=== PATIENT | male | born 1930 | race Caucasian/White ===

== ENCOUNTER 2018-06-27 03:19 | Inpatient (IN) | payer BC, OTHER ==
--- NOTE | 2018-06-27 03:31 | PDOC ---
History of Present Illness - General Stated Complaint: CHEST PAIN Time Seen by Provider: 06/27/18 03:28 - History of Present Illness Initial Comments: 06/27/18 03:29 88 yo M with h/o HLD, HTN, IDDM, A-fib ( on Plavix ) who p/w chest pain. Patient reports waking up and turning on side at approximately 0200 this AM, and experiencing sudden onset of BL lower chest pressure, now slightly improved , unremitting, and present at rest. No identifiable triggers or alleviators. Patient denies h/o similiar pain in past. Reports Marsh x 1 week. at bedside to assist in report. No home O2 or duoneb requirements. Patient denies Palpitations, LOBO, leg pain/swelling, vision change, palpitations , cough, wheezing, orthopena, PND, leg swelling/pain, N/V, F,C, urinary complaints, hematuria, BPR, abdominal pain, diarrhea, constipation, lightheadedness, weakness, sensory changes. PMHx: as noted above. Denies h/o ACS/CA, stent placement, CABG, PE/DVT. ROS: as noted SHx: Distant smoking history. Social Etoh. No recent Etoh intake. Denies h/o pancreatitis, or cholecystecomy. Allergies: NKDA Past History - Past Medical History Allergies/Adverse Reactions: Allergies Allergy/AdvReac Type Severity Reaction Status Date / Time No Known Allergies Allergy Verified 06/27/18 04:04 Home Medications: Ambulatory Orders Aspirin [ASA -] 81 mg PO DAILY 03/30/15 Clopidogrel Bisulfate [Plavix -] 75 mg PO DAILY 03/30/15 Finasteride [Proscar] 5 mg PO DAILY 03/30/15 Glipizide [Glipizide ER] 5 mg PO DAILY 03/30/15 Hydrochlorothiazide 25 mg PO DAILY 03/30/15 Lisinopril [Prinivil -] 40 mg PO DAILY 03/30/15 Metformin HCl [Glucophage] 1,000 mg PO BID 03/30/15 Pioglitazone HCl [Actos] 30 mg PO DAILY 03/30/15 Simvastatin [Zocor -] 20 mg PO HS 03/30/15 Anemia: No Asthma: No Cancer: No Cardiac Disorders: Yes (cad) CVA: No COPD: No CHF: No Dementia: No Diabetes: No GI Disorders: No Disorders: No HTN: Yes Hypercholesterolemia: Yes Liver Disease: No Seizures: No Thyroid Disease: No - Suicide/Smoking/Psychosocial Hx Smoking History: Never smoked Have you smoked in the past 12 months: No Review of Systems - Review of Systems Comments:: 06/27/18 03:29 GENERAL/CONSTITUTIONAL: No fever or chills. No weakness. HEAD, EYES, EARS, NOSE AND THROAT: No change in vision. No ear pain or discharge. No sore throat. CARDIOVASCULAR: + chest pain and shortness of breath RESPIRATORY: No cough, wheezing, or hemoptysis. GASTROINTESTINAL: No nausea, vomiting, diarrhea or constipation. GENITOURINARY: No dysuria, frequency, or change in urination. MUSCULOSKELETAL: No joint or muscle swelling or pain. No neck or back pain. SKIN: No rash NEUROLOGIC: No headache, vertigo, loss of consciousness, or change in strength/ sensation. ENDOCRINE: No increased thirst. No abnormal weight change HEMATOLOGIC/LYMPHATIC: No anemia, easy bleeding, or history of blood clots. ALLERGIC/IMMUNOLOGIC: No hives or skin allergy. *Physical Exam - Physical Exam Comments: 06/27/18 03:30 GENERAL: Awake, alert, and fully oriented, in no acute distress HEAD: No signs of trauma, normocephalic, atraumatic EYES: PERRLA, EOMI, sclera anicteric, conjunctiva clear ENT: Hearing grossly normal, nares patent, oropharynx clear without exudates. Moist mucosa NECK: Normal ROM, supple, no lymphadenopathy, JVD, or masses LUNGS: No distress, speaks full sentences, clear to auscultation bilaterally HEART: Irregular rate and nml rhythm, normal S1 and S2, no murmurs, rubs or gallops, peripheral pulses normal and equal bilaterally. ABDOMEN:+ Epigastric and RUQ ttp. Soft, NDS, normoactive bowel sounds. No guarding, no rebound. No masses EXTREMITIES : Normal inspection, Normal range of motion, no edema. No clubbing or cyanosis. NEUROLOGICAL: Cranial nerves II through XII grossly intact. Normal speech, normal gait, no focal sensorimotor deficits SKIN: Warm, Dry, normal turgor, no rashes or lesions noted Heart Score/ECG Review - History History: Slightly suspicious - Electrocardiogram EKG: Non specific repolarization disturbance - Age Age: >/= 65 - Risk Factors Risk Factors Heart Score: Yes Hx Hypercholesterolemia, Yes Hx Hypertension, Yes Hx Diabetes, Yes Smoking History, Yes Positive family hx of cardiac disease, Yes Hx Obesity Based on the list above the patient has:: >/=3 risk factors or Hx atherosclerotic disease - Troponin Troponin: </= normal limit - Score Heart Score - Total: 5 ED Treatment Course - LABORATORY CBC & Chemistry Diagram: 06/27/18 03:25 06/27/18 04:45 - RADIOLOGY Radiology Studies Ordered: Category Date Time Status CXRPORT [CHEST X-RAY PORTABLE*] [RAD] Stat Radiology 06/27/18 03:29 Ordered Medical Decision Making - Medical Decision Making 06/27/18 03:30 88 yo M with h/o HLD, SUGAR ( CPAP) HTN, IDDM, A-fib ( on Plavix ) who p/w chest pain at rest beginning this evening. Vitals wnl, AF, A&Ox3. Physical exam notable for RUQ and epigastria ttp. + Marsh x 1 week. ACS/CA r/o/ R/o PNA. Consider CHF, asthma, COPD. Will assess for pancreatitis, bliary dz. gastritis, pericardial or pleural effusions, cardiac dysarrythmias, hypoglycemia, electrolyte abnml, metabolic and toxic derangements, acid-base disturbances, infection. Will reassess. ED Course: 06/27/18 04:04 EKG: A-fib with HR 108, Absent CARLOS MANUEL, STD. + L ant fasc. block. Absent Q waves. Nml R wave progression. 06/27/18 04:45 Patient with HR 141, developed audible wheezing at bedside, with one episode of non bilious non bloody emesis. Placed on CPAP. HR imrpoved to 104 following Diltiazem. Diltiazem 10, Zofran 4 06/27/18 04:47 EKG: with Af-ib HR 141, Trop: Neg 06/27/18 05:45 BNP 1105 06/27/18 05:49 Flu: Neg 06/27/18 05:50 06/27/18 05:54 BUN/Cr: 44/1.5 Lipase 1500 AST/ALT: 728/347 ALK PHOSPH: 332 T bili: 2.0 Possible biliary obstruction. Will obtain RUQ U/S. 06/27/18 06:00 Likely pancreatitis/early BISAP score 2 CTAP 06/27/18 06:07 NPO, TG, NS 500 cc 06/27/18 06:26 Plan to admit to medicine for pancreatitis, chest pain and SOB at rest, elevated heart score ~5 Patient endorsed to day team. Awaiting medicine call back. pending admission, CTAP, RUQ U/S. *DC/Admit/Observation/Transfer Diagnosis at time of Disposition: Chest pain at rest, Atrial fibrillation with RVR Pancreatitis Qualifiers: Chronicity: acute Pancreatitis type: unspecified pancreatitis type Acute pancreatitis complication: unspecified Qualified Code(s): K85.90 - Acute pancreatitis without necrosis or infection, unspecified - Discharge Dispostion Condition at time of disposition: Stable Decision to Admit order: Yes - Referrals Referrals: Romario Euceda MD [Primary Care Provider] - - Patient Instructions Printed Discharge Instructions: DI for Atypical Chest Pain Additional Instructions: Please return to the emergency department with any new or worsening symptoms or concerns. Please follow up with your primary care physician within 72 hours. - Post Discharge Activity - Attestations Physician Attestion: 06/27/18 03:30 I attest to the information provided in this note.
[2018-06-27 04:04] VITALS: BMI 36.3
[2018-06-27] MEDS ORDERED: ASPIRIN 81 MG CHEWABLE TABLETS PO ONE (04:09)
[2018-06-27 04:26] LABS: BASO % 0.4 % (0-2.0); EOS % 0.2 % (0-4.5); HEMATOCRIT 37.1 % (35.4-49); HEMOGLOBIN 12.8 GM/dL (11.7-16.9); LYMPH % 8.6 % (8-40); MCH 30.3 pg (25.7-33.7); MCHC 34.4 g/dl (32.0-35.9); MEAN CELL VOLUME 88.1 fl (80-96); MEAN PLT VOLUME 9.6 fl (7.5-11.1); MONO % 5.9 % (3.8-10.2); NEUT % 84.9 % (42.8-82.8); PLATELET COUNT 165 K/MM3 (134-434); RBC 4.21 M/mm3 (4.00-5.60); RDW 16.6 % (11.9-15.9); WHITE BLOOD COUNT 7.9 K/mm3 (4.0-10.0)
[2018-06-27] MEDS ORDERED: ASPIRIN 81 MG CHEWABLE TABLETS ONE (04:32)
[2018-06-27] MEDS ORDERED: ONDANSETRON 4 MG/2 ML VIAL ONE (04:36)
--- NOTE | 2018-06-27 04:36 | PDOC ---
Attending Attestation - Resident Resident Name: Conner Guerrero - ED Attending Attestation I have performed the following: I have examined & evaluated the patient, The case was reviewed & discussed with the resident, I agree w/resident's findings & plan - HPI HPI: 06/27/18 04:45 Pt comes with CP that woke him up. - Physicial Exam PE: 06/27/18 20:59 Agree with resident exam. - Medical Decision Making 06/27/18 06:04 Pt has pancreatitis and hepatitis. We will send him to CT and admit to med surg under the hospitalist. Pt was refusing morphine that I had ordered for him earlier, but he states that he continues to feel discomfort, so I conviced him to take morphine and he reordered it, as he is willing to try it.
[2018-06-27] MEDS ORDERED: ONDANSETRON 4 MG/2 ML VIAL IVPB ONE (04:44)
[2018-06-27] MEDS ORDERED: dilTIAZem HCL 50 MG/10 ML - 10 ML VIAL IVPUSH ONE (04:44)
[2018-06-27] MEDS ORDERED: dilTIAZem HCL 50 MG/10 ML - 10 ML VIAL ONE (04:45)
[2018-06-27 05:52] LABS: ALBUMIN 3.2 g/dl (3.4-5.0); ALK PHOS 332 U/L (45-117); ANION GAP 11 MMOL/L (8-16); BLOOD UREA NITROGEN 44 mg/dL (7-18); CHLORIDE 96 mmol/L (98-107); CO2 28 mmol/L (21-32); CREATININE 1.5 mg/dL (0.55-1.3); GLUCOSE,RANDOM 213 mg/dL (74-106); LIPASE > 1500 U/L (73-393); POTASSIUM 3.8 mmol/L (3.5-5.1); SGOT/AST 728 U/L (15-37); SGPT/ALT 347 U/L (13-61); SODIUM 134 mmol/L (136-145); TOT PROT 7.2 g/dl (6.4-8.2)
[2018-06-27] MEDS ORDERED: morphine CARPU-JECT 2 MG/1 ML DISP.SYRIN IVPUSH ONE ×2 (05:54→07:02)
[2018-06-27] MEDS ORDERED: MORPHINE SULFATE 2 MG/ML VIAL ONE ×2 (05:58→07:28)
[2018-06-27] MEDS ORDERED: SODIUM CHLORIDE 500 ML IV STA (06:00)
--- NOTE | 2018-06-27 09:28 | HP ---
CHIEF COMPLAINT: Chest Pain PCP: Dr Romario Euceda ([facility]) HISTORY OF PRESENT ILLNESS: Pt is an 88 y/o gentleman (Romansh War Garryowen) with a significant past medical history of HLD, BPH, HTN, IDDM, A-fib (on Plavix), Lower extremity claudication , and SUGAR on CPAP who presented to [facility] due to chest pain and nausea. Pt endorses that around 2 am this morning he was lying in bed when he suddenly experienced a tightness in his chest. Pt states that this felt like a "seatbelt " across his chest. Pt also endorses feeling short of breath for the past 1 week a well. Pt endorses he had Urdu food that night which was greasy. Pt states that he experienced a similar episode in November while he was in [place]. Denies heavy alcohol use. Denies shortness of breath, chest pain, nausea/ vomiting. Social Hx: Former smoker quit 30+ years ago. 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 FH: Father DM, Cancer?. Mother-Healthy. Siblings Healthy Surgical Hx: Kidney abscess removal. Meniscus surgery left knee. ER course was notable for: (1) CTAP--> Acute Calculus Cholecystitis. 3 mm CBD stone at Ampulla Vatter (2) Lipase > 1500 Family History: Allergies No Known Allergies Allergy (Verified 06/27/18 04:04) HOME MEDICATIONS: Home Medications Medication Instructions Recorded Aspirin [ASA -] 81 mg PO DAILY 03/30/15 Clopidogrel Bisulfate [Plavix -] 75 mg PO DAILY 03/30/15 Finasteride [Proscar] 5 mg PO DAILY 03/30/15 Glipizide [Glipizide ER] 5 mg PO DAILY 03/30/15 Hydrochlorothiazide 25 mg PO DAILY 03/30/15 Lisinopril [Prinivil -] 40 mg PO DAILY 03/30/15 Metformin HCl [Glucophage] 1,000 mg PO BID 03/30/15 Pioglitazone HCl [Actos] 30 mg PO DAILY 03/30/15 Simvastatin [Zocor -] 20 mg PO HS 03/30/15 REVIEW OF SYSTEMS CONSTITUTIONAL: PRESENT: nausea HEENT: Absent: rhinorrhea, nasal congestion, throat pain, throat swelling, difficulty swallowing, mouth swelling, ear pain, eye pain, visual changes CARDIOVASCULAR: present: chest pain (at time of incident) RESPIRATORY: Absent: cough, shortness of breath, dyspnea with exertion, orthopnea, wheezing, stridor, hemoptysis GASTROINTESTINAL: Absent: abdominal pain, abdominal distension, nausea, vomiting, diarrhea, constipation, melena, hematochezia GENITOURINARY: Absent: dysuria, frequency, urgency, hesitancy, hematuria, flank pain, genital pain MUSCULOSKELETAL: Absent: myalgia, arthralgia, joint swelling, back pain, neck pain SKIN: Absent: rash, itching, pallor HEMATOLOGIC/IMMUNOLOGIC: Absent: easy bleeding, easy bruising, lymphadenopathy, frequent infections ENDOCRINE: Absent: unexplained weight gain, unexplained weight loss, heat intolerance, cold intolerance NEUROLOGIC: Absent: headache, focal weakness or paresthesias, dizziness, unsteady gait, seizure, mental status changes, bladder or bowel incontinence PSYCHIATRIC: Absent: anxiety, depression, suicidal or homicidal ideation, hallucinations. PHYSICAL EXAMINATION Vital Signs - 24 hr 06/27/18 06/27/18 06/27/18 03:19 03:40 04:20 Temperature 98.1 F 97.6 F 98.2 F Pulse Rate 56 L Pulse Rate [ 82 88 Right Apical] Respiratory 18 20 20 Rate Blood Pressure 131/69 Blood Pressure 161/77 155/79 [Right Arm] O2 Sat by Pulse 97 94 L Oximetry (%) 06/27/18 06/27/18 06/27/18 05:02 09:11 09:13 Temperature Pulse Rate 65 Pulse Rate [ Right Apical] Respiratory Rate Blood Pressure Blood Pressure [Right Arm] O2 Sat by Pulse 100 97 97 Oximetry (%) GENERAL: AAOx3, NAD, pleasant gentleman HEAD: NC/AT EYES: Sclera Jaundice. EOMI EARS, NOSE, THROAT: Ears normal, nares patent, oropharynx clear without exudates. Moist mucous membranes. NECK: No JVD appreciated LUNGS: Dec BS @ Bases HEART:Irregularly irregular ABDOMEN: Obese, Tympanic. Nontender. Dilated periumbilical veins. No fluid wave MUSCULOSKELETAL: FROM throughout UPPER EXTREMITIES: No CCE. Ring finger Right hand amputated LOWER EXTREMITIES: No CCE. Onychomycosis PSYCHIATRIC: Cooperative. Good eye contact. Appropriate mood and affect. SKIN: No rashes or lesions appreciated Laboratory Results - last 24 hr 06/27/18 06/27/18 06/27/18 03:25 03:25 03:25 WBC 7.9 RBC 4.21 Hgb 12.8 Hct 37.1 MCV 88.1 MCH 30.3 MCHC 34.4 RDW 16.6 H Plt Count 165 D MPV 9.6 Absolute Neuts (auto) 6.7 Neutrophils % 84.9 H D Lymphocytes % 8.6 D Monocytes % 5.9 Eosinophils % 0.2 Basophils % 0.4 Nucleated RBC % 0 Sodium Cancelled Potassium Cancelled Chloride Cancelled Carbon Dioxide Cancelled Anion Gap Cancelled BUN Cancelled Creatinine Cancelled Creat Clearance w eGFR Cancelled Random Glucose Cancelled Calcium Cancelled Total Bilirubin Cancelled AST Cancelled ALT Cancelled Alkaline Phosphatase Cancelled Creatine Kinase Cancelled Troponin I Cancelled B-Natriuretic Peptide Total Protein Cancelled Albumin Cancelled Triglycerides Lipase Influenza A (Rapid) Influenza B (Rapid) 06/27/18 06/27/18 06/27/18 04:45 04:45 04:45 WBC RBC Hgb Hct MCV MCH MCHC RDW Plt Count MPV Absolute Neuts (auto) Neutrophils % Lymphocytes % Monocytes % Eosinophils % Basophils % Nucleated RBC % Sodium 134 L Potassium 3.8 Chloride 96 L Carbon Dioxide 28 Anion Gap 11 BUN 44 H Creatinine 1.5 H Creat Clearance w eGFR 44.17 Random Glucose 213 H Calcium 9.0 Total Bilirubin 2.0 H AST 728 H ALT 347 H Alkaline Phosphatase 332 H Creatine Kinase 98 Troponin I < 0.02 B-Natriuretic Peptide 1105.9 H Total Protein 7.2 Albumin 3.2 L Triglycerides Lipase > 1500 H Influenza A (Rapid) Negative Influenza B (Rapid) Negative 06/27/18 06:30 WBC RBC Hgb Hct MCV MCH MCHC RDW Plt Count MPV Absolute Neuts (auto) Neutrophils % Lymphocytes % Monocytes % Eosinophils % Basophils % Nucleated RBC % Sodium Potassium Chloride Carbon Dioxide Anion Gap BUN Creatinine Creat Clearance w eGFR Random Glucose Calcium Total Bilirubin AST ALT Alkaline Phosphatase Creatine Kinase Troponin I B-Natriuretic Peptide Total Protein Albumin Triglycerides 125 Lipase Influenza A (Rapid) Influenza B (Rapid) ASSESSMENT/PLAN: Pt is an 88 y/o gentleman (Romansh War [place]) with a significant past medical history of HLD, BPH, HTN, IDDM, A-fib (on Plavix), Lower extremity claudication , and SUGAR on CPAP who presented to [facility] due to chest pain and nausea. #Gallstone Pancreatitis: CTAP--> Acute calculus cholecystitis. 3 mm CBD calculus seen at level of ampulla. CBD dilated at 0.8 cm. -NPO -LR@125cc/hr -GI consult--> Dr Ruvalcaba -Surgery Consult- Dr Hill #HLD Will hold Statin in light of Transaminitis #BPH Continue Proscar 5 mg daily #IDDM Will withhold pt's home dose Lantus Will start ISS #A-FIB A-fib with HR 108, Absent CARLOS MANUEL, STD. + L ant fasc. block. Absent Q waves. Nml R wave progression. -Not on any AC for unnown reason -[id number]--> 5-6 -Plavix/ASA on hold in light of anticipated surgery -Receiving Diltiazem CD 18 Daily at home. Started on Lopressor 25 BID currently. #HTN Will resume Lisinopril when Renal function WNL Withold Thiazides as known to cause pancreatitis. #SUGAR Continue CPAP #FEN LR@125cc/hr Monitor electrolytes NPO #DVT ppx: HepSQTID #Dispo Tele Visit type - Emergency Visit Emergency Visit: Yes ED Registration Date: 06/27/18 Care time: The patient presented to the Emergency Department on the above date and was hospitalized for further evaluation of their emergent condition. - New Patient This patient is new to me today: Yes Date on this admission: 06/27/18 - Critical Care Critical Care patient: No
[2018-06-27] MEDS ORDERED: PIPERACILLIN/TAZOB 3.375 GM 3.375 GM/50 ML BAG IVPB ONE (09:34)
[2018-06-27 09:42] LABS: LDH 540 U/L (87-246); TRIGLYCERIDES 152 mg/dL (0-150)
[2018-06-27] MEDS ORDERED: LACTATED RINGERS SOLUTION 1,000 ML/1,000 ML INFUS.BAG IV SCH (09:45)
[2018-06-27] MEDS ORDERED: PIPERACILLIN/TAZOB 3.375 GM 3.375 GM in DEXTROSE 5%-WATER - 50 ML IVPB SCH ×2 (10:00→18:00)
[2018-06-27] MEDS: INSULIN SLIDING SCALE (NOVOLOG) 1 VIAL SQ SCH ×3 (12:04→21:45)
[2018-06-27 12:22] LABS: MAGNESIUM 1.6 mg/dL (1.8-2.4); PHOSPHOROUS 3.2 mg/dL (2.5-4.9)
--- NOTE | 2018-06-27 12:22 | PN ---
Progress Note (short form) - Note Progress Note: Chief Complaint: Events noted, notes reviewed, abdominal discomfort with nausea and vomiting, denies any chest pain or dyspnea History of Present Illness: Seen and examined on telemetry. Full consult dictated - Current Medication List Current Medications: Current Medications Heparin Sodium (Porcine) (Heparin -) 5,000 unit SQ TID CEASAR Piperacillin Sod/Tazobactam (Sod 3.375 gm/ Dextrose) 50 mls @ 100 mls/hr IVPB Q8H-IV CEASAR; Protocol Piperacillin Sod/Tazobactam (Sod 3.375 gm/ Dextrose) 50 mls @ 100 mls/hr IVPB Q8H-IV CEASAR; Protocol Stop: 06/28/18 09:59 Last Admin: 06/27/18 09:45 Dose: 100 mls/hr Lactated Ringer's (Lactated Ringers Solution) 1,000 ml in 1,000 mls @ 125 mls/ hr IV ASDIR CEASAR Last Admin: 06/27/18 09:51 Dose: 125 mls/hr Insulin Aspart (Novolog Vial Sliding Scale -) 1 vial SQ ACHS CEASAR; Protocol Last Admin: 06/27/18 12:04 Dose: Not Given Home Medications Medication Instructions Recorded Aspirin [ASA -] 81 mg PO DAILY 03/30/15 Clopidogrel Bisulfate [Plavix -] 75 mg PO DAILY 03/30/15 Finasteride [Proscar] 5 mg PO DAILY 03/30/15 Glipizide [Glipizide ER] 5 mg PO DAILY 03/30/15 Hydrochlorothiazide 25 mg PO DAILY 03/30/15 Lisinopril [Prinivil -] 40 mg PO DAILY 03/30/15 Metformin HCl [Glucophage] 1,000 mg PO BID 03/30/15 Pioglitazone HCl [Actos] 30 mg PO DAILY 03/30/15 Simvastatin [Zocor -] 20 mg PO HS 03/30/15 Review of Systems Cardiovascular: As noted above Respiratory: denies: denies: Cough or Sputum Production Gastrointestinal: reports: Nausea, Vomiting and Abdominal Discomfort but denies Diarrhea or Constipation Musculoskeletal: No Symptoms Reported Endocrine: No Symptoms Reported - Objective Vital Signs: Last Vital Signs Temp Pulse Resp BP Pulse Ox 98.0 F 106 H 20 113/66 96 06/27/18 12:13 06/27/18 12:13 06/27/18 12:13 06/27/18 12:13 06/27/18 09:44 Intake & Output 06/24/18 06/25/18 06/26/18 06/27/18 23:59 23:59 23:59 23:59 Weight 272 lb 3.2 oz Constitutional: No Distress Neck: Supple Negative JVD No Bruit Cardiovascular: S1 S2 Irregularly Irregular Respiratory: clear to A&P Bilaterally Gastrointestinal: Soft Benign Normal Bowel Sounds Ext: Negative Edema Labs: Troponin, BNP 06/27/18 06/27/18 06/27/18 03:25 04:45 04:45 Troponin I Cancelled < 0.02 B-Natriuretic Peptide 1105.9 H CBC, BMP 06/27/18 03:25 06/27/18 04:45 Hepatic Panel Total Bilirubin 2.0 mg/dL (0.2-1) H 06/27/18 04:45 AST 728 U/L (15-37) H 06/27/18 04:45 ALT 347 U/L (13-61) H 06/27/18 04:45 Alkaline Phosphatase 332 U/L (45-117) H 06/27/18 04:45 Albumin 3.2 g/dl (3.4-5.0) L 06/27/18 04:45 Assessment/Plan ASSESSMENT: 1. Clinical presentation consistent with acute calculus cholecystitis 2. CAD coronary artery calcification angina pectoris 3. Diastolic LV dysfunction with clinical class 0 NYHA classification LV failure 4. Persistent atrial fibrillation [id number] score of 5-6 on no A/C unknown reason on ASA and Plavix 5. HTN 6. DM 7. Hypercholesterolemia 8. Chronic kidney disease PLAN: 1. B-Blockers 2. Resume Lisinopril therapy once renal function at baseline with caution and close monitoring of renal function 3. Withhold HCTZ therapy 4. Withhold statin therapy 5. Withhold ASA and Plavix therapy pending intervention (withhold at least for 5 -7 days), ideally patient should be A/C considering the above noted [id number] score of 5-6 6. 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 Paulina Myers [facility] [place]/Fabiola Garduno MD
--- NOTE | 2018-06-27 13:59 | CONS ---
DATE OF CONSULTATION: DATE OF DICTATION: 06/27/2018 CONSULTATION REQUESTED BY: Hospitalist Service. CHIEF COMPLAINT: Abdominal discomfort, cardiovascular evaluation. HISTORY OF PRESENT ILLNESS: History was obtained from the patient and his daughter, who was at the bedside. An 88-year-old male with known history of coronary artery disease, coronary artery calcification, angina pectoris, probable diastolic left ventricular dysfunction with clinical class 0 [place] Heart Association classification left ventricular failure, persistent atrial fibrillation on no anticoagulation therapy, [id number] score of 5 to 6, hypertensive cardiovascular disease, diabetes mellitus, hypercholesterolemia, who presented to [facility] with sudden onset of abdominal discomfort with associated nausea, vomiting. Upon evaluation patient was noted to have evidence of acute calculous cholecystitis. The patient was noticed to be in atrial fibrillation with adequate ventricular response. The patient denies any chest discomfort. The patient denies any dyspnea, orthopnea, paroxysmal nocturnal dyspnea or peripheral edema. The patient denies any palpitations, dizziness, lightheadedness or syncope. The patient denies any fatigue or tiredness. According to the patient, subsequent to the above-noted diagnosis of atrial fibrillation in November 2017 he was initiated on Plavix therapy to be administered in conjunction with aspirin. PAST MEDICAL HISTORY: Coronary artery disease, coronary artery calcification, angina pectoris, diastolic left ventricular dysfunction with clinical class 0 [place] heart Association classification left ventricular failure, persistent atrial fibrillation on no anticoagulation therapy, [id number] of 5 to 6, hypertensive cardiovascular disease, diabetes mellitus, hypercholesterolemia. SOCIAL HISTORY: Nonsmoker. FAMILY HISTORY: Positive for coronary artery disease. ALLERGIES: None reported. MEDICAL THERAPY AT HOME: Included aspirin 81 mg once a day, Plavix 75 mg once a day, Proscar 5 mg once a day, glipizide 5 mg once a day, hydrochlorothiazide 25 mg once a day, lisinopril 40 mg once a day, metformin 1000 mg twice a day, Actos 30 mg once a day, Zocor 20 mg once a day. REVIEW OF SYSTEMS: Head and Neck: Denies headache, photophobia, blurring of vision. Respiratory: No cough or sputum production. Cardiovascular: As noted above. Gastrointestinal: Reported abdominal discomfort, nausea, vomiting, denied any constipation or diarrhea. Genitourinary: History of benign prostatic hypertrophy. Musculoskeletal: History of degenerative joint disease. PHYSICAL EXAMINATION:Vital Signs: Blood pressure is 113/66 mmHg. Pulse rate is 106 beats per minute, irregular. Head and Neck: Pupils equal, reactive to light and accommodation. Extraocular muscles are intact. Anicteric sclerae. Negative JVD. No bruit appreciate. Chest: Clear to auscultation and percussion. Cardiovascular: S1, S2, irregularly irregular. No murmurs appreciated. Abdomen: Soft, benign. Normoactive bowel sounds. Extremities: Negative for edema. Distal pulses 1+. No calf tenderness. STUDIES: Electrocardiogram reveals he has atrial fibrillation with left axis deviation, poor R wave progression, nonspecific ST-T wave abnormality. Troponin I less than 0.02. B-natriuretic peptide is 81,105. CBC reveals a white cell count 7.9, hemoglobin 12.8, platelet count 155. Basic metabolic profile revealed a sodium 134, potassium 3.8, BUN 44, creatinine 1.5, glucose 213. AST 728, ALT 347, alkaline phosphatase 332. Total bilirubin 2.0. ASSESSMENT: 1. Clinical presentation consistent with acute calculous cholecystitis. 2. Coronary artery disease, coronary artery calcification on CT scan. 3. Angina pectoris, stable. 4. Diastolic left ventricular dysfunction with clinical class 0 [place] Heart Association classification left ventricular failure. 5. Persistent atrial fibrillation, [id number] (congestive heart failure, hypertension, age, diabetes and stroke with vascular disease) of 5-6 on no anticoagulation and on recent therapy on aspirin and Plavix. 6. Hypertensive cardiovascular disease. 7. Diabetes mellitus. 8. Hypercholesterolemia. 9. Chronic kidney disease. RECOMMENDATION: 1. Beta blockers. 2. Resumption of lisinopril once renal function at baseline with caution and close monitoring of renal function. 3. Withhold hydrochlorothiazide therapy. 4. Would hold statin therapy in view of liver function test abnormality. 5. Would hold aspirin and Plavix therapy pending intervention. Would hold at least 5-7 days. Ideally patient should be anticoagulated considering the above-noted [id number] score of 5 to 6, unless it is absolutely contraindicated. 6. If intervention is planned, there are no absolute contraindications in proceeding with planned interventions, since there is no clinical evidence of acute coronary syndrome and/or decompensated congestive heart failure and/or malignant ventricular arrhythmia. 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 Melo Myers at [facility] [place]. Thank you for your kind referral. REGGIE PRASAD M.D. [id number]
[2018-06-27] MEDS: HEPARIN NA (PORCINE) 5,000 UNITS/ML 1ML VIAL SQ SCH ×2 (14:00→21:44)
[2018-06-27] MEDS: FINASTERIDE 5 MG TABLET (FP) PO SCH (14:00)
[2018-06-27] MEDS: METOPROLOL TARTRATE 25 MG TABLET (FP) PO SCH ×2 (14:00→21:45)
--- NOTE | 2018-06-27 15:40 | PN ---
Progress Note (short form) - Note Progress Note: ID consult dictated imp/reccd 88 yo man with second episode of abdominal pain ruq radiating to backwith nausea and vomiting no fevers or chills ER w/u notable for imaging c/w acute calculous cholycystitis and abnl lfts and elevated lipase cholycystitis gallstone pancreatitis history afib blood cultures continue zosyn GI and surgery to evaluate
--- NOTE | 2018-06-27 17:07 | PN ---
Teaching Attending Note Name of Resident: Jarret Pereira ATTENDING PHYSICIAN STATEMENT I saw and evaluated the patient. I reviewed the resident's note and discussed the case with the resident. I agree with the resident's findings and plan as documented. SUBJECTIVE: Patient is a 88yo male presented with diffuse midepigastric pain started after eating nigerien food [employer]. This is the second episode, the 1st episode was last year and was admitted [facility], pain resolved afterward. No fever or chills, no shortness of breath. OBJECTIVE: Vital Signs Temperature 98.2 F 06/27/18 15:14 Pulse Rate 114 H 06/27/18 15:14 Respiratory Rate 22 H 06/27/18 15:14 Blood Pressure 108/67 06/27/18 15:14 O2 Sat by Pulse Oximetry (%) 96 06/27/18 13:41 Initial Vital Signs Temp Pulse Resp BP Pulse Ox 98.1 F 56 L 18 131/69 97 06/27/18 03:19 06/27/18 03:19 06/27/18 03:19 06/27/18 03:19 06/27/18 03:19 GENERAL: AAOx3, NAD, nice gentleman HEAD: NC/AT EYES: Sclera Jaundice. EOMI EARS, NOSE, THROAT: Ears normal, oropharynx clear . no exudates. MMM. NECK: No JVD , supple. LUNGS: decreased BS @ Bases bl. HEART:Irregularly irregular ABDOMEN: soft, large abdomen, NT, positive for BS. EXTREMITIES: No CCE. Ring finger Right hand amputated PSYCHIATRIC: Cooperative. Good eye contact. Appropriate mood and affect. SKIN: No rashes or lesions appreciated CBCD WBC 7.9 K/mm3 (4.0-10.0) 06/27/18 03:25 RBC 4.21 M/mm3 (4.00-5.60) 06/27/18 03:25 Hgb 12.8 GM/dL (11.7-16.9) 06/27/18 03:25 Hct 37.1 % (35.4-49) 06/27/18 03:25 MCV 88.1 fl (80-96) 06/27/18 03:25 MCHC 34.4 g/dl (32.0-35.9) 06/27/18 03:25 RDW 16.6 % (11.9-15.9) H 06/27/18 03:25 Plt Count 165 K/MM3 (134-434) D 06/27/18 03:25 MPV 9.6 fl (7.5-11.1) 06/27/18 03:25 CMP Sodium 134 mmol/L (136-145) L 06/27/18 04:45 Potassium 3.8 mmol/L (3.5-5.1) 06/27/18 04:45 Chloride 96 mmol/L (98-107) L 06/27/18 04:45 Carbon Dioxide 28 mmol/L (21-32) 06/27/18 04:45 Anion Gap 11 MMOL/L (8-16) 06/27/18 04:45 BUN 44 mg/dL (7-18) H 06/27/18 04:45 Creatinine 1.5 mg/dL (0.55-1.3) H 06/27/18 04:45 Creat Clearance w eGFR 44.17 (>60) 06/27/18 04:45 Random Glucose 213 mg/dL (74-106) H 06/27/18 04:45 Calcium 9.0 mg/dL (8.5-10.1) 06/27/18 04:45 Total Bilirubin 2.0 mg/dL (0.2-1) H 06/27/18 04:45 AST 728 U/L (15-37) H 06/27/18 04:45 ALT 347 U/L (13-61) H 06/27/18 04:45 Alkaline Phosphatase 332 U/L (45-117) H 06/27/18 04:45 Total Protein 7.2 g/dl (6.4-8.2) 06/27/18 04:45 Albumin 3.2 g/dl (3.4-5.0) L 06/27/18 04:45 CARDIAC ENZYMES Creatine Kinase 98 U/L (26-308) 06/27/18 04:45 Troponin I 0.08 ng/ml (0.00-0.05) H 06/27/18 11:00 Current Medications Generic Name Dose Route Start Last Admin Trade Name Freq PRN Reason Stop Dose Admin Finasteride 5 mg 06/27/18 12:45 06/27/18 14:00 Proscar - PO 5 mg DAILY CEASAR Administration Heparin Sodium (Porcine) 5,000 unit 06/27/18 14:00 06/27/18 14:00 Heparin - SQ 5,000 unit TID CEASAR Administration Piperacillin Sod/Tazobactam 50 mls @ 100 mls/hr 06/27/18 18:00 Sod 3.375 gm/ Dextrose IVPB Q8H-IV CEASAR Protocol Lactated Ringer's 1,000 ml in 1,000 mls @ 125 mls/hr 06/27/18 09:45 06/27/18 09:51 Lactated Ringers Solution IV 125 mls/hr ASDIR CEASAR Administration Insulin Aspart 1 vial 06/27/18 11:00 06/27/18 12:04 Novolog Vial Sliding Scale - SQ Not Given ACHS CEASAR Protocol Metoprolol Tartrate 25 mg 06/27/18 13:15 06/27/18 14:00 Lopressor - PO 25 mg BID CEASAR Administration Home Medications Medication Instructions Recorded Aspirin [ASA -] 81 mg PO DAILY 03/30/15 Clopidogrel Bisulfate [Plavix -] 75 mg PO DAILY 03/30/15 Finasteride [Proscar] 5 mg PO DAILY 03/30/15 Glipizide [Glipizide ER] 5 mg PO DAILY 03/30/15 Hydrochlorothiazide 25 mg PO DAILY 03/30/15 Lisinopril [Prinivil -] 40 mg PO DAILY 03/30/15 Metformin HCl [Glucophage] 1,000 mg PO BID 03/30/15 Pioglitazone HCl [Actos] 30 mg PO DAILY 03/30/15 Simvastatin [Zocor -] 20 mg PO HS 03/30/15 ASSESSMENT AND PLAN: Patient is a 88yo male presented with diffuse midepigastric pain started after eating nigerien food [employer] today. This is the second episode, the 1st episode was last year and was admitted [facility], pain resolved afterward. No fever or chills , no shortness of breath. # Acute calculus cholecystitis radiating to the back with nausea and vomiting; ID/GI/Sx is on the case, IV antibiotics Zosyn # Acute gallstone Pancreatitis: NPO, IVF continue, repeat labs in am # Acute diastolic CHF: continue to monitor # ARF on CKD: IVF continue , Hold Lisinopril for now once renal fcn improves will resume aceI, continue to hold HCtz as well #Acute hyponatremia: IVF , hold HCTZ #Acute Transaminits, will trend, hold Statins for now. # Hx of Afib [id number] score of 5-6 on no A/C : unknown reason why the patient is on ASA and Plavix, needs to be held if needed for surgery. # HX of DM will hold Metformin #Hypercholesterolemia hold statin for now # Morbid Obesity DVt Px: Heparin sq [employer] Developer Dr. Paulina Myers [facility] [place].
[2018-06-27] MEDS ORDERED: DEXTROSE 5%-WATER - 50 ML IVPB ONE (17:13)
[2018-06-27] MEDS ORDERED: PIPERACILLIN/TAZOBACTAM 3.375 GM VIAL IVPB ONE (17:13)
[2018-06-27] MEDS ORDERED: morphine SULFATE 4 MG/ML VIAL ONE (17:52)
[2018-06-27] MEDS: MORPHINE SULFATE 2 MG/ML VIAL IVPUSH PRN (18:03)
--- NOTE | 2018-06-27 19:07 | CONS ---
DATE OF CONSULTATION: 06/27/2018 The patient is an 88-year-old gentleman with a past medical history of hyperlipidemia, BPH, hypertension, insulin-dependent diabetes, atrial fibrillation, on Plavix, SUGAR, who presented to the hospital with complaints of upper abdomen abdominal pain which radiated to the chest and back. He states that his symptoms began on Thursday; however, were intermittent at the time. Pain worsened and also was accompanied by nausea and vomiting. He had a similar episode over the summer but did not seek medical attention at the time. He denies any hematemesis, fevers, chills, change in his bowel habit, melena, hematochezia. He admits to 1 episode of noticing blood in his stool over the summer also; however, he did not seek medical attention at the time. 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 Past medical and surgical history as listed in the HPI. ALLERGIES: No known drug allergies. SOCIAL HISTORY: He is a former smoker, quit over 30 years ago. He rarely drinks alcohol. 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 FAMILY HISTORY: No history of GI or gynecological malignancy. SURGICAL HISTORY: Kidney abscess removal and knee surgery. Home medications were reviewed and include aspirin, Plavix, Proscar, glipizide, hydrochlorothiazide, Prevnar, Glucophage, Actos, and Zocor. Review of systems negative except for pertinent positives in the HPI. PHYSICAL EXAMINATION: Vital Signs: Temperature 98, pulse 106, blood pressure 108/67, respiratory rate 12, oxygen saturation 96%. General: In no acute distress. HEENT: Anicteric sclerae. Cardiovascular: S1, S2, regular rate and rhythm. Lungs: Bilaterally clear to auscultation. Abdomen: Soft and nontender. Extremities: No edema. LABORATORY DATA: White blood cell count 7.9, hemoglobin 12.8, hematocrit 37, MCV 30, platelet count 165. Sodium 134, potassium 3.8, BUN 44, creatinine 1.5, glucose 213, total bilirubin 2, AST 728, ALT 347, alkaline phosphatase 332. Troponin 0.12, previously it was 0.08, lipase greater than 15,000. Patient had an abdominal and pelvis CT scan without contrast, which revealed an acute calculous cholecystitis , 3 mm common bile duct calculus at the level of the ampulla, and the common bile duct appears to be mildly dilated, 0.8 cm diameter. Ultrasound revealed 0.3 cm common bile duct calculus at the level of the ampulla, was not appreciated on the ultrasound study. Common bile duct measures 0.9 cm and there is acute cholecystitis. IMPRESSION: Acute cholecystitis / transaminitis, may be suspicious for choledocholithiasis or passed stone. Also with pancreatitis, lipase of greater than 1500, and clinically is symptomatic -- gallstone pancreatitis. RECOMMENDATIONS: N.p.o., IV fluid, empiric antibiotics. Recommend Zosyn therapy. Trend liver tests daily while hospitalized. MRCP was ordered for completeness. If the MRCP reveals choledocholithiasis, or if his liver enzymes do not trend down he will need ercp. Surgery consultation and potential cholecystectomy. Continue him on adequate hydration and monitor abdominal exams. Cardiology evaluation for abnormal troponin and chest pain. The patient will be followed by the GI service. DO ENMANUEL DAMON/[id number] MTDD
--- NOTE | 2018-06-27 20:36 | CONS ---
DATE OF CONSULTATION: 06/27/2018 This is an 88-year-old man who presented with sudden onset of abdominal pain with nausea vomiting last night. He had a similar episode over the summer and saw his doctor at that time. He is followed by Dr. Euceda. He denies any fevers or chills. In the emergency room, he was very uncomfortable. He had eaten Turkish food that night as well. His past medical history is notable for hypertension, hyperlipidemia, BPH, diabetes, atrial fibrillation, lower extremity claudication, and obstructive sleep apnea, on CPAP. Surgical history is notable for kidney abscess removal and he has had meniscus surgery to his left knee. He has no known drug allergies. His medications at home include aspirin, Plavix, Proscar, glipizide, hydrochlorothiazide, lisinopril, metformin, Actos, and Zocor. SOCIAL HISTORY: He does not smoke. 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 He lives with his . Family history is positive for coronary artery disease. He also has a history of [id number] diabetes. His family history is notable for diabetes in his father. Review of systems is notable for nausea and abdominal pain. He has no diarrhea or dysuria. He has no flank pain. He has not been on any recent antibiotics, per his , who is present at the bedside. PHYSICAL EXAMINATION: Vital Signs: Temperature is 98.8. Pulse of 90. Blood pressure 130/70. Respiratory rate 20. HEENT: Normocephalic. His eyes are anicteric. Neck: Supple. Lungs: Clear to auscultation. Heart: Regular rate and rhythm. Abdomen: Soft. He has right upper quadrant discomfort to deep palpation. Extremities: Without edema. Labs are notable for a white count of 7.9, hemoglobin 12.8, platelets 165. Chemistries are notable for a total bilirubin of 2, AST 728, ALT 347, alkaline phosphatase of 332. His BUN is 44 and creatinine 1.5. He had a CAT scan of his abdomen and pelvis as well as an ultrasound that are notable for calculous cholecystitis, and his lipase is elevated at greater than 1500. In summary, this is an elderly man with atrial fibrillation, with 2nd episode of abdominal pain, right upper quadrant, with cholecystitis. Perhaps he has passed a stone, or gallstone pancreatitis. History of atrial fibrillation. Would obtain blood cultures, continue Zosyn. GI and Surgery to evaluate. Further recommendations to follow. He had some mild CKD as well, and will adjust his antibiotics accordingly. Will also order blood cultures, which have not been sent. LAZARO COOLEY M.D. MELISSA/[id number]
[2018-06-27] MEDS ORDERED: ACETAMINOPHEN 1000 MG/100 ML VIAL (NON FORMULARY) IVPB ONE (22:56)
--- NOTE | 2018-06-27 22:56 | RAPID ---
Physical Examination Vital Signs: Vital Signs Temperature 98.8 F 06/27/18 18:30 Pulse Rate 90 06/27/18 18:30 Respiratory Rate 20 06/27/18 18:30 Blood Pressure 130/70 06/27/18 18:30 O2 Sat by Pulse Oximetry (%) 96 06/27/18 13:41 Labs: CBC, BMP 06/27/18 03:25 06/27/18 04:45 Rapid Response - Rapid Response Assessment: Pt seen in the unit. Per nurse, pt was seen with fever of 102.3, had severe rigors, chills. Pt not currently complaining of any pain, but admits to chills. Denies chest pain, sob, abd pain. Currently resting comfortably in bed. VS 131/106 HR 123 Temp 102.3 (oral) 96% O2 PE: AAOx3. NAD. Audible wheezes, b/l anterior wheezes upon auscultation Abd soft, NT/ND. +BS EKG showed Afib, HR 112, QTc 458 ms (unchanged from previous) A/P: -CBC/CMP -U/A -UCx/BCx -Lac -CXR -EKG -Dr Hill contacted and made aware; recommended. Not a surgical candidate and would need ERCP or cholecystostomy tube. Will attempt to transfer to [facility]. UPDATE: Spoke to [facility] transfer center, accepted for transfer by Dr. Kern. Vaniasyn 4.5 gm, Flagyl [address] Mahan who was consulted by primary team. Awaiting bed at [facility] for trasnfer.
[2018-06-27] MEDS ORDERED: ALBUTEROL SO4 2.5/IPRATROPIUM 0.5 INH SOL 3 ML VIAL.NEB. NEB ONE ×2 (22:57→23:01)
[2018-06-27 23:58] LABS: BASO % 0.2 % (0-2.0); EOS % 0.2 % (0-4.5); HEMATOCRIT 36.5 % (35.4-49); HEMOGLOBIN 12.5 GM/dL (11.7-16.9); LYMPH % 10.1 % (8-40); MCH 30.1 pg (25.7-33.7); MCHC 34.3 g/dl (32.0-35.9); MEAN CELL VOLUME 87.8 fl (80-96); MEAN PLT VOLUME 9.3 fl (7.5-11.1); MONO % 0.8 % (3.8-10.2); NEUT % 88.7 % (42.8-82.8); PLATELET COUNT 170 K/MM3 (134-434); RBC 4.16 M/mm3 (4.00-5.60); RDW 16.2 % (11.9-15.9); WHITE BLOOD COUNT 2.1 K/mm3 (4.0-10.0)
[2018-06-28] MEDS ORDERED: PIPERACILLIN/TAZOB 4.5 GM 4.5 GM in DEXTROSE 5%-WATER 100 ML IVPB ONE (00:22)
[2018-06-28] MEDS ORDERED: PIPERACILLIN/TAZOB 4.5 GM 4.5 GM in DEXTROSE 5%-WATER 100 ML IVPB SCH (00:30)
[2018-06-28 00:47] LABS: ALBUMIN 2.8 g/dl (3.4-5.0); ALK PHOS 359 U/L (45-117); ANION GAP 11 MMOL/L (8-16); BILIRUBIN,TOTAL 4.5 mg/dL (0.2-1); BLOOD UREA NITROGEN 36 mg/dL (7-18); CALCIUM 8.6 mg/dL (8.5-10.1); CHLORIDE 97 mmol/L (98-107); CO2 26 mmol/L (21-32); CREATININE 1.5 mg/dL (0.55-1.3); GLUCOSE,RANDOM 137 mg/dL (74-106); POTASSIUM 3.7 mmol/L (3.5-5.1); SGOT/AST 684 U/L (15-37); SGPT/ALT 550 U/L (13-61); SODIUM 134 mmol/L (136-145); TOT PROT 6.5 g/dl (6.4-8.2)
[2018-06-28] MEDS ORDERED: DEXTROSE 5%-WATER 100 ML IVPB ONE ×3 (02:25→16:53)
[2018-06-28] MEDS ORDERED: PIPERACILLIN/TAZOBACTAM 4.5 GM VIAL IVPB ONE ×3 (02:25→16:53)
[2018-06-28] MEDS: PIPERACILLIN/TAZOB 4.5 GM 4.5 GM in DEXTROSE 5%-WATER 100 ML IVPB SCH ×3 (02:35→17:01)
[2018-06-28] MEDS: HEPARIN NA (PORCINE) 5,000 UNITS/ML 1ML VIAL SQ SCH (05:23)
[2018-06-28] MEDS: INSULIN SLIDING SCALE (NOVOLOG) 1 VIAL SQ SCH ×4 (06:00→23:29)
[2018-06-28 07:46] LABS: BASO % 0.1 % (0-2.0); HEMATOCRIT 35.2 % (35.4-49); HEMOGLOBIN 11.9 GM/dL (11.7-16.9); MCH 29.3 pg (25.7-33.7); MCHC 33.7 g/dl (32.0-35.9); MEAN PLT VOLUME 9.9 fl (7.5-11.1); MONO % 7.4 % (3.8-10.2); NEUT % 90.5 % (42.8-82.8); PLATELET COUNT 156 K/MM3 (134-434); RBC 4.05 M/mm3 (4.00-5.60); RDW 16.1 % (11.9-15.9); WHITE BLOOD COUNT 17.5 K/mm3 (4.0-10.0)
[2018-06-28 08:00] LABS: ALBUMIN 2.8 g/dl (3.4-5.0); ALK PHOS 348 U/L (45-117); ANION GAP 13 MMOL/L (8-16); BILIRUBIN,TOTAL 4.7 mg/dL (0.2-1); BLOOD UREA NITROGEN 43 mg/dL (7-18); CALCIUM 8.7 mg/dL (8.5-10.1); CHLORIDE 100 mmol/L (98-107); CO2 24 mmol/L (21-32); CREATININE 1.8 mg/dL (0.55-1.3); GLUCOSE,RANDOM 102 mg/dL (74-106); PHOSPHOROUS 3.6 mg/dL (2.5-4.9); POTASSIUM 3.6 mmol/L (3.5-5.1); SGOT/AST 1561 U/L (15-37); SGPT/ALT 1130 U/L (13-61); SODIUM 137 mmol/L (136-145); TOT PROT 6.2 g/dl (6.4-8.2)
[2018-06-28 08:20] LABS: BILIRUBIN,DIRECT 3.8 mg/dL (0.0-0.2)
[2018-06-28] MEDS: MORPHINE SULFATE 2 MG/ML VIAL IVPUSH PRN (09:01)
--- NOTE | 2018-06-28 10:09 | PN ---
Progress Note, Physician History of Present Illness: Epigastric pain improving, denies nausea or emesis, cp or dyspnea, afebrile. - Current Medication List Current Medications: Active Medications Finasteride (Proscar -) 5 mg PO DAILY [facility] Last Admin: 06/27/18 14:00 Dose: 5 mg Heparin Sodium (Porcine) (Heparin -) 5,000 unit SQ TID [facility] Last Admin: 06/28/18 05:23 Dose: 5,000 unit Lactated Ringer's (Lactated Ringers Solution) 1,000 ml in 1,000 mls @ 125 mls/ hr IV ASDIR [facility] Last Admin: 06/27/18 09:51 Dose: 125 mls/hr Piperacillin Sod/Tazobactam (Sod 4.5 gm/ Dextrose) 100 mls @ 200 mls/hr IVPB Q8H-IV [facility]; Protocol Last Admin: 06/28/18 09:47 Dose: 200 mls/hr Metronidazole (Flagyl 500mg Premixed Ivpb -) 500 mg in 100 mls @ 100 mls/hr IVPB Q8H-IV CEASAR Insulin Aspart (Novolog Vial Sliding Scale -) 1 vial SQ ACHS [facility]; Protocol Last Admin: 06/28/18 06:00 Dose: Not Given Metoprolol Tartrate (Lopressor -) 25 mg PO BID [facility] Last Admin: 06/27/18 21:45 Dose: 25 mg Morphine Sulfate (Morphine Sulfate) 2 mg IVPUSH Q3H PRN PRN Reason: PAIN LEVEL 7 - 10 Last Admin: 06/28/18 09:01 Dose: 2 mg - Objective Vital Signs: Vital Signs Temperature 98.3 F 06/28/18 06:00 Pulse Rate 75 06/28/18 06:00 Respiratory Rate 22 H 06/28/18 06:00 Blood Pressure 110/59 L 06/28/18 06:00 O2 Sat by Pulse Oximetry (%) 96 06/28/18 09:42 Constitutional: Yes: No Distress, Calm Neck: Yes: Supple Cardiovascular: Yes: Tachycardia, Pulse Irregular Respiratory: Yes: Regular, Diminished, On Nasal O2 Gastrointestinal: Yes: Soft, Hypoactive Bowel Sounds, Tenderness, Epigastrium Edema: No Labs: CBC, BMP 06/28/18 06:20 06/28/18 06:20 - ....Imaging EKG: Report Reviewed (Tele: Rapid afib) Problem List - Problems (1) Acute cholecystitis due to biliary calculus Code(s): K80.00 - CALCULUS OF GALLBLADDER W ACUTE CHOLECYST W/O OBSTRUCTION (2) Atrial fibrillation with RVR Code(s): I48.91 - UNSPECIFIED ATRIAL FIBRILLATION (3) Pancreatitis Code(s): K85.90 - ACUTE PANCREATITIS WITHOUT NECROSIS OR INFECTION, UNSP Qualifiers: Chronicity: acute Pancreatitis type: unspecified pancreatitis type Acute pancreatitis complication: unspecified Qualified Code(s): K85.90 - Acute pancreatitis without necrosis or infection, unspecified (4) CKD (chronic kidney disease) Code(s): N18.9 - CHRONIC KIDNEY DISEASE, UNSPECIFIED (5) Demand ischemia Code(s): I24.8 - OTHER FORMS OF ACUTE ISCHEMIC HEART DISEASE (6) Hyperlipidemia Code(s): E78.5 - HYPERLIPIDEMIA, UNSPECIFIED Qualifiers: Hyperlipidemia type: pure hypercholesterolemia Qualified Code(s): E78.00 - Pure hypercholesterolemia, unspecified; E78.0 - Pure hypercholesterolemia Assessment/Plan 1. Clinical presentation consistent with acute calculus cholecystitis with pancreatits 2. CAD coronary artery calcification with demand ischemia 3. Diastolic LV dysfunction with clinical class 0 NYHA classification LV failure 4. Persistent atrial fibrillation with RVR [id number] score of 5-6 on no A/C unknown reason on ASA and Plavix 5. HTN 6. DM 7. Hypercholesterolemia 8. Chronic kidney disease PLAN: 1. Increase B-Blockers as hemodynamics tolerate, IV Cardizem as needed for rate- control trend trops, LFTs and lipase, f/u echo results 2. Resume Lisinopril therapy once renal function at baseline with caution and close monitoring of renal function 3. Withhold HCTZ and statin therapy 4. Withhold ASA and Plavix therapy pending intervention (withhold at least for 5 -7 days), ideally patient should be A/C considering the above noted [id number] score of 5-6 once post-procedure hemostasis achieved 5. If intervention is planned there are no absolute contraindication in proceeding with planned intervention since there is no clinical evidence of ACS and/or de-compensated CHF and/or malignant ventricular arrhythmia, await MRCP-> ERCP 6. SQ heparin Supervisor Channel Process Dr. Paulina Myers CD/[place]
[2018-06-28] MEDS ORDERED: dilTIAZem HCL 50 MG/10 ML - 10 ML VIAL IVPUSH PRN (10:36)
[2018-06-28] MEDS: METOPROLOL TARTRATE 25 MG TABLET (FP) PO SCH ×4 (10:55→21:43)
[2018-06-28] MEDS ORDERED: ETOMIDATE 20 MG/10 ML AMPUL IVPUSH ONE (11:44)
[2018-06-28] MEDS ORDERED: GLUCAGON 1 MG KIT ONE (11:45)
--- NOTE | 2018-06-28 12:48 | PN ---
Progress Note (short form) - Note Progress Note: GI Procedure NOte: Please see scanned ERCP report. Stones extracted but stent placed given post extraction swelling and bleeding at the sphincterotomy. Discussed with Dr Hill.
--- NOTE | 2018-06-28 13:52 | PN ---
Physical Exam: SUBJECTIVE: Patient seen and examined at bedside. Rapid response called overnight. OBJECTIVE: Vital Signs Period Temp Pulse Resp BP Sys/Murray Pulse Ox Last 24 Hr 97.6 F-102.3 F 75-123 18-22 105-155/56-101 90-99 GENERAL: AAOx3, NAD, pleasant gentleman HEAD: NC/AT EYES: Sclera Jaundice. EOMI EARS, NOSE, THROAT: MMM. NECK: No JVD appreciated LUNGS: Dec BS @ Bases HEART: Irregularly irregular ns1s2 ABDOMEN: Obese, Tympanic. Nontender. Dilated periumbilical veins. No fluid wave MUSCULOSKELETAL: FROM throughout UPPER EXTREMITIES: No CCE. Ring finger Right hand amputated LOWER EXTREMITIES: No CCE. Onychomycosis PSYCHIATRIC: Cooperative. Good eye contact. Appropriate mood and affect. SKIN: No rashes or lesions appreciated Laboratory Results - last 24 hr 06/27/18 06/27/18 06/27/18 17:00 18:02 21:44 WBC RBC Hgb Hct MCV MCH MCHC RDW Plt Count MPV Absolute Neuts (auto) Neutrophils % Neutrophils % (Manual) Band Neutrophils % Lymphocytes % Lymphocytes % (Manual) Monocytes % Monocytes % (Manual) Eosinophils % Eosinophils % (Manual) Basophils % Basophils % (Manual) Myelocytes % (Man) Promyelocytes % (Man) Blast Cells % (Manual) Nucleated RBC % Metamyelocytes Sodium Potassium Chloride Carbon Dioxide Anion Gap BUN Creatinine Creat Clearance w eGFR POC Glucometer 115 132 Random Glucose Lactic Acid Calcium Phosphorus Magnesium Total Bilirubin Direct Bilirubin AST ALT Alkaline Phosphatase Troponin I 0.12 H Total Protein Albumin 06/27/18 06/27/18 06/27/18 23:20 23:20 23:20 WBC 2.1 L RBC 4.16 Hgb 12.5 Hct 36.5 MCV 87.8 MCH 30.1 MCHC 34.3 RDW 16.2 H Plt Count 170 MPV 9.3 Absolute Neuts (auto) 1.9 Neutrophils % 88.7 H Neutrophils % (Manual) Band Neutrophils % Lymphocytes % 10.1 Lymphocytes % (Manual) Monocytes % 0.8 L D Monocytes % (Manual) Eosinophils % 0.2 Eosinophils % (Manual) Basophils % 0.2 Basophils % (Manual) Myelocytes % (Man) Promyelocytes % (Man) Blast Cells % (Manual) Nucleated RBC % 0 Metamyelocytes Sodium 134 L Potassium 3.7 Chloride 97 L Carbon Dioxide 26 Anion Gap 11 BUN 36 H Creatinine 1.5 H Creat Clearance w eGFR 44.17 POC Glucometer Random Glucose 137 H Lactic Acid 3.7 H* Calcium 8.6 Phosphorus Magnesium Total Bilirubin 4.5 H Direct Bilirubin AST 684 H ALT 550 H Alkaline Phosphatase 359 H Troponin I Total Protein 6.5 Albumin 2.8 L 06/27/18 06/28/18 06/28/18 23:38 02:40 05:27 WBC RBC Hgb Hct MCV MCH MCHC RDW Plt Count MPV Absolute Neuts (auto) Neutrophils % Neutrophils % (Manual) Band Neutrophils % Lymphocytes % Lymphocytes % (Manual) Monocytes % Monocytes % (Manual) Eosinophils % Eosinophils % (Manual) Basophils % Basophils % (Manual) Myelocytes % (Man) Promyelocytes % (Man) Blast Cells % (Manual) Nucleated RBC % Metamyelocytes Sodium Potassium Chloride Carbon Dioxide Anion Gap BUN Creatinine Creat Clearance w eGFR POC Glucometer 110 Random Glucose Lactic Acid 2.8 H* Calcium Phosphorus Magnesium Total Bilirubin Direct Bilirubin AST ALT Alkaline Phosphatase Troponin I 0.22 H Total Protein Albumin 06/28/18 06/28/18 06/28/18 06:20 06:20 06:20 WBC 17.5 H RBC 4.05 Hgb 11.9 Hct 35.2 L MCV 87.0 MCH 29.3 MCHC 33.7 RDW 16.1 H Plt Count 156 MPV 9.9 Absolute Neuts (auto) 15.8 H Neutrophils % 90.5 H Neutrophils % (Manual) 76.0 Band Neutrophils % 12.0 Lymphocytes % 2.0 L D Lymphocytes % (Manual) 1.0 L Monocytes % 7.4 D Monocytes % (Manual) 7 Eosinophils % 0.0 D Eosinophils % (Manual) 0.0 Basophils % 0.1 Basophils % (Manual) 0.0 Myelocytes % (Man) 1 Promyelocytes % (Man) 0 Blast Cells % (Manual) 0 Nucleated RBC % 0 Metamyelocytes 2 Sodium 137 Potassium 3.6 Chloride 100 Carbon Dioxide 24 Anion Gap 13 BUN 43 H Creatinine 1.8 H Creat Clearance w eGFR 35.79 POC Glucometer Random Glucose 102 Lactic Acid Calcium 8.7 Phosphorus 3.6 Magnesium 2.0 Total Bilirubin 4.7 H Direct Bilirubin 3.8 H AST 1561 H ALT 1130 H Alkaline Phosphatase 348 H Troponin I 1.24 H* Total Protein 6.2 L Albumin 2.8 L 06/28/18 06:35 WBC RBC Hgb Hct MCV MCH MCHC RDW Plt Count MPV Absolute Neuts (auto) Neutrophils % Neutrophils % (Manual) Band Neutrophils % Lymphocytes % Lymphocytes % (Manual) Monocytes % Monocytes % (Manual) Eosinophils % Eosinophils % (Manual) Basophils % Basophils % (Manual) Myelocytes % (Man) Promyelocytes % (Man) Blast Cells % (Manual) Nucleated RBC % Metamyelocytes Sodium Potassium Chloride Carbon Dioxide Anion Gap BUN Creatinine Creat Clearance w eGFR POC Glucometer Random Glucose Lactic Acid Calcium Phosphorus Magnesium Total Bilirubin Direct Bilirubin Cancelled AST ALT Alkaline Phosphatase Troponin I Total Protein Albumin Active Medications Generic Name Dose Route Start Last Admin Trade Name Freq PRN Reason Stop Dose Admin Diltiazem HCl 10 mg 06/28/18 10:36 Cardizem Injection - IVPUSH Q4H PRN TACHYCARDIA Finasteride 5 mg 06/27/18 12:45 06/27/18 14:00 Proscar - PO 5 mg DAILY CEASAR Administration Lactated Ringer's 1,000 ml in 1,000 mls @ 125 mls/hr 06/27/18 09:45 06/27/18 09:51 Lactated Ringers Solution IV 125 mls/hr ASDIR CEASAR Administration Piperacillin Sod/Tazobactam 100 mls @ 200 mls/hr 06/28/18 00:45 06/28/18 09: 47 Sod 4.5 gm/ Dextrose IVPB 200 mls/hr Q8H-IV CEASAR Administration Protocol Metronidazole 500 mg in 100 mls @ 100 mls/hr 06/28/18 10:00 Flagyl 500mg Premixed Ivpb - IVPB Q8H-IV CEASAR Insulin Aspart 1 vial 06/27/18 11:00 06/28/18 06:00 Novolog Vial Sliding Scale - SQ Not Given ACHS CEAS[facility] Protocol Metoprolol Tartrate 25 mg 06/28/18 10:45 06/28/18 12:34 Lopressor - PO Not Given TID CEASAR Morphine Sulfate 2 mg 06/27/18 17:50 06/28/18 09:01 Morphine Sulfate IVPUSH 2 mg Q3H PRN Administration PAIN LEVEL 7 - 10 ASSESSMENT/PLAN: Pt is an 88 y/o gentleman ([place] ) with a significant past medical history of HLD, BPH, HTN, IDDM, A-fib (on Plavix), Lower extremity claudication , and SUGAR on CPAP who presented [facility] due to chest pain and nausea. #Gallstone Pancreatitis: CTAP--> Acute calculus cholecystitis. 3 mm CBD calculus seen at level of ampulla. CBD dilated at 0.8 cm. -Full liquid diet -S/P ERCP w/ Dr Smalls. Stent placement, sphincterotomy/papillotomy. Tw stones removed from CBD successfully. -Surgery Consult- Dr Hill #HLD Will hold Statin in light of Transaminitis #BPH Continue Proscar 5 mg daily #IDDM Will withhold pt's home dose Lantus Will start ISS #A-FIB A-fib with HR 108, Absent CARLOS MANUEL, STD. + L ant fasc. block. Absent Q waves. Nml R wave progression. -Not on any AC for unnown reason -[id number]--> 5-6 -Plavix/ASA on hold in light of anticipated surgery -Lopressor titrated up to 25 Q8H. -Diltiazem IVPUSH Q4H PRN for tachycardia > 120 BPM #HTN Will resume Lisinopril when Renal function WNL Withold Thiazides as known to cause pancreatitis. #SUGAR Continue CPAP #FEN No Fluids Monitor electrolytes Full Liquid diet #DVT ppx: Hep SQ TID #Dispo Tele Visit type - Emergency Visit Emergency Visit: Yes ED Registration Date: 06/27/18 Care time: The patient presented to the Emergency Department on the above date and was hospitalized for further evaluation of their emergent condition. - New Patient This patient is new to me today: No - Critical Care Critical Care patient: No - Discharge Referral Referred to [facility] No
--- NOTE | 2018-06-28 14:38 | PN ---
Teaching Attending Note Name of Resident: Jarret Pereira ATTENDING PHYSICIAN STATEMENT I saw and evaluated the patient. I reviewed the resident's note and discussed the case with the resident. I agree with the resident's findings and plan as documented. SUBJECTIVE: Patient is comfortable s/p ERCP today , feels better. OBJECTIVE: Vital Signs Temperature 98.4 F 06/28/18 12:44 Pulse Rate 86 06/28/18 13:47 Respiratory Rate 20 06/28/18 13:47 Blood Pressure 140/60 06/28/18 13:47 O2 Sat by Pulse Oximetry (%) 97 06/28/18 13:47 GENERAL: AAOx3, NAD, very nice gentleman HEAD: NC/AT EYES: Sclera Jaundice. EOMI EARS, NOSE, THROAT: Ears normal, oropharynx clear . no exudates. MMM. NECK: No JVD , supple. LUNGS: decreased BS @ Bases bl. HEART:Irregularly irregular, rate controlled ABDOMEN: soft, large abdomen, NT, positive for BS. EXTREMITIES: No CCE. Ring finger Right hand amputated PSYCHIATRIC: Cooperative. Good eye contact. Appropriate mood and affect. SKIN: No rashes or lesions appreciated CBCD WBC 17.5 K/mm3 (4.0-10.0) H 06/28/18 06:20 RBC 4.05 M/mm3 (4.00-5.60) 06/28/18 06:20 Hgb 11.9 GM/dL (11.7-16.9) 06/28/18 06:20 Hct 35.2 % (35.4-49) L 06/28/18 06:20 MCV 87.0 fl (80-96) 06/28/18 06:20 MCHC 33.7 g/dl (32.0-35.9) 06/28/18 06:20 RDW 16.1 % (11.9-15.9) H 06/28/18 06:20 Plt Count 156 K/MM3 (134-434) 06/28/18 06:20 MPV 9.9 fl (7.5-11.1) 06/28/18 06:20 CMP Sodium 137 mmol/L (136-145) 06/28/18 06:20 Potassium 3.6 mmol/L (3.5-5.1) 06/28/18 06:20 Chloride 100 mmol/L (98-107) 06/28/18 06:20 Carbon Dioxide 24 mmol/L (21-32) 06/28/18 06:20 Anion Gap 13 MMOL/L (8-16) 06/28/18 06:20 BUN 43 mg/dL (7-18) H 06/28/18 06:20 Creatinine 1.8 mg/dL (0.55-1.3) H 06/28/18 06:20 Creat Clearance w eGFR 35.79 (>60) 06/28/18 06:20 Random Glucose 102 mg/dL (74-106) 06/28/18 06:20 Calcium 8.7 mg/dL (8.5-10.1) 06/28/18 06:20 Total Bilirubin 4.7 mg/dL (0.2-1) H 06/28/18 06:20 AST 1561 U/L (15-37) H 06/28/18 06:20 ALT 1130 U/L (13-61) H 06/28/18 06:20 Alkaline Phosphatase 348 U/L (45-117) H 06/28/18 06:20 Total Protein 6.2 g/dl (6.4-8.2) L 06/28/18 06:20 Albumin 2.8 g/dl (3.4-5.0) L 06/28/18 06:20 CARDIAC ENZYMES Creatine Kinase 98 U/L (26-308) 06/27/18 04:45 Troponin I 1.24 ng/ml (0.00-0.05) H* 06/28/18 06:20 Current Medications Generic Name Dose Route Start Last Admin Trade Name Lioq PRN Reason Stop Dose Admin Diltiazem HCl 10 mg 06/28/18 10:36 Cardizem Injection - IVPUSH Q4H PRN TACHYCARDIA Finasteride 5 mg 06/27/18 12:45 06/28/18 15:11 Proscar - PO 5 mg DAILY CEASAR Administration Piperacillin Sod/Tazobactam 100 mls @ 200 mls/hr 06/28/18 00:45 06/28/18 17: 01 Sod 4.5 gm/ Dextrose IVPB 200 mls/hr Q8H-IV CEASAR Administration Protocol Metronidazole 500 mg in 100 mls @ 100 mls/hr 06/28/18 10:00 06/28/18 11:00 Flagyl 500mg Premixed Ivpb - IVPB Not Given Q8H-IV CEASAR Insulin Aspart 1 vial 06/27/18 11:00 06/28/18 11:00 Novolog Vial Sliding Scale - SQ Not Given ACHS [facility] Protocol Metoprolol Tartrate 25 mg 06/28/18 10:45 06/28/18 14:55 Lopressor - PO 25 mg TID CEASAR Administration Morphine Sulfate 2 mg 06/27/18 17:50 06/28/18 09:01 Morphine Sulfate IVPUSH 2 mg Q3H PRN Administration PAIN LEVEL 7 - 10 Home Medications Medication Instructions Recorded Aspirin [ASA -] 81 mg PO DAILY 03/30/15 Clopidogrel Bisulfate [Plavix -] 75 mg PO DAILY 03/30/15 Finasteride [Proscar] 5 mg PO DAILY 03/30/15 Glipizide [Glipizide ER] 5 mg PO DAILY 03/30/15 Hydrochlorothiazide 25 mg PO DAILY 03/30/15 Lisinopril [Prinivil -] 40 mg PO DAILY 03/30/15 Metformin HCl [Glucophage] 1,000 mg PO BID 03/30/15 Pioglitazone HCl [Actos] 30 mg PO DAILY 03/30/15 Simvastatin [Zocor -] 20 mg PO HS 03/30/15 ASSESSMENT AND PLAN: Patient is a 88yo male presented with diffuse midepigastric pain started after eating [place] food [employer] today. This is the second episode, the 1st episode was last year and was admitted [facility], pain resolved afterward. No fever or chills , no shortness of breath. # POD #0 s/p ERCP with stent placement and retraction of 2 stones. repeat ERCP in 3 months to remove the stent , polyp and the residual stones.by # Acute calculus cholecystitis radiating to the back with nausea and vomiting; ID/GI/Sx is on the case, IV antibiotics Zosyn and flagyl s/p Vancomycin # Acute gallstone Pancreatitis: IVF continue, repeat labs in am, full liquid diet, will repeat the level in am # Acute diastolic CHF: continue to monitor # ARF on CKD:with worsening renal function, IVF continue , Hold Lisinopril for now once renal fcn improves will resume aceI, continue to hold HCtz as well #Acute hyponatremia: improved post IVF , continue to hold HCTZ #Acute Transaminits, will trend, hold Statins for now. will monitor, will repeat the level # Hx of Afib [id number] score of 5-6 on no A/C : unknown reason why the patient is on ASA and Plavix, needs to hold for 48hrs prior to restating. 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 Paulina Myers [facility]. will hold AC for 48 hrs.NO aspirin and Plavix, removal of stent in 3months, repeat ERCP in 3 months for removal of the stent. 06/28/2018
[2018-06-28] MEDS: FINASTERIDE 5 MG TABLET (FP) PO SCH (15:11)
--- NOTE | 2018-06-28 16:14 | EKG ---
Test Reason : Blood Pressure : / mmHG Vent. Rate : 112 BPM Atrial Rate : 101 BPM P-R Int : 000 ms QRS Dur : 104 ms QT Int : 336 ms P-R-T Axes : 000 -52 065 degrees QTc Int : 458 ms ATRIAL FIBRILLATION WITH RAPID VENTRICULAR RESPONSE LEFT AXIS DEVIATION LOW VOLTAGE QRS CANNOT RULE OUT ANTERIOR INFARCT , AGE UNDETERMINED ABNORMAL ECG NO PREVIOUS ECGS AVAILABLE Confirmed by MICHELLE GOLDSMITH MD ([id number]) on 06/28/2018 4:14:14 PM Referred By: Confirmed By:MICHELLE GOLDSMITH MD
--- NOTE | 2018-06-28 16:32 | PN ---
Progress Note (short form) - Note Progress Note: had severe rigors and chills overnight d/w hospitlist service overnight, flagyl added cultures sent s/p ercp this am abdominal pain has resolved, no further chills or fevers he had stones removed and a stent placed, s/p sphincterotomy Vital Signs Period Temp Pulse Resp BP Sys/Murray Pulse Ox Last 24 Hr 97.6 F-102.3 F 75-123 18-22 105-155/56-101 90-99 cor-rrr lungs clear abd soft,nt ext no edema CBC, BMP 06/28/18 06:20 06/28/18 06:20 Laboratory Tests 06/27/18 06/28/18 06/28/18 23:20 06:20 06:20 Total Bilirubin 4.5 H 4.7 H Direct Bilirubin 3.8 H AST 684 H 1561 H ALT 550 H 1130 H Alkaline Phosphatase 359 H 348 H cultures pending Current Medications Diltiazem HCl (Cardizem Injection -) 10 mg IVPUSH Q4H PRN PRN Reason: TACHYCARDIA Finasteride (Proscar -) 5 mg PO DAILY [facility] Last Admin: 06/28/18 15:11 Dose: 5 mg Piperacillin Sod/Tazobactam (Sod 4.5 gm/ Dextrose) 100 mls @ 200 mls/hr IVPB Q8H-IV [facility]; Protocol Last Admin: 06/28/18 09:47 Dose: 200 mls/hr Metronidazole (Flagyl 500mg Premixed Ivpb -) 500 mg in 100 mls @ 100 mls/hr IVPB Q8H-IV CEASAR Last Admin: 06/28/18 11:00 Dose: Not Given Insulin Aspart (Novolog Vial Sliding Scale -) 1 vial SQ ACHS [facility]; Protocol Last Admin: 06/28/18 11:00 Dose: Not Given Metoprolol Tartrate (Lopressor -) 25 mg PO TID [facility] Last Admin: 06/28/18 14:55 Dose: 25 mg Morphine Sulfate (Morphine Sulfate) 2 mg IVPUSH Q3H PRN PRN Reason: PAIN LEVEL 7 - 10 Last Admin: 06/28/18 09:01 Dose: 2 mg imp/reccd s//p ercp-with sphinctrotomay, stone extraction and stent placement biliary sepsis cholycystitis/choledocholithiasis gallstone pancreatitis history afib danielle blood cultures pending continue zosyn/flagyl f/u labs in am Problem List - Problems (1) Biliary sepsis Code(s): K83.09 - OTHER CHOLANGITIS (2) Acute cholecystitis due to biliary calculus Code(s): K80.00 - CALCULUS OF GALLBLADDER W ACUTE CHOLECYST W/O OBSTRUCTION (3) Choledocholithiasis with acute cholecystitis Code(s): K80.42 - CALCULUS OF BILE DUCT W ACUTE CHOLECYSTITIS W/O OBSTRUCTION (4) CKD (chronic kidney disease) Code(s): N18.9 - CHRONIC KIDNEY DISEASE, UNSPECIFIED
--- NOTE | 2018-06-28 18:56 | CONSULT ---
Consult Consult Specialty:: Surgery Reason for Consultation:: cholecystitis and cholangitis - History of Present Illness Chief Complaint: Chest pain, abnormal LFT'S and sepsis History of Present Illness: Pt is an 88 y/o gentleman ([place]) with a significant past medical history of HLD, BPH, HTN, IDDM, A-fib (on Plavix), Lower extremity claudication , and SUGAR on CPAP who presented to [facility] due to chest pain and nausea. Pt endorses that around 2 am this morning he was lying in bed when he suddenly experienced a tightness in his chest. Pt states that this felt like a "seatbelt " across his chest. Pt also endorses feeling short of breath for the past 1 week a well. Pt endorses he had [place] food that night which was greasy. Pt states that he experienced a similar episode in November while he was in [place]. Denies heavy alcohol use. Denies shortness of breath, chest pain, nausea/ vomiting. - History Source History Provided By: Family Member, Significant Other () - Past Medical History Cardio/Vascular: Yes: AFIB, Other (PVD) Endocrine: Yes: Other (Obesity) - Alcohol/Substance Use Hx Alcohol Use: No - Smoking History Smoking history: Never smoked Have you smoked in the past 12 months: No Home Medications - Allergies Allergies/Adverse Reactions: Allergies Allergy/AdvReac Type Severity Reaction Status Date / Time No Known Allergies Allergy Verified 06/27/18 04:04 - Home Medications Home Medications: Ambulatory Orders Aspirin [ASA -] 81 mg PO DAILY 03/30/15 Clopidogrel Bisulfate [Plavix -] 75 mg PO DAILY 03/30/15 Finasteride [Proscar] 5 mg PO DAILY 03/30/15 Glipizide [Glipizide ER] 5 mg PO DAILY 03/30/15 Hydrochlorothiazide 25 mg PO DAILY 03/30/15 Lisinopril [Prinivil -] 40 mg PO DAILY 03/30/15 Metformin HCl [Glucophage] 1,000 mg PO BID 03/30/15 Pioglitazone HCl [Actos] 30 mg PO DAILY 03/30/15 Simvastatin [Zocor -] 20 mg PO HS 03/30/15 Review of Systems - Review of Systems Eyes: reports: No Symptoms Neck: reports: No Symptoms Cardiovascular: reports: Chest Pain Respiratory: reports: No Symptoms Gastrointestinal: reports: Abdominal Pain Integumentary: reports: No Symptoms Neurological: reports: No Symptoms Physical Exam Vital Signs: Vital Signs Temperature 98.8 F 06/28/18 14:00 Pulse Rate 86 06/28/18 14:00 Respiratory Rate 18 06/28/18 14:00 Blood Pressure 117/56 L 06/28/18 14:00 O2 Sat by Pulse Oximetry (%) 97 06/28/18 13:47 Constitutional: Yes: Well Nourished Eyes: Yes: Conjunctiva Clear HENT: Yes: Normocephalic Neck: Yes: Supple Cardiovascular: Yes: Pulse Irregular Respiratory: Yes: CTA Bilaterally Gastrointestinal: Yes: Soft, Abdomen, Obese, Tenderness (negative) ...Rectal Exam: Yes: Deferred Neurological: Yes: Alert, Oriented Labs: CBC, BMP 06/28/18 06:20 06/28/18 06:20 Imaging - Results Cat Scan: Report Reviewed, Image Reviewed Ultrasound: Report Reviewed, Image Reviewed Problem List - Problems (1) Biliary sepsis Assessment/Plan: s/p ERCP removal of choledocholithiasis and biliary stenting Continue IV abx f/u LFT'S and amylase/lipase eventual cholecystectomy, timing to be determined Code(s): K83.09 - OTHER CHOLANGITIS
[2018-06-29] MEDS ORDERED: PIPERACILLIN/TAZOBACTAM 4.5 GM VIAL IVPB ONE ×3 (00:52→17:00)
[2018-06-29] MEDS ORDERED: DEXTROSE 5%-WATER 100 ML IVPB ONE ×3 (00:52→17:01)
[2018-06-29] MEDS: PIPERACILLIN/TAZOB 4.5 GM 4.5 GM in DEXTROSE 5%-WATER 100 ML IVPB SCH ×3 (01:01→17:22)
[2018-06-29] MEDS ORDERED: guaiFENesin 200 MG/10 ML 10 ML UNIT-DOSE CUPS PO ONE (01:25)
[2018-06-29 02:14] LABS: URINE APPEARANCE CLOUDY; URINE BILIRUBIN NEGATIVE (<2.0 mg/dL); URINE COLOR AMBER; URINE GLUCOSE (UA) 1+ (NEGATIVE); URINE KETONE NEGATIVE (NEGATIVE); URINE LEUK ESTERASE NEGATIVE (NEGATIVE); URINE NITRITE NEGATIVE (NEGATIVE); URINE PROTEIN 2+ (NEGATIVE)
[2018-06-29 02:21] LABS: URINE BACTERIA RARE /hpf (NONE SEEN); URINE MUCUS RARE
[2018-06-29] MEDS: METOPROLOL TARTRATE 25 MG TABLET (FP) PO SCH ×3 (05:45→22:08)
[2018-06-29] MEDS: INSULIN SLIDING SCALE (NOVOLOG) 1 VIAL SQ SCH ×4 (06:09→22:08)
[2018-06-29 07:09] LABS: INR 1.44 (0.83-1.09)
[2018-06-29 07:15] LABS: BASO % 0.1 % (0-2.0); EOS % 1.4 % (0-4.5); HEMATOCRIT 31.7 % (35.4-49); LYMPH % 4.1 % (8-40); MCH 29.9 pg (25.7-33.7); MCHC 34.6 g/dl (32.0-35.9); MEAN CELL VOLUME 86.4 fl (80-96); MEAN PLT VOLUME 9.7 fl (7.5-11.1); MONO % 6.6 % (3.8-10.2); NEUT % 87.8 % (42.8-82.8); PLATELET COUNT 131 K/MM3 (134-434); RBC 3.67 M/mm3 (4.00-5.60); RDW 15.9 % (11.9-15.9); WHITE BLOOD COUNT 10.9 K/mm3 (4.0-10.0)
--- NOTE | 2018-06-29 08:26 | PN ---
Teaching Attending Note Name of Resident: Jarret Pereira ATTENDING PHYSICIAN STATEMENT I saw and evaluated the patient. I reviewed the resident's note and discussed the case with the resident. I agree with the resident's findings and plan as documented. SUBJECTIVE: Patient is feeling better , no further pain, is comfortable. OBJECTIVE: Vital Signs Temperature 97.6 F 06/29/18 06:00 Pulse Rate 78 06/29/18 06:00 Respiratory Rate 20 06/29/18 06:00 Blood Pressure 104/60 06/29/18 06:00 O2 Sat by Pulse Oximetry (%) 94 L 06/28/18 21:00 GENERAL: AAOx3, NAD, very nice gentleman HEAD: NC/AT EYES: Sclera Jaundice. EOMI EARS, NOSE, THROAT: Ears normal, oropharynx clear . no exudates. MMM. NECK: No JVD , supple. LUNGS: decreased BS @ Bases bl. HEART:Irregularly irregular, rate controlled ABDOMEN: soft, large abdomen, NT, positive for BS. EXTREMITIES: No CCE. Ring finger Right hand amputated PSYCHIATRIC: Cooperative. Good eye contact. Appropriate mood and affect. SKIN: No rashes or lesions appreciated CBCD WBC 10.9 K/mm3 (4.0-10.0) H 06/29/18 06:30 RBC 3.67 M/mm3 (4.00-5.60) L 06/29/18 06:30 Hgb 11.0 GM/dL (11.7-16.9) L 06/29/18 06:30 Hct 31.7 % (35.4-49) L 06/29/18 06:30 MCV 86.4 fl (80-96) 06/29/18 06:30 MCHC 34.6 g/dl (32.0-35.9) 06/29/18 06:30 RDW 15.9 % (11.9-15.9) 06/29/18 06:30 Plt Count 131 K/MM3 (134-434) L 06/29/18 06:30 MPV 9.7 fl (7.5-11.1) 06/29/18 06:30 CARDIAC ENZYMES Creatine Kinase 98 U/L (26-308) 06/27/18 04:45 Troponin I 1.24 ng/ml (0.00-0.05) H* 06/28/18 06:20 Current Medications Generic Name Dose Route Start Last Admin Trade Name Freq PRN Reason Stop Dose Admin Diltiazem HCl 10 mg 06/28/18 10:36 Cardizem Injection - IVPUSH Q4H PRN TACHYCARDIA Finasteride 5 mg 06/27/18 12:45 06/28/18 15:11 Proscar - PO 5 mg DAILY CEASAR Administration Piperacillin Sod/Tazobactam 100 mls @ 200 mls/hr 06/28/18 00:45 06/29/18 01: 01 Sod 4.5 gm/ Dextrose IVPB 200 mls/hr Q8H-IV CEASAR Administration Protocol Metronidazole 500 mg in 100 mls @ 100 mls/hr 06/28/18 10:00 06/29/18 01:36 Flagyl 500mg Premixed Ivpb - IVPB 100 mls/hr Q8H-IV CEASAR Administration Insulin Aspart 1 vial 06/27/18 11:00 06/29/18 06:09 Novolog Vial Sliding Scale - SQ Not Given ACHS CEASAR Protocol Metoprolol Tartrate 25 mg 06/28/18 10:45 06/29/18 05:45 Lopressor - PO 25 mg TID CEASAR Administration Morphine Sulfate 2 mg 06/27/18 17:50 06/28/18 09:01 Morphine Sulfate IVPUSH 2 mg Q3H PRN Administration PAIN LEVEL 7 - 10 Home Medications Medication Instructions Recorded Aspirin [ASA -] 81 mg PO DAILY 03/30/15 Clopidogrel Bisulfate [Plavix -] 75 mg PO DAILY 03/30/15 Finasteride [Proscar] 5 mg PO DAILY 03/30/15 Glipizide [Glipizide ER] 5 mg PO DAILY 03/30/15 Hydrochlorothiazide 25 mg PO DAILY 03/30/15 Lisinopril [Prinivil -] 40 mg PO DAILY 03/30/15 Metformin HCl [Glucophage] 1,000 mg PO BID 03/30/15 Pioglitazone HCl [Actos] 30 mg PO DAILY 03/30/15 Simvastatin [Zocor -] 20 mg PO HS 03/30/15 Microbiology 06/27/18 17:00 Blood - Peripheral Venous Blood Culture - Preliminary NO GROWTH OBTAINED AFTER 24 HOURS, INCUBATION TO CONTINUE FOR 4 DAYS. 06/27/18 17:00 Blood - Peripheral Venous Blood Culture - Preliminary NO GROWTH OBTAINED AFTER 24 HOURS, INCUBATION TO CONTINUE FOR 4 DAYS. Urine Test Results Urine Color [place] 06/29/18 01:45 Urine Appearance Cloudy 06/29/18 01:45 Urine pH 5.0 (5.0-8.0) 06/29/18 01:45 Ur Specific [place] 1.020 (1.010-1.035) 06/29/18 01:45 Urine Protein 2+ (NEGATIVE) H 06/29/18 01:45 Urine Glucose (UA) 1+ (NEGATIVE) H 06/29/18 01:45 Urine Ketones Negative (NEGATIVE) 06/29/18 01:45 Urine Blood 1+ (NEGATIVE) H 06/29/18 01:45 Urine Nitrite Negative (NEGATIVE) 06/29/18 01:45 Urine Bilirubin Negative (<2.0 mg/dL) 06/29/18 01:45 Ur Leukocyte Esterase Negative (NEGATIVE) 06/29/18 01:45 Urine Bacteria Rare /hpf (NONE SEEN) 06/29/18 01:45 Urine Mucus Rare 06/29/18 01:45 Hepatic Panel Total Bilirubin 2.1 mg/dL (0.2-1) H 06/29/18 06:30 Direct Bilirubin 1.8 mg/dL (0.0-0.2) H 06/29/18 06:30 AST 3497 U/L (15-37) H 06/29/18 06:30 ALT 2602 U/L (13-61) H 06/29/18 06:30 Alkaline Phosphatase 239 U/L (45-117) H 06/29/18 06:30 Albumin 2.5 g/dl (3.4-5.0) L 06/29/18 06:30 CMP Sodium 137 mmol/L (136-145) 06/28/18 06:20 Potassium 3.6 mmol/L (3.5-5.1) 06/28/18 06:20 Chloride 100 mmol/L (98-107) 06/28/18 06:20 Carbon Dioxide 24 mmol/L (21-32) 06/28/18 06:20 Anion Gap 13 MMOL/L (8-16) 06/28/18 06:20 BUN 43 mg/dL (7-18) H 06/28/18 06:20 Creatinine 1.8 mg/dL (0.55-1.3) H 06/28/18 06:20 Creat Clearance w eGFR 35.79 (>60) 06/28/18 06:20 Random Glucose 102 mg/dL (74-106) 06/28/18 06:20 Calcium 8.7 mg/dL (8.5-10.1) 06/28/18 06:20 Total Bilirubin 4.7 mg/dL (0.2-1) H 06/28/18 06:20 AST 1561 U/L (15-37) H 06/28/18 06:20 ALT 1130 U/L (13-61) H 06/28/18 06:20 Alkaline Phosphatase 348 U/L (45-117) H 06/28/18 06:20 Total Protein 6.2 g/dl (6.4-8.2) L 06/28/18 06:20 Albumin 2.8 g/dl (3.4-5.0) L 06/28/18 06:20 ASSESSMENT AND PLAN: Patient is a 88yo male presented with diffuse midepigastric pain started after eating slovenian food [employer] today. This is the second episode, the 1st episode was last year and was admitted [facility], pain resolved afterward. No fever or chills , no shortness of breath. # POD #2 s/p ERCP with stent placement and retraction of 2 stones. repeat ERCP in 3 months to remove the stent , polyp and the residual stones.by # s/p Acute calculus cholecystitis radiating to the back with nausea and vomiting;improved ID/GI/Sx is on the case, IV antibiotics Zosyn and flagyl s/p Vancomycin, Possible sx on Thursday by Dr. ANDREW # Acute gallstone Pancreatitis: IVF continue, repeat labs daily , advance to soft diet as per GI # Acute diastolic CHF: continue to monitor # ARF on CKD:with worsening renal function, IVF continue , Hold Lisinopril for now once renal fcn improves will resume aceI, continue to hold HCtz as well Nephro amauri reeves is on the case #Acute hyponatremia: improved post IVF , continue to hold HCTZ #Acute Transaminitis trending up s/p ERCP , will trend, hold Statins for now. will monitor, will repeat the level # Hx of Afib [id number] score of 5-6 on no A/C : patient is on ASA and Plavix due to having lower extremity claudication, patient does not have a stent, needs to hold for 48hrs prior to restating. just check with the surgeon if patient will be operated prior to restarting plavix and aspirin # HX of DM will hold Metformin #Hypercholesterolemia hold statin for now # Morbid Obesity diet explained to the patient. 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 will hold AC for 48 hrs.NO aspirin and Plavix, removal of stent in 3months, repeat ERCP in 3 months for removal of the stent. 06/28/2018 Ordered repeat hepatic panel for this afternoon and for AM along with CPK and hepatitis serologies Surgery following and will determined timing of cholecystectomy
[2018-06-29 08:35] LABS: BILIRUBIN,DIRECT 1.8 mg/dL (0.0-0.2); MAGNESIUM 2.1 mg/dL (1.8-2.4); PHOSPHOROUS 5.1 mg/dL (2.5-4.9)
--- NOTE | 2018-06-29 08:39 | PN ---
Physical Exam: SUBJECTIVE: Patient seen and examined at bedside. Urinary retention overnight. Straight cathed. OBJECTIVE: Vital Signs Period Temp Pulse Resp BP Sys/Murray Pulse Ox Last 24 Hr 97.6 F-99.1 F 74-101 18-22 102-147/55-91 90-99 GENERAL: NAD AAOx3 HEAD: atraumatic/ normocephalic EYES: Sclera Jaundice. EOMI EARS, NOSE, THROAT: MMM. NECK: No JVD appreciated LUNGS: Dec BS @ Bases HEART: Irregularly irregular ns1s2 ABDOMEN: Obese, Tympanic. Nontender. Dilated periumbilical veins. No fluid wave MUSCULOSKELETAL: FROM throughout UPPER EXTREMITIES: No CCE. Ring finger Right hand amputated LOWER EXTREMITIES: No CCE. Onychomycosis PSYCHIATRIC: Cooperative. Good eye contact. Appropriate mood and affect. SKIN: No rashes or lesions appreciated Laboratory Results - last 24 hr 06/28/18 06/28/18 06/28/18 06:20 16:35 21:41 WBC RBC Hgb Hct MCV MCH MCHC RDW Plt Count MPV Absolute Neuts (auto) Neutrophils % Neutrophils % (Manual) 76.0 Band Neutrophils % 12.0 Lymphocytes % Lymphocytes % (Manual) 1.0 L Monocytes % Monocytes % (Manual) 7 Eosinophils % Eosinophils % (Manual) 0.0 Basophils % Basophils % (Manual) 0.0 Myelocytes % (Man) 1 Promyelocytes % (Man) 0 Blast Cells % (Manual) 0 Nucleated RBC % 0 Metamyelocytes 2 PT with INR INR POC Glucometer 154 329 Phosphorus Magnesium Direct Bilirubin C-Reactive Protein Total Amylase Lipase Urine Color Urine Appearance Urine pH Ur Specific [place] Urine Protein Urine Glucose (UA) Urine Ketones Urine Blood Urine Nitrite Urine Bilirubin Urine Urobilinogen Ur Leukocyte Esterase Urine WBC (Auto) Urine RBC (Auto) Urine Bacteria Urine Mucus 06/28/18 06/29/18 06/29/18 22:51 01:45 05:44 WBC RBC Hgb Hct MCV MCH MCHC RDW Plt Count MPV Absolute Neuts (auto) Neutrophils % Neutrophils % (Manual) Band Neutrophils % Lymphocytes % Lymphocytes % (Manual) Monocytes % Monocytes % (Manual) Eosinophils % Eosinophils % (Manual) Basophils % Basophils % (Manual) Myelocytes % (Man) Promyelocytes % (Man) Blast Cells % (Manual) Nucleated RBC % Metamyelocytes PT with INR INR POC Glucometer 321 219 Phosphorus Magnesium Direct Bilirubin C-Reactive Protein Total Amylase Lipase Urine Color [place] Urine Appearance Cloudy Urine pH 5.0 Ur Specific [place] 1.020 Urine Protein 2+ H Urine Glucose (UA) 1+ H Urine Ketones Negative Urine Blood 1+ H Urine Nitrite Negative Urine Bilirubin Negative Urine Urobilinogen 2.0 Ur Leukocyte Esterase Negative Urine WBC (Auto) 8 Urine RBC (Auto) 4 Urine Bacteria Rare Urine Mucus Rare 06/29/18 06/29/18 06/29/18 06:30 06:30 06:30 WBC 10.9 H RBC 3.67 L Hgb 11.0 L Hct 31.7 L MCV 86.4 MCH 29.9 MCHC 34.6 RDW 15.9 Plt Count 131 L MPV 9.7 Absolute Neuts (auto) 9.6 H Neutrophils % 87.8 H Neutrophils % (Manual) Band Neutrophils % Lymphocytes % 4.1 L D Lymphocytes % (Manual) Monocytes % 6.6 Monocytes % (Manual) Eosinophils % 1.4 D Eosinophils % (Manual) Basophils % 0.1 Basophils % (Manual) Myelocytes % (Man) Promyelocytes % (Man) Blast Cells % (Manual) Nucleated RBC % 0 Metamyelocytes PT with INR 17.00 H INR 1.44 H POC Glucometer Phosphorus 5.1 H Magnesium 2.1 Direct Bilirubin 1.8 H C-Reactive Protein 32.7 H Total Amylase 19 L Lipase 147 Urine Color Urine Appearance Urine pH Ur Specific [place] Urine Protein Urine Glucose (UA) Urine Ketones Urine Blood Urine Nitrite Urine Bilirubin Urine Urobilinogen Ur Leukocyte Esterase Urine WBC (Auto) Urine RBC (Auto) Urine Bacteria Urine Mucus Active Medications Generic Name Dose Route Start Last Admin Trade Name Freq PRN Reason Stop Dose Admin Diltiazem HCl 10 mg 06/28/18 10:36 Cardizem Injection - IVPUSH Q4H PRN TACHYCARDIA Finasteride 5 mg 06/27/18 12:45 06/28/18 15:11 Proscar - PO 5 mg DAILY CEASAR Administration Piperacillin Sod/Tazobactam 100 mls @ 200 mls/hr 06/28/18 00:45 06/29/18 01: 01 Sod 4.5 gm/ Dextrose IVPB 200 mls/hr Q8H-IV CEASAR Administration Protocol Metronidazole 500 mg in 100 mls @ 100 mls/hr 06/28/18 10:00 06/29/18 01:36 Flagyl 500mg Premixed Ivpb - IVPB 100 mls/hr Q8H-IV CEASAR Administration Insulin Aspart 1 vial 06/27/18 11:00 06/29/18 06:09 Novolog Vial Sliding Scale - SQ Not Given ACHS [facility] Protocol Metoprolol Tartrate 25 mg 06/28/18 10:45 06/29/18 05:45 Lopressor - PO 25 mg TID CEASAR Administration Morphine Sulfate 2 mg 06/27/18 17:50 06/28/18 09:01 Morphine Sulfate IVPUSH 2 mg Q3H PRN Administration PAIN LEVEL 7 - 10 ASSESSMENT/PLAN: Pt is an 88 y/o gentleman ([employer] ) with a significant past medical history of HLD, BPH, HTN, IDDM, A-fib (on Plavix), Lower extremity claudication , and SUGAR on CPAP who presented to [facility] due to chest pain and nausea. #Gallstone Pancreatitis CTAP--> Acute calculus cholecystitis. 3 mm CBD calculus seen at level of ampulla. CBD dilated at 0.8 cm. -Full liquid diet -S/P ERCP w/ Dr Smalls. Stent placement, sphincterotomy/papillotomy. Two stones removed from CBD successfully. -Surgery Consult- Dr Hill. Will wait until tomorrow to assess need for possible cholecystectomy as pt S/P day #1 ERCP. -On Zosyn and Flagyl day 2 TRUNG Pt's Bun/Cr on admission: 44/1.5. Today 69/2.9 Dr Wilkins on board #HLD Will hold Statin in light of Transaminitis #BPH Continue Proscar 5 mg daily #IDDM Will start Levemir 20 U SQ AM in light of recently elevated BGMs Will start ISS #A-FIB A-fib with HR 108, Absent CARLOS MANUEL, STD. + L ant fasc. block. Absent Q waves. Nml R wave progression. -Not on any AC for unnown reason -[id number]--> 5-6 -Plavix/ASA on hold in light of anticipated surgery -Lopressor titrated up to 25 Q8H. -Diltiazem IVPUSH Q4H PRN for tachycardia > 120 BPM #HTN Will resume Lisinopril when Renal function WNL Withold Thiazides as known to cause pancreatitis. #SUGAR Continue CPAP #FEN No Fluids Monitor electrolytes Full Liquid diet #DVT ppx: Hep SQ TID #Dispo Tele Visit type - Emergency Visit Emergency Visit: Yes ED Registration Date: 06/27/18 Care time: The patient presented to the Emergency Department on the above date and was hospitalized for further evaluation of their emergent condition. - New Patient This patient is new to me today: No - Critical Care Critical Care patient: No - Discharge Referral Referred to [facility] Med P.C.: No
[2018-06-29 08:42] LABS: ALBUMIN 2.5 g/dl (3.4-5.0); ALK PHOS 239 U/L (45-117); ANION GAP 11 MMOL/L (8-16); BILIRUBIN,TOTAL 2.1 mg/dL (0.2-1); BLOOD UREA NITROGEN 69 mg/dL (7-18); CALCIUM 7.7 mg/dL (8.5-10.1); CHLORIDE 95 mmol/L (98-107); CO2 24 mmol/L (21-32); CREATININE 2.9 mg/dL (0.55-1.3); GLUCOSE,RANDOM 231 mg/dL (74-106); SGOT/AST 3497 U/L (15-37); SGPT/ALT 2602 U/L (13-61); SODIUM 130 mmol/L (136-145); TOT PROT 5.5 g/dl (6.4-8.2)
[2018-06-29] MEDS ORDERED: SODIUM CHLORIDE 1,000 ML IV SCH (09:15)
[2018-06-29] MEDS ORDERED: LACTATED RINGERS SOLUTION 1,000 ML/1,000 ML INFUS.BAG IV SCH (09:15)
[2018-06-29] MEDS: FINASTERIDE 5 MG TABLET (FP) PO SCH (09:41)
--- NOTE | 2018-06-29 10:00 | PN ---
Progress Note, Physician Chief Complaint: Events noted Not in distress History of Present Illness: Patient was seen and examined. Awake and alert. Chart was reviewed Denies chest pain, SOB or palpitations - Current Medication List Current Medications: Active Medications Diltiazem HCl (Cardizem Injection -) 10 mg IVPUSH Q4H PRN PRN Reason: TACHYCARDIA Finasteride (Proscar -) 5 mg PO DAILY [facility] Last Admin: 06/29/18 09:41 Dose: 5 mg Piperacillin Sod/Tazobactam (Sod 4.5 gm/ Dextrose) 100 mls @ 200 mls/hr IVPB Q8H-IV CEASAR; Protocol Last Admin: 06/29/18 09:43 Dose: 200 mls/hr Metronidazole (Flagyl 500mg Premixed Ivpb -) 500 mg in 100 mls @ 100 mls/hr IVPB Q8H-IV CEASAR Last Admin: 06/29/18 01:36 Dose: 100 mls/hr Sodium Chloride (Normal Saline -) 1,000 mls @ 83 mls/hr IV ASDIR [facility] Last Admin: 06/29/18 09:42 Dose: 83 mls/hr Insulin Aspart (Novolog Vial Sliding Scale -) 1 vial SQ ACHS [facility]; Protocol Last Admin: 06/29/18 06:09 Dose: Not Given Metoprolol Tartrate (Lopressor -) 25 mg PO TID [facility] Last Admin: 06/29/18 05:45 Dose: 25 mg Morphine Sulfate (Morphine Sulfate) 2 mg IVPUSH Q3H PRN PRN Reason: PAIN LEVEL 7 - 10 Last Admin: 06/28/18 09:01 Dose: 2 mg - Objective Vital Signs: Vital Signs Temperature 97.6 F 06/29/18 06:00 Pulse Rate 78 06/29/18 06:00 Respiratory Rate 20 06/29/18 06:00 Blood Pressure 104/60 06/29/18 06:00 O2 Sat by Pulse Oximetry (%) 94 L 06/28/18 21:00 HENT: Yes: Atraumatic Neck: Yes: Supple Cardiovascular: Yes: Pulse Irregular, S1, S2 Respiratory: Yes: CTA Bilaterally Gastrointestinal: Yes: Normal Bowel Sounds, Soft. No: Tenderness Edema: No Additional Findings/Remarks: - Review of Systems Constitutional: denies: Chills, Fever Cardiovascular: denies: Shortness of Breath. denies: Chest Pain, Palpitations Respiratory: denies: SOB, SOB on Exertion. denies: Cough, Hemoptysis, Orthopnea , PND Gastrointestinal: denies: Abdominal Pain, Constipation, Diarrhea, Melena, Nausea , Rectal Bleeding, Vomiting Musculoskeletal: denies: Back Pain, Joint Pain Neurological: denies: Dizziness, Headache, Seizure, Syncope Labs: CBC, BMP 06/29/18 06:30 06/29/18 06:30 INR, PTT INR 1.44 (0.83-1.09) H 06/29/18 06:30 Laboratory Results - last 24 hr 06/28/18 06/28/18 06/28/18 06:20 16:35 21:41 WBC RBC Hgb Hct MCV MCH MCHC RDW Plt Count MPV Absolute Neuts (auto) Neutrophils % Neutrophils % (Manual) 76.0 Band Neutrophils % 12.0 Lymphocytes % Lymphocytes % (Manual) 1.0 L Monocytes % Monocytes % (Manual) 7 Eosinophils % Eosinophils % (Manual) 0.0 Basophils % Basophils % (Manual) 0.0 Myelocytes % (Man) 1 Promyelocytes % (Man) 0 Blast Cells % (Manual) 0 Nucleated RBC % 0 Metamyelocytes 2 PT with INR INR Sodium Potassium Chloride Carbon Dioxide Anion Gap BUN Creatinine Creat Clearance w eGFR POC Glucometer 154 329 Random Glucose Calcium Phosphorus Magnesium Total Bilirubin Direct Bilirubin AST ALT Alkaline Phosphatase Troponin I C-Reactive Protein Total Protein Albumin Total Amylase Lipase Urine Color Urine Appearance Urine pH Ur Specific [place] Urine Protein Urine Glucose (UA) Urine Ketones Urine Blood Urine Nitrite Urine Bilirubin Urine Urobilinogen Ur Leukocyte Esterase Urine WBC (Auto) Urine RBC (Auto) Urine Bacteria Urine Mucus 06/28/18 06/29/18 06/29/18 22:51 01:45 05:44 WBC RBC Hgb Hct MCV MCH MCHC RDW Plt Count MPV Absolute Neuts (auto) Neutrophils % Neutrophils % (Manual) Band Neutrophils % Lymphocytes % Lymphocytes % (Manual) Monocytes % Monocytes % (Manual) Eosinophils % Eosinophils % (Manual) Basophils % Basophils % (Manual) Myelocytes % (Man) Promyelocytes % (Man) Blast Cells % (Manual) Nucleated RBC % Metamyelocytes PT with INR INR Sodium Potassium Chloride Carbon Dioxide Anion Gap BUN Creatinine Creat Clearance w eGFR POC Glucometer 321 219 Random Glucose Calcium Phosphorus Magnesium Total Bilirubin Direct Bilirubin AST ALT Alkaline Phosphatase Troponin I C-Reactive Protein Total Protein Albumin Total Amylase Lipase Urine Color [place] Urine Appearance Cloudy Urine pH 5.0 Ur Specific [place] 1.020 Urine Protein 2+ H Urine Glucose (UA) 1+ H Urine Ketones Negative Urine Blood 1+ H Urine Nitrite Negative Urine Bilirubin Negative Urine Urobilinogen 2.0 Ur Leukocyte Esterase Negative Urine WBC (Auto) 8 Urine RBC (Auto) 4 Urine Bacteria Rare Urine Mucus Rare 06/29/18 06/29/18 06/29/18 06:30 06:30 06:30 WBC 10.9 H RBC 3.67 L Hgb 11.0 L Hct 31.7 L MCV 86.4 MCH 29.9 MCHC 34.6 RDW 15.9 Plt Count 131 L MPV 9.7 Absolute Neuts (auto) 9.6 H Neutrophils % 87.8 H Neutrophils % (Manual) Band Neutrophils % Lymphocytes % 4.1 L D Lymphocytes % (Manual) Monocytes % 6.6 Monocytes % (Manual) Eosinophils % 1.4 D Eosinophils % (Manual) Basophils % 0.1 Basophils % (Manual) Myelocytes % (Man) Promyelocytes % (Man) Blast Cells % (Manual) Nucleated RBC % 0 Metamyelocytes PT with INR INR Sodium 130 L Potassium 4.0 Chloride 95 L Carbon Dioxide 24 Anion Gap 11 BUN 69 H Creatinine 2.9 H Creat Clearance w eGFR 20.64 POC Glucometer Random Glucose 231 H Calcium 7.7 L Phosphorus 5.1 H Magnesium 2.1 Total Bilirubin 2.1 H Direct Bilirubin 1.8 H AST 3497 H ALT 2602 H Alkaline Phosphatase 239 H Troponin I 1.56 H* C-Reactive Protein 32.7 H Total Protein 5.5 L Albumin 2.5 L Total Amylase 19 L Lipase 147 Urine Color Urine Appearance Urine pH Ur Specific [place] Urine Protein Urine Glucose (UA) Urine Ketones Urine Blood Urine Nitrite Urine Bilirubin Urine Urobilinogen Ur Leukocyte Esterase Urine WBC (Auto) Urine RBC (Auto) Urine Bacteria Urine Mucus 06/29/18 06:30 WBC RBC Hgb Hct MCV MCH MCHC RDW Plt Count MPV Absolute Neuts (auto) Neutrophils % Neutrophils % (Manual) Band Neutrophils % Lymphocytes % Lymphocytes % (Manual) Monocytes % Monocytes % (Manual) Eosinophils % Eosinophils % (Manual) Basophils % Basophils % (Manual) Myelocytes % (Man) Promyelocytes % (Man) Blast Cells % (Manual) Nucleated RBC % Metamyelocytes PT with INR 17.00 H INR 1.44 H Sodium Potassium Chloride Carbon Dioxide Anion Gap BUN Creatinine Creat Clearance w eGFR POC Glucometer Random Glucose Calcium Phosphorus Magnesium Total Bilirubin Direct Bilirubin AST ALT Alkaline Phosphatase Troponin I C-Reactive Protein Total Protein Albumin Total Amylase Lipase Urine Color Urine Appearance Urine pH Ur Specific [place] Urine Protein Urine Glucose (UA) Urine Ketones Urine Blood Urine Nitrite Urine Bilirubin Urine Urobilinogen Ur Leukocyte Esterase Urine WBC (Auto) Urine RBC (Auto) Urine Bacteria Urine Mucus Problem List - Problems (1) HTN (hypertension) Code(s): I10 - ESSENTIAL (PRIMARY) HYPERTENSION Qualifiers: Hypertension type: essential hypertension Qualified Code(s): I10 - Essential (primary) hypertension (2) Acute cholecystitis due to biliary calculus Code(s): K80.00 - CALCULUS OF GALLBLADDER W ACUTE CHOLECYST W/O OBSTRUCTION (3) Atrial fibrillation with RVR Code(s): I48.91 - UNSPECIFIED ATRIAL FIBRILLATION (4) CKD (chronic kidney disease) Code(s): N18.9 - CHRONIC KIDNEY DISEASE, UNSPECIFIED (5) Demand ischemia Code(s): I24.8 - OTHER FORMS OF ACUTE ISCHEMIC HEART DISEASE (6) Hyperlipidemia Code(s): E78.5 - HYPERLIPIDEMIA, UNSPECIFIED Qualifiers: Hyperlipidemia type: pure hypercholesterolemia Qualified Code(s): E78.00 - Pure hypercholesterolemia, unspecified; E78.0 - Pure hypercholesterolemia (7) Pancreatitis Code(s): K85.90 - ACUTE PANCREATITIS WITHOUT NECROSIS OR INFECTION, UNSP Qualifiers: Chronicity: acute Pancreatitis type: unspecified pancreatitis type Acute pancreatitis complication: unspecified Qualified Code(s): K85.90 - Acute pancreatitis without necrosis or infection, unspecified Assessment/Plan 1. Clinical presentation consistent with acute calculus cholecystitis with pancreatits 2. CAD coronary artery calcification with demand ischemia 3. Diastolic LV dysfunction with clinical class 0 NYHA classification LV failure 4. Persistent atrial fibrillation with RVR [id number] score of 5-6 on no A/C 5. HTN 6. DM 7. Hypercholesterolemia 8. Chronic kidney disease 9. OSAS PLAN: 1. Continue current medications including Metoprolol PO. Cardizem IV can be given when needed for rate control 2. Resume Lisinopril therapy once renal function at baseline with caution 3. Withhold HCTZ and statin therapy for now 4. Ideally patient should be on A/C considering the above noted [id number] score of 5-6 once post-procedure hemostasis achieved 5. Surgery input to follow and possible timing of cholecystectomy to be decided 6. CPAP 7. Echocardiography was done today and will follow result [employer] [facility] Dr. Melo Myers [facility]/Fabiola Hernandez Further plans are to follow Lee Payan MD
[2018-06-29] MEDS: LACTATED RINGERS SOLUTION 1,000 ML/1,000 ML INFUS.BAG IV SCH (10:38)
--- NOTE | 2018-06-29 11:52 | CONSULT ---
Consult Consult Specialty:: Nephrology Reason for Consultation:: TRUNG - History of Present Illness Chief Complaint: initially presented with chest discomfort History of Present Illness: Pt is an 88 year old male with pmhx of HLD, HTN, DM, and a-fib who initially presented with chest dicomfort. He was found to have pancreatitis and was taken for ERCP as he had stones. He developed renal failure yesterday and I was called to evaluate him. He denies hematuria or dysuria. He denies shortness of breath at rest. He denies lower ext edema. He was on an lisinopril and a thiazide. - History Source History Provided By: Patient, Medical Record - Past Medical History Cardio/Vascular: Yes: AFIB, HTN, Other (PVD) Endocrine: Yes: Diabetes Mellitus - Alcohol/Substance Use Hx Alcohol Use: No - Smoking History Smoking history: Never smoked Have you smoked in the past 12 months: No Home Medications - Allergies Allergies/Adverse Reactions: Allergies Allergy/AdvReac Type Severity Reaction Status Date / Time No Known Allergies Allergy Verified 06/27/18 04:04 - Home Medications Home Medications: Ambulatory Orders Aspirin [ASA -] 81 mg PO DAILY 03/30/15 Clopidogrel Bisulfate [Plavix -] 75 mg PO DAILY 03/30/15 Finasteride [Proscar] 5 mg PO DAILY 03/30/15 Glipizide [Glipizide ER] 5 mg PO DAILY 03/30/15 Hydrochlorothiazide 25 mg PO DAILY 03/30/15 Lisinopril [Prinivil -] 40 mg PO DAILY 03/30/15 Metformin HCl [Glucophage] 1,000 mg PO BID 03/30/15 Pioglitazone HCl [Actos] 30 mg PO DAILY 03/30/15 Simvastatin [Zocor -] 20 mg PO HS 03/30/15 Family Disease History - Family Disease History Family History: Denies Review of Systems - Review of Systems Constitutional: denies: Chills, Fever Eyes: reports: No Symptoms HENT: reports: No Symptoms Neck: reports: No Symptoms Cardiovascular: reports: No Symptoms Respiratory: reports: SOB on Exertion Gastrointestinal: reports: No Symptoms Genitourinary: reports: No Symptoms Musculoskeletal: reports: No Symptoms Integumentary: reports: No Symptoms Neurological: reports: No Symptoms Physical Exam Vital Signs: Vital Signs Temperature 97.6 F 06/29/18 06:00 Pulse Rate 78 06/29/18 06:00 Respiratory Rate 20 06/29/18 06:00 Blood Pressure 104/60 06/29/18 06:00 O2 Sat by Pulse Oximetry (%) 94 L 06/28/18 21:00 Constitutional: Yes: Calm Eyes: Yes: Conjunctiva Clear HENT: Yes: Atraumatic Neck: Yes: Supple Cardiovascular: Yes: S1, S2 Respiratory: Yes: On Nasal O2 Gastrointestinal: Yes: Soft, Abdomen, Obese Renal/: Yes: WNL Musculoskeletal: Yes: WNL Edema: No Neurological: Yes: Oriented Psychiatric: Yes: Oriented Labs: CBC, BMP 06/29/18 06:30 06/29/18 06:30 Laboratory Tests 06/27/18 06/27/18 06/28/18 04:45 23:20 06:20 Sodium Potassium BUN 43 H Creatinine 1.5 H 1.5 H 1.8 H AST ALT Urine Protein Urine Blood 06/29/18 06/29/18 01:45 06:30 Sodium 130 L Potassium 4.0 BUN 69 H Creatinine 2.9 H AST 3497 H ALT 2602 H Urine Protein 2+ H Urine Blood 1+ H Imaging - Results Chest X-ray: Report Reviewed Problem List - Problems (1) TRUNG (acute kidney injury) Code(s): N17.9 - ACUTE KIDNEY FAILURE, UNSPECIFIED (2) Acute cholecystitis due to biliary calculus Code(s): K80.00 - CALCULUS OF GALLBLADDER W ACUTE CHOLECYST W/O OBSTRUCTION (3) Atrial fibrillation with RVR Code(s): I48.91 - UNSPECIFIED ATRIAL FIBRILLATION (4) CKD (chronic kidney disease) Code(s): N18.9 - CHRONIC KIDNEY DISEASE, UNSPECIFIED (5) HTN (hypertension) Code(s): I10 - ESSENTIAL (PRIMARY) HYPERTENSION Qualifiers: Hypertension type: essential hypertension Qualified Code(s): I10 - Essential (primary) hypertension (6) Pancreatitis Code(s): K85.90 - ACUTE PANCREATITIS WITHOUT NECROSIS OR INFECTION, UNSP Qualifiers: Chronicity: acute Pancreatitis type: unspecified pancreatitis type Acute pancreatitis complication: unspecified Qualified Code(s): K85.90 - Acute pancreatitis without necrosis or infection, unspecified Assessment/Plan Current Medications Generic Name Dose Route Start Last Admin Trade Name Freq PRN Reason Stop Dose Admin Diltiazem HCl 10 mg 06/28/18 10:36 Cardizem Injection - IVPUSH Q4H PRN TACHYCARDIA Finasteride 5 mg 06/27/18 12:45 06/29/18 09:41 Proscar - PO 5 mg DAILY [facility] Administration Piperacillin Sod/Tazobactam 100 mls @ 200 mls/hr 06/28/18 00:45 06/29/18 09: 43 Sod 4.5 gm/ Dextrose IVPB 200 mls/hr Q8H-IV [facility] Administration Protocol Metronidazole 500 mg in 100 mls @ 100 mls/hr 06/28/18 10:00 06/29/18 10:39 Flagyl 500mg Premixed Ivpb - IVPB 100 mls/hr Q8H-IV [facility] Administration Lactated Ringer's 1,000 ml in 1,000 mls @ 42 mls/hr 06/29/18 10:15 06/29/18 10:38 Lactated Ringers Solution IV 42 mls/hr ASDIR [facility] Administration Insulin Aspart 1 vial 06/27/18 11:00 06/29/18 06:09 Novolog Vial Sliding Scale - SQ Not Given ACHS [facility] Protocol Metoprolol Tartrate 25 mg 06/28/18 10:45 06/29/18 05:45 Lopressor - PO 25 mg TID [facility] Administration Morphine Sulfate 2 mg 06/27/18 17:50 06/28/18 09:01 Morphine Sulfate IVPUSH 2 mg Q3H PRN Administration PAIN LEVEL 7 - 10 Impression 1. TRUNG 2. CKD 3. pancreatitis 4. a-fib 5. DM 6. HTN Plan - check ua - send urine lytes and street car inspector to calc fena - hold diuretics for now - check kidney and bladder ultrasound to r/o obstruction - started on fluids, will monitor labs - he is making urine - follow echo
--- NOTE | 2018-06-29 13:52 | EKG ---
Test Reason : Blood Pressure : / mmHG Vent. Rate : 108 BPM Atrial Rate : 108 BPM P-R Int : 000 ms QRS Dur : 108 ms QT Int : 314 ms P-R-T Axes : 040 -62 076 degrees QTc Int : 420 ms SINUS TACHYCARDIA WITH 1ST DEGREE A-V BLOCK WITH PREMATURE ATRIAL COMPLEXES LEFT ANTERIOR FASCICULAR BLOCK CANNOT RULE OUT ANTERIOR INFARCT , AGE UNDETERMINED ABNORMAL ECG NO PREVIOUS ECGS AVAILABLE Confirmed by MD Lenin, Jose ([id number]) on 06/29/2018 1:51:55 PM Referred By: Confirmed By:Jsoe Phelps MD
--- NOTE | 2018-06-29 14:52 | ECHO ---
Name: CAMERON ACEVEDO Exam:Adult Echocardiogram Study Date: 06/29/2018 07:33 AM Age: 88 yrs Reason For Study: Chest pain Height: 73 in Weight: 275 lb BSA: 2.5 m2 MMode/2D Measurements & Calculations IVSd: 1.5 cm Ao root diam: 4.9 cm LVIDd: 5.5 cm LA dimension: 2.9 cm LVIDs: 3.8 cm ACS: 2.2 cm LVPWd: 1.3 cm IVSs: 1.5 cm LVPWs: 1.5 cm EDV(Teich): 149.1 ml ESV(Teich): 63.7 ml Doppler Measurements & Calculations MV E max ector: 71.3 cm/sec Ao V2 max: 104.7 cm/sec MV A max ector: 80.0 cm/sec Ao max P.4 mmHg MV E/A: 0.89 Ao V2 mean: 84.8 cm/sec Ao mean P.0 mmHg Ao V2 VTI: 22.7 cm AI P1/2t: 475.1 msec AI max ector: 388.6 cm/sec MR max ector: 432.4 cm/sec AI max P.4 mmHg MR max P.9 mmHg AI dec slope: 239.6 cm/sec2 TR max ector: 220.6 cm/sec PI end-d ector: 62.4 cm/sec TR max P.5 mmHg Med Peak E' Ector: 5.8 cm/sec Med E/e': 12.4 Lat Peak E' Ector: 7.9 cm/sec Lat E/e': 9.0 Left Ventricle Normal LV function. Mild to moderate LVH. EF 57%. Abnormal diastolic relaxation. Right Ventricle The right ventricle is normal in size and function. Atria Normal left and right atrial size and function. Mitral Valve The mitral valve leaflets appear normal. There is no evidence of stenosis, fluttering, or prolapse. T here is mild mitral regurgitation. Tricuspid Valve The tricuspid valve is not well visualized, but is grossly normal. There is mild tricuspid regurgitat ion. Aortic Valve The aortic valve is normal in structure and function. Mild aortic regurgitation. Great Vessels The aortic root is diatlated, measuring 4.9 cm. Pericardium/Pleura There is no pericardial effusion. Interpretation Summary Normal LV function. Mild to moderate LVH. EF 57%. Abnormal diastolic relaxation. The right ventricle is normal in size and function. Normal left and right atrial size and function. The mitral valve leaflets appear normal. There is no evidence of stenosis, fluttering, or prolapse. There is mild mitral regurgitation. The tricuspid valve is not well visualized, but is grossly normal. There is mild tricuspid regurgitation. The aortic valve is normal in structure and function. The aortic root is diatlated, measuring 4.9 cm. MD Jose Phelps 06/29/2018 02:51 PM
--- NOTE | 2018-06-29 16:18 | PN ---
GI Progress Note Subjective: No acute events States feeling well No abdominal pain MRI revealed normal liver and diltaed CBD - Objective Vital Signs: Vital Signs Temperature 98.6 F 06/29/18 14:55 Pulse Rate 77 06/29/18 14:55 Respiratory Rate 20 06/29/18 14:55 Blood Pressure 109/63 06/29/18 14:55 O2 Sat by Pulse Oximetry (%) 94 L 06/29/18 12:57 Constitutional: Calm Eyes: No: Sclera Icterus Cardiovascular: Yes: Pulse Irregular Respiratory: Yes: Diminished (at bases bilaterally) Gastrointestinal Inspection: No: Scars ...Auscultate: Yes: Normoactive Bowel Sounds ...Palpate: No: Hepatomegaly, Splenomegaly, Tenderness Edema: No (No LE edema) Neurological: Yes: Alert Labs: CBC, BMP 06/29/18 06:30 06/29/18 06:30 INR, PTT INR 1.44 (0.83-1.09) H 06/29/18 06:30 Hepatic Panel Total Bilirubin 2.1 mg/dL (0.2-1) H 06/29/18 06:30 Direct Bilirubin 1.8 mg/dL (0.0-0.2) H 06/29/18 06:30 AST 3497 U/L (15-37) H 06/29/18 06:30 ALT 2602 U/L (13-61) H 06/29/18 06:30 Alkaline Phosphatase 239 U/L (45-117) H 06/29/18 06:30 Albumin 2.5 g/dl (3.4-5.0) L 06/29/18 06:30 Problem List - Problems (1) Choledocholithiasis with acute cholecystitis Assessment/Plan: Clinically well. Post procedure, transaminases have risen. Suspect secondary to transient hypoxemia s/p ERCP with subsequent ischemic hepatopathy. Avoid hepatotoxic agents Ordered repeat hepatic panel for this afternoon and for AM along with CPK and hepatitis serologies On IV Abx Surgery following and will determined timing of cholecystectomy Code(s): K80.42 - CALCULUS OF BILE DUCT W ACUTE CHOLECYSTITIS W/O OBSTRUCTION
[2018-06-29 19:34] LABS: ALBUMIN 2.5 g/dl (3.4-5.0); BILIRUBIN,DIRECT 1.2 mg/dL (0.0-0.2); BILIRUBIN,TOTAL 1.6 mg/dL (0.2-1); TOT PROT 5.8 g/dl (6.4-8.2)
[2018-06-30] MEDS ORDERED: DEXTROSE 5%-WATER 100 ML IVPB ONE ×3 (01:18→18:10)
[2018-06-30] MEDS ORDERED: PIPERACILLIN/TAZOBACTAM 4.5 GM VIAL IVPB ONE ×3 (01:18→18:10)
[2018-06-30] MEDS: PIPERACILLIN/TAZOB 4.5 GM 4.5 GM in DEXTROSE 5%-WATER 100 ML IVPB SCH ×3 (01:24→18:13)
[2018-06-30] MEDS: METOPROLOL TARTRATE 25 MG TABLET (FP) PO SCH ×3 (05:46→22:01)
[2018-06-30] MEDS: INSULIN SLIDING SCALE (NOVOLOG) 1 VIAL SQ SCH ×4 (06:00→22:01)
[2018-06-30 06:13] LABS: BASO % 0.2 % (0-2.0); EOS % 0.1 % (0-4.5); HEMATOCRIT 33.3 % (35.4-49); HEMOGLOBIN 11.4 GM/dL (11.7-16.9); LYMPH % 7.3 % (8-40); MCH 29.5 pg (25.7-33.7); MCHC 34.3 g/dl (32.0-35.9); MEAN CELL VOLUME 86.1 fl (80-96); MEAN PLT VOLUME 9.5 fl (7.5-11.1); MONO % 7.4 % (3.8-10.2); PLATELET COUNT 162 K/MM3 (134-434); RBC 3.87 M/mm3 (4.00-5.60); RDW 16.3 % (11.9-15.9); WHITE BLOOD COUNT 10.8 K/mm3 (4.0-10.0)
[2018-06-30 06:21] LABS: INR 1.25 (0.83-1.09); PROTHROMBIN TIME (PATIENT) 14.8 SEC (9.7-13.0)
[2018-06-30 06:50] LABS: ALBUMIN 2.4 g/dl (3.4-5.0); ALK PHOS 204 U/L (45-117); ANION GAP 10 MMOL/L (8-16); BILIRUBIN,TOTAL 1.4 mg/dL (0.2-1); BLOOD UREA NITROGEN 75 mg/dL (7-18); CALCIUM 8.1 mg/dL (8.5-10.1); CHLORIDE 98 mmol/L (98-107); CO2 26 mmol/L (21-32); CREATININE 2.6 mg/dL (0.55-1.3); GLUCOSE,RANDOM 160 mg/dL (74-106); MAGNESIUM 2.2 mg/dL (1.8-2.4); PHOSPHOROUS 3.1 mg/dL (2.5-4.9); POTASSIUM 3.6 mmol/L (3.5-5.1); SGOT/AST 1152 U/L (15-37); SGPT/ALT 1649 U/L (13-61); SODIUM 133 mmol/L (136-145); TOT PROT 5.1 g/dl (6.4-8.2)
[2018-06-30 06:54] LABS: ALBUMIN 2.4 g/dl (3.4-5.0); BILIRUBIN,TOTAL 1.5 mg/dL (0.2-1); TOT PROT 6.2 g/dl (6.4-8.2)
--- NOTE | 2018-06-30 09:57 | PN ---
Progress Note, Physician Chief Complaint: Follow up for choledochelithiasis/cholecystitis. History of Present Illness: Patient feels great. No abdominal or back pain. No pruritus. - Current Medication List Current Medications: Active Medications Diltiazem HCl (Cardizem Injection -) 10 mg IVPUSH Q4H PRN PRN Reason: TACHYCARDIA Finasteride (Proscar -) 5 mg PO DAILY [facility] Last Admin: 06/29/18 09:41 Dose: 5 mg Piperacillin Sod/Tazobactam (Sod 4.5 gm/ Dextrose) 100 mls @ 200 mls/hr IVPB Q8H-IV [facility]; Protocol Last Admin: 06/30/18 01:24 Dose: 200 mls/hr Metronidazole (Flagyl 500mg Premixed Ivpb -) 500 mg in 100 mls @ 100 mls/hr IVPB Q8H-IV [facility] Last Admin: 06/30/18 02:39 Dose: 100 mls/hr Lactated Ringer's (Lactated Ringers Solution) 1,000 ml in 1,000 mls @ 42 mls/ hr IV ASDIR [facility] Last Admin: 06/29/18 10:38 Dose: 42 mls/hr Insulin Aspart (Novolog Vial Sliding Scale -) 1 vial SQ ACHS [facility]; Protocol Last Admin: 06/30/18 06:00 Dose: 2 units Metoprolol Tartrate (Lopressor -) 25 mg PO TID [facility] Last Admin: 06/30/18 05:46 Dose: 25 mg Morphine Sulfate (Morphine Sulfate) 2 mg IVPUSH Q3H PRN PRN Reason: PAIN LEVEL 7 - 10 Last Admin: 06/28/18 09:01 Dose: 2 mg - Objective Vital Signs: Vital Signs Temperature 98.7 F 06/30/18 06:00 Pulse Rate 72 06/30/18 06:00 Respiratory Rate 20 06/30/18 06:00 Blood Pressure 129/75 06/30/18 06:00 O2 Sat by Pulse Oximetry (%) 99 06/30/18 01:46 Constitutional: Yes: Well Nourished, No Distress Eyes: No: Sclera Icterus Gastrointestinal: Yes: Normal Bowel Sounds, Soft. No: Distention, Hepatomegaly , Tenderness Labs: CBC, BMP 06/30/18 06:00 06/30/18 06:00 INR, PTT INR 1.25 (0.83-1.09) H 06/30/18 06:00 Assessment/Plan Doing well post ERCP with stent placement. Remains pain-free and afebrile since Large rise of ALT now resolving; bilirubin normal, though alk phos persistently elevated in 200's. For now will continue to observe. For CCx once stable from anti-platelet sense. Continue to follow liver chemistries.
[2018-06-30] MEDS: FINASTERIDE 5 MG TABLET (FP) PO SCH (10:38)
[2018-06-30] MEDS: LACTATED RINGERS SOLUTION 1,000 ML/1,000 ML INFUS.BAG IV SCH (10:40)
[2018-06-30 10:58] LABS: ANISOCYTOSIS 0; HELMET CELLS 0; HOWELL-JOLLY BODIES 0; MACROCYTOSIS 0; OVALOCYTE 0; ROULEAU 0; SICKELED CELLS 0; TARGET CELLS 0; TEAR DROP CELLS 0; TOXIC GRANULATION 0
[2018-06-30 11:41] LABS: PLATELET ESTIMATE ADEQUATE
--- NOTE | 2018-06-30 12:08 | PN ---
Progress Note, Physician History of Present Illness: Epigastric pain resolved, denies nausea or emesis, cp or dyspnea, afebrile. - Current Medication List Current Medications: Active Medications Diltiazem HCl (Cardizem Injection -) 10 mg IVPUSH Q4H PRN PRN Reason: TACHYCARDIA Finasteride (Proscar -) 5 mg PO DAILY [facility] Last Admin: 06/30/18 10:38 Dose: 5 mg Piperacillin Sod/Tazobactam (Sod 4.5 gm/ Dextrose) 100 mls @ 200 mls/hr IVPB Q8H-IV [facility]; Protocol Last Admin: 06/30/18 10:39 Dose: 200 mls/hr Metronidazole (Flagyl 500mg Premixed Ivpb -) 500 mg in 100 mls @ 100 mls/hr IVPB Q8H-IV [facility] Last Admin: 06/30/18 10:39 Dose: 100 mls/hr Lactated Ringer's (Lactated Ringers Solution) 1,000 ml in 1,000 mls @ 42 mls/ hr IV ASDIR [facility] Last Admin: 06/30/18 10:40 Dose: Not Given Insulin Aspart (Novolog Vial Sliding Scale -) 1 vial SQ ACHS [facility]; Protocol Last Admin: 06/30/18 11:54 Dose: 2 units Metoprolol Tartrate (Lopressor -) 25 mg PO TID [facility] Last Admin: 06/30/18 05:46 Dose: 25 mg Morphine Sulfate (Morphine Sulfate) 2 mg IVPUSH Q3H PRN PRN Reason: PAIN LEVEL 7 - 10 Last Admin: 06/28/18 09:01 Dose: 2 mg - Objective Vital Signs: Vital Signs Temperature 98.7 F 06/30/18 06:00 Pulse Rate 72 06/30/18 06:00 Respiratory Rate 20 06/30/18 06:00 Blood Pressure 129/75 06/30/18 06:00 O2 Sat by Pulse Oximetry (%) 99 06/30/18 01:46 Constitutional: Yes: No Distress, Calm Neck: Yes: Supple Cardiovascular: Yes: Regular Rate and Rhythm Respiratory: Yes: Regular, Diminished, On Nasal O2 Gastrointestinal: Yes: Soft, Hypoactive Bowel Sounds Edema: No Labs: CBC, BMP 06/30/18 06:00 06/30/18 06:00 INR, PTT INR 1.25 (0.83-1.09) H 06/30/18 06:00 - ....Imaging EKG: Report Reviewed (Tele: SR CHAVEZ) Problem List - Problems (1) Acute cholecystitis due to biliary calculus Code(s): K80.00 - CALCULUS OF GALLBLADDER W ACUTE CHOLECYST W/O OBSTRUCTION (2) Atrial fibrillation with RVR Code(s): I48.91 - UNSPECIFIED ATRIAL FIBRILLATION (3) Pancreatitis Code(s): K85.90 - ACUTE PANCREATITIS WITHOUT NECROSIS OR INFECTION, UNSP Qualifiers: Chronicity: acute Pancreatitis type: unspecified pancreatitis type Acute pancreatitis complication: unspecified Qualified Code(s): K85.90 - Acute pancreatitis without necrosis or infection, unspecified (4) CKD (chronic kidney disease) Code(s): N18.9 - CHRONIC KIDNEY DISEASE, UNSPECIFIED (5) Demand ischemia Code(s): I24.8 - OTHER FORMS OF ACUTE ISCHEMIC HEART DISEASE (6) Hyperlipidemia Code(s): E78.5 - HYPERLIPIDEMIA, UNSPECIFIED Qualifiers: Hyperlipidemia type: pure hypercholesterolemia Qualified Code(s): E78.00 - Pure hypercholesterolemia, unspecified; E78.0 - Pure hypercholesterolemia Assessment/Plan 06/29/2018 MRCP: GS and sludge c/w acute cholecystitis without choledocholithiasis or biliary ductal dilatation 06/29/2018 Renal US: Large PVR >500 cc, no hydronephrosis 06/29/2018 Normal LV fxn, mild-mod LVH EF 57%, abnl LV compliance, normal RV size and fxn, normal biatrial sizes, mild MR, TR, dilated ao 4.9 cm 1. Acute calculus cholecystitis with GS pancreatits s/p ERCP stone retrieval, sphincterotomy and biliary stent placement 2. Biliary sepsis 3. CAD coronary artery calcification with demand ischemia 4. Diastolic LV dysfunction with clinical class 0 NYHA classification LV failure 5. Persistent atrial fibrillation with RVR [id number] score of 5-6 on no A/C 6. HTN 7. DM 8. Hypercholesterolemia 9. 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 Bladder outlet obstruction PLAN: 1. Continue current medications including Metoprolol 25 PO tid. Cardizem IV can be given when needed for additional rate control 2. Resume Lisinopril therapy once renal function at baseline with caution 3. Withhold HCTZ and statin therapy for now, IVF, amanda 4. Ideally patient should be on A/C considering the above noted [id number] score of 5-6 once post-procedure hemostasis achieved, would start heparin gtt pending planned lap cholecystectomy 5. Surgery input to follow and possible timing of cholecystectomy to be decided , LFTs trending downwards, maintain on abx to cover biliary sepsis per C&S 6. CPAP nightly Peripatologist Dr. Melo Myers [facility] [place]/Fabiola Hernandez
--- NOTE | 2018-06-30 12:37 | PN ---
Progress Note, Physician History of Present Illness: Pt seen and examined at bedside. He is awake and alert. He denies shortness of breath. He is making urine. - Current Medication List Current Medications: Active Medications Diltiazem HCl (Cardizem Injection -) 10 mg IVPUSH Q4H PRN PRN Reason: TACHYCARDIA Finasteride (Proscar -) 5 mg PO DAILY [facility] Last Admin: 06/30/18 10:38 Dose: 5 mg Piperacillin Sod/Tazobactam (Sod 4.5 gm/ Dextrose) 100 mls @ 200 mls/hr IVPB Q8H-IV [facility]; Protocol Last Admin: 06/30/18 10:39 Dose: 200 mls/hr Metronidazole (Flagyl 500mg Premixed Ivpb -) 500 mg in 100 mls @ 100 mls/hr IVPB Q8H-IV [facility] Last Admin: 06/30/18 10:39 Dose: 100 mls/hr Lactated Ringer's (Lactated Ringers Solution) 1,000 ml in 1,000 mls @ 42 mls/ hr IV ASDIR [facility] Last Admin: 06/30/18 10:40 Dose: Not Given Insulin Aspart (Novolog Vial Sliding Scale -) 1 vial SQ ACHS [facility]; Protocol Last Admin: 06/30/18 11:54 Dose: 2 units Metoprolol Tartrate (Lopressor -) 25 mg PO TID [facility] Last Admin: 06/30/18 05:46 Dose: 25 mg Morphine Sulfate (Morphine Sulfate) 2 mg IVPUSH Q3H PRN PRN Reason: PAIN LEVEL 7 - 10 Last Admin: 06/28/18 09:01 Dose: 2 mg - Objective Vital Signs: Vital Signs Temperature 98.6 F 06/30/18 10:00 Pulse Rate 65 06/30/18 10:00 Respiratory Rate 20 06/30/18 10:00 Blood Pressure 120/69 06/30/18 10:00 O2 Sat by Pulse Oximetry (%) 99 06/30/18 01:46 Constitutional: Yes: Calm Eyes: Yes: Conjunctiva Clear HENT: Yes: Atraumatic Neck: Yes: Supple Cardiovascular: Yes: S1, S2 Respiratory: Yes: CTA Bilaterally, On Nasal O2 Gastrointestinal: Yes: Soft, Abdomen, Obese Genitourinary: Yes: WNL Musculoskeletal: Yes: WNL Edema: No Neurological: Yes: Oriented Psychiatric: Yes: Oriented Labs: CBC, BMP 06/30/18 06:00 06/30/18 06:00 INR, PTT INR 1.25 (0.83-1.09) H 06/30/18 06:00 Problem List - Problems (1) TRUNG (acute kidney injury) Code(s): N17.9 - ACUTE KIDNEY FAILURE, UNSPECIFIED (2) Acute cholecystitis due to biliary calculus Code(s): K80.00 - CALCULUS OF GALLBLADDER W ACUTE CHOLECYST W/O OBSTRUCTION (3) Atrial fibrillation with RVR Code(s): I48.91 - UNSPECIFIED ATRIAL FIBRILLATION (4) CKD (chronic kidney disease) Code(s): N18.9 - CHRONIC KIDNEY DISEASE, UNSPECIFIED (5) HTN (hypertension) Code(s): I10 - ESSENTIAL (PRIMARY) HYPERTENSION Qualifiers: Hypertension type: essential hypertension Qualified Code(s): I10 - Essential (primary) hypertension (6) Pancreatitis Code(s): K85.90 - ACUTE PANCREATITIS WITHOUT NECROSIS OR INFECTION, UNSP Qualifiers: Chronicity: acute Pancreatitis type: unspecified pancreatitis type Acute pancreatitis complication: unspecified Qualified Code(s): K85.90 - Acute pancreatitis without necrosis or infection, unspecified Assessment/Plan Current Medications Generic Name Dose Route Start Last Admin Trade Name Freq PRN Reason Stop Dose Admin Diltiazem HCl 10 mg 06/28/18 10:36 Cardizem Injection - IVPUSH Q4H PRN TACHYCARDIA Finasteride 5 mg 06/27/18 12:45 06/30/18 10:38 Proscar - PO 5 mg DAILY [facility] Administration Piperacillin Sod/Tazobactam 100 mls @ 200 mls/hr 06/28/18 00:45 06/30/18 10: 39 Sod 4.5 gm/ Dextrose IVPB 200 mls/hr Q8H-IV [facility] Administration Protocol Metronidazole 500 mg in 100 mls @ 100 mls/hr 06/28/18 10:00 06/30/18 10:39 Flagyl 500mg Premixed Ivpb - IVPB 100 mls/hr Q8H-IV [facility] Administration Lactated Ringer's 1,000 ml in 1,000 mls @ 42 mls/hr 06/29/18 10:15 06/30/18 10:40 Lactated Ringers Solution IV Not Given ASDIR [facility] Insulin Aspart 1 vial 06/27/18 11:00 06/30/18 11:54 Novolog Vial Sliding Scale - SQ 2 units ACHS [facility] Administration Protocol Metoprolol Tartrate 25 mg 06/28/18 10:45 06/30/18 05:46 Lopressor - PO 25 mg TID [facility] Administration Morphine Sulfate 2 mg 06/27/18 17:50 06/28/18 09:01 Morphine Sulfate IVPUSH 2 mg Q3H PRN Administration PAIN LEVEL 7 - 10 Impression 1. TRUNG 2. CKD 3. pancreatitis 4. a-fib 5. DM 6. HTN Plan - renal function is improving - follow urine studies ordered - cont fluids - renal ultrasound reviewed - hold diuretics for now - he is making urine - diastolic dysfunction on echo
--- NOTE | 2018-06-30 12:43 | EKG ---
Test Reason : Blood Pressure : / mmHG Vent. Rate : 141 BPM Atrial Rate : 122 BPM P-R Int : 000 ms QRS Dur : 098 ms QT Int : 298 ms P-R-T Axes : 000 -58 094 degrees QTc Int : 456 ms POOR DATA QUALITY, INTERPRETATION MAY BE ADVERSELY AFFECTED ATRIAL FIBRILLATION WITH RAPID VENTRICULAR RESPONSE WITH PREMATURE VENTRICULAR OR ABERRANTLY CONDUCTED COMPLEXES LEFT AXIS DEVIATION T WAVE ABNORMALITY, CONSIDER LATERAL ISCHEMIA ABNORMAL ECG WHEN COMPARED WITH ECG OF 27-JUN-2018 03:35, ATRIAL FIBRILLATION HAS REPLACED SINUS RHYTHM Confirmed by JOVI RAGSDALE, NEY ([id number]) on 06/30/2018 12:43:16 PM Referred By: Confirmed By:NEY ESPANA MD
--- NOTE | 2018-06-30 15:26 | PN ---
Teaching Attending Note Name of Resident: Jarret Pereira ATTENDING PHYSICIAN STATEMENT I saw and evaluated the patient. I reviewed the resident's note and discussed the case with the resident. I agree with the resident's findings and plan as documented. SUBJECTIVE: No fever or chills. No abd pain, no palpitations , no LOBO . no SOB . OBJECTIVE: NAD , awake, pleasant, and cooperative CV: RRR, no MRG Lungs: CTAB ext : no edema or erythema Abd: obese, soft, NT, ND , NL BS ASSESSMENT AND PLAN: 88 y/o man with h/o A fib, DM , CKD, HTN, diastolic heart failure, who presented with abd pain and was found to have acute pancreatitis, cholecystitis with cholangitis and bacteremia. hospital stay was complicated by episode of A fib with VR 1- Acute gall stone pancreatitis: improved 2- Acute cholangitis: s/p ERCP and stone extraction. now bacteremic - repeat blood cx - follow identification and sensitivity - cont zosyn - hold off any AC for 72 hours after the procedure - will d/w surgeon timing of sx - cont careful IV f 3- A fib : high CHADSVASC score - will start heparin gtt in am to avoid bleeding after sphincerotomy.d/w GI and card - can stop heparin for CCY - cont metoprolol 4- H/o diastolic heart failure, stable on IVF 5- TRUNG: has post void residual on US, and per RN reports holds his urine . - place amanda and monitor renal function with hydration 6- DVT PX: Scds for now after ERCP
--- NOTE | 2018-06-30 18:24 | PN ---
Addendum entered and electronically signed by Jarret Pereira, RESIDENT 06/30/18 20 :20: Spoke with Dr Hill this evening. Will need Interval Cholecystectomy in approximately 6-8 weeks duration. Gallbladder wall very hard and patient may be at increased risk of complications such as bleeding if cholecystectomy performed at this juncture Original Note: Physical Exam: SUBJECTIVE: Patient seen and examined at bedside. No acute events overnight. OBJECTIVE: Vital Signs Period Temp Pulse Resp BP Sys/Murray Pulse Ox Last 24 Hr 98.0 F-98.7 F 62-85 20-20 99-129/47-75 95-99 GENERAL: No acute distress. Alert and oriented. HEAD: atraumatic/ normocephalic EYES: Sclera Jaundice. EOMI EARS, NOSE, THROAT: MMM. NECK: No JVD appreciated LUNGS: Decreased BS at bases. Good inspiratory effort HEART: Irregularly irregular ns1s2 ABDOMEN: Obese, Tympanic. Nontender. Dilated periumbilical veins. No fluid wave MUSCULOSKELETAL: FROM throughout UPPER EXTREMITIES: No CCE. Ring finger left hand amputated LOWER EXTREMITIES: No CCE. Onychomycosis PSYCHIATRIC: Cooperative. Good eye contact. Appropriate mood and affect. SKIN: No rashes or lesions appreciated Laboratory Results - last 24 hr 06/29/18 06/29/18 06/29/18 18:00 18:00 22:07 WBC RBC Hgb Hct MCV MCH MCHC RDW Plt Count MPV Absolute Neuts (auto) Neutrophils % Neutrophils % (Manual) Band Neutrophils % Lymphocytes % Lymphocytes % (Manual) Monocytes % Monocytes % (Manual) Eosinophils % Eosinophils % (Manual) Basophils % Basophils % (Manual) Myelocytes % (Man) Promyelocytes % (Man) Blast Cells % (Manual) Nucleated RBC % Metamyelocytes Hypochromia Toxic Granulation Dohle Bodies Platelet Estimate Polychromasia Poikilocytosis Basophilic Stippling Anisocytosis Microcytosis Macrocytosis Spherocytes Sickle Cells Target Cells Tear Drop Cells Ovalocytes Stomatocytes Helmet Cells [place] Bodies [place] Rings Jovanny Cells Acanthocytes (Spur) Rouleaux Fragmented RBCs Schistocytes PT with INR INR Sodium Potassium Chloride Carbon Dioxide Anion Gap BUN Creatinine Creat Clearance w eGFR POC Glucometer 160 Random Glucose Calcium Phosphorus Magnesium Total Bilirubin 1.6 H Direct Bilirubin 1.2 H AST 2032 H ALT 2295 H Alkaline Phosphatase 228 H Creatine Kinase 86 Total Protein 5.8 L Albumin 2.5 L 06/30/18 06/30/18 06/30/18 05:46 06:00 06:00 WBC 10.8 H RBC 3.87 L Hgb 11.4 L Hct 33.3 L MCV 86.1 MCH 29.5 MCHC 34.3 RDW 16.3 H Plt Count 162 D MPV 9.5 Absolute Neuts (auto) 9.2 H Neutrophils % 85.0 H Neutrophils % (Manual) 85.4 H Band Neutrophils % 1.1 Lymphocytes % 7.3 L D Lymphocytes % (Manual) 3.1 L D Monocytes % 7.4 Monocytes % (Manual) 9 Eosinophils % 0.1 D Eosinophils % (Manual) 0.0 Basophils % 0.2 Basophils % (Manual) 0.0 Myelocytes % (Man) 0 D Promyelocytes % (Man) 0 Blast Cells % (Manual) 0 Nucleated RBC % 0 Metamyelocytes 0 D Hypochromia 0 Toxic Granulation 0 Dohle Bodies 0 Platelet Estimate Adequate Polychromasia 0 Poikilocytosis 0 Basophilic Stippling 0 Anisocytosis 0 Microcytosis 0 Macrocytosis 0 Spherocytes 0 Sickle Cells 0 Target Cells 0 Tear Drop Cells 0 Ovalocytes 0 Stomatocytes 0 Helmet Cells 0 [place] Bodies 0 [place] Rings 0 [place] Cells 0 Acanthocytes (Spur) 0 Rouleaux 0 Fragmented RBCs 0 Schistocytes 0 PT with INR INR Sodium 133 L Potassium 3.6 Chloride 98 Carbon Dioxide 26 Anion Gap 10 BUN 75 H Creatinine 2.6 H Creat Clearance w eGFR 23.41 POC Glucometer 161 Random Glucose 160 H Calcium 8.1 L Phosphorus 3.1 Magnesium 2.2 Total Bilirubin 1.4 H Direct Bilirubin AST 1152 H ALT 1649 H Alkaline Phosphatase 204 H Creatine Kinase Total Protein 5.1 L Albumin 2.4 L 06/30/18 06/30/18 06/30/18 06:00 06:00 06:00 WBC RBC Hgb Hct MCV MCH MCHC RDW Plt Count MPV Absolute Neuts (auto) Neutrophils % Neutrophils % (Manual) Band Neutrophils % Lymphocytes % Lymphocytes % (Manual) Monocytes % Monocytes % (Manual) Eosinophils % Eosinophils % (Manual) Basophils % Basophils % (Manual) Myelocytes % (Man) Promyelocytes % (Man) Blast Cells % (Manual) Nucleated RBC % Metamyelocytes Hypochromia Toxic Granulation Dohle Bodies Platelet Estimate Polychromasia Poikilocytosis Basophilic Stippling Anisocytosis Microcytosis Macrocytosis Spherocytes Sickle Cells Target Cells Tear Drop Cells Ovalocytes Stomatocytes Helmet Cells [place] Bodies [place] Rings Jovanny Cells Acanthocytes (Spur) Rouleaux Fragmented RBCs Schistocytes PT with INR 14.80 H INR 1.25 H Sodium Potassium Chloride Carbon Dioxide Anion Gap BUN Creatinine Creat Clearance w eGFR POC Glucometer Random Glucose Calcium Phosphorus Magnesium Total Bilirubin 1.5 H Direct Bilirubin 1.0 H AST 1142 H ALT 1713 H Alkaline Phosphatase 206 H Creatine Kinase 50 Total Protein 6.2 L Albumin 2.4 L 06/30/18 06/30/18 11:51 16:55 WBC RBC Hgb Hct MCV MCH MCHC RDW Plt Count MPV Absolute Neuts (auto) Neutrophils % Neutrophils % (Manual) Band Neutrophils % Lymphocytes % Lymphocytes % (Manual) Monocytes % Monocytes % (Manual) Eosinophils % Eosinophils % (Manual) Basophils % Basophils % (Manual) Myelocytes % (Man) Promyelocytes % (Man) Blast Cells % (Manual) Nucleated RBC % Metamyelocytes Hypochromia Toxic Granulation Dohle Bodies Platelet Estimate Polychromasia Poikilocytosis Basophilic Stippling Anisocytosis Microcytosis Macrocytosis Spherocytes Sickle Cells Target Cells Tear Drop Cells Ovalocytes Stomatocytes Helmet Cells [place] Bodies [place] Rings Jovanny Cells Acanthocytes (Spur) Rouleaux Fragmented RBCs Schistocytes PT with INR INR Sodium Potassium Chloride Carbon Dioxide Anion Gap BUN Creatinine Creat Clearance w eGFR POC Glucometer 188 245 Random Glucose Calcium Phosphorus Magnesium Total Bilirubin Direct Bilirubin AST ALT Alkaline Phosphatase Creatine Kinase Total Protein Albumin Active Medications Generic Name Dose Route Start Last Admin Trade Name Freq PRN Reason Stop Dose Admin Diltiazem HCl 10 mg 06/28/18 10:36 Cardizem Injection - IVPUSH Q4H PRN TACHYCARDIA Finasteride 5 mg 06/27/18 12:45 06/30/18 10:38 Proscar - PO 5 mg DAILY CEASAR Administration Piperacillin Sod/Tazobactam 100 mls @ 200 mls/hr 06/28/18 00:45 06/30/18 18: 13 Sod 4.5 gm/ Dextrose IVPB 200 mls/hr Q8H-IV CEASAR Administration Protocol Metronidazole 500 mg in 100 mls @ 100 mls/hr 06/28/18 10:00 06/30/18 18:13 Flagyl 500mg Premixed Ivpb - IVPB 100 mls/hr Q8H-IV CEASAR Administration Lactated Ringer's 1,000 ml in 1,000 mls @ 42 mls/hr 06/29/18 10:15 06/30/18 10:40 Lactated Ringers Solution IV Not Given ASDIR CEASAR Insulin Aspart 1 vial 06/27/18 11:00 06/30/18 17:09 Novolog Vial Sliding Scale - SQ 4 units ACHS CEASAR Administration Protocol Metoprolol Tartrate 25 mg 06/28/18 10:45 06/30/18 14:59 Lopressor - PO 25 mg TID CEASAR Administration Morphine Sulfate 2 mg 06/27/18 17:50 06/28/18 09:01 Morphine Sulfate IVPUSH 2 mg Q3H PRN Administration PAIN LEVEL 7 - 10 ASSESSMENT/PLAN: Pt is an 88 y/o gentleman ([place] ) with a significant past medical history of HLD, BPH, HTN, IDDM, A-fib (on Plavix), Lower extremity claudication , and SUGAR on CPAP who presented to [facility] due to chest pain and nausea. #Gallstone Pancreatitis CTAP--> Acute calculus cholecystitis. 3 mm CBD calculus seen at level of ampulla. CBD dilated at 0.8 cm. -Full liquid diet -S/P ERCP w/ Dr Smalls. Stent placement, sphincterotomy/papillotomy. Two stones removed from CBD successfully. -Surgery Consult- Dr Bradshaw on board -On Zosyn and Flagyl day 3. BCx + for Gram -Bacilli. Prelim report TRUNG Pt's Bun/Cr on admission: 44/1.5. Today 75/2.6 Dr Wilkins on board #HLD Will hold Statin in light of Transaminitis #BPH Continue Proscar 5 mg daily #IDDM Will start Levemir 20 U SQ AM in light of recently elevated BGMs Will start ISS #A-FIB A-fib with HR 108, Absent CARLOS MANUEL, STD. + L ant fasc. block. Absent Q waves. Nml R wave progression. -Not on any AC for unknown reason -[id number]--> 5-6 -Plavix/ASA on hold in light of anticipated surgery -Lopressor titrated up to 25 Q8H. -Diltiazem IVPUSH Q4H PRN for tachycardia > 120 BPM #HTN Will resume Lisinopril when Renal function WNL Withold Thiazides as known to cause pancreatitis. #SUGAR Continue CPAP #FEN No Fluids Monitor electrolytes Full Liquid diet #DVT ppx: Hep SQ TID on hold in light of sphincterotomy and increase risk of bleeding. SCD's. #Dispo Tele Visit type - Emergency Visit Emergency Visit: Yes ED Registration Date: 06/27/18 Care time: The patient presented to the Emergency Department on the above date and was hospitalized for further evaluation of their emergent condition. - New Patient This patient is new to me today: No - Critical Care Critical Care patient: No - Discharge Referral Referred to [facility] Med P.C.: No
--- NOTE | 2018-06-30 18:38 | PN ---
Progress Note (short form) - Note Progress Note: feels well had amanda placed for urinary retention no abdominal pain Vital Signs Period Temp Pulse Resp BP Sys/Murray Pulse Ox Last 24 Hr 98.0 F-98.7 F 62-85 20-20 99-129/47-75 95-99 cor-rrr lungs clear abd soft,nt ext no edema amanda CBC, BMP 06/30/18 06:00 06/30/18 06:00 Microbiology 06/27/18 17:00 Blood - Peripheral Venous Blood Culture - Preliminary Pending Organism 06/27/18 17:00 Blood - Peripheral Venous Blood Culture - Preliminary Pending Organism 06/27/18 23:06 Blood - Peripheral Venous Blood Culture - Preliminary Pending Organism 06/29/18 01:45 Urine - Urine - Catheterized Urine Culture - Final NO GROWTH OBTAINED imp/reccd gram negative sepsis- probable anaerobe continue zosyn/flagyl f/u cultures blood cultures repeated today s//p ercp-with sphincterotomy, s/p stone extraction and stent placement biliary sepsis cholycystitis/choledocholithiasis gallstone pancreatitis history afib danielle-reduce dose of zosyn f/u lfts in am Problem List - Problems (1) Biliary sepsis Code(s): K83.09 - OTHER CHOLANGITIS (2) Acute cholecystitis due to biliary calculus Code(s): K80.00 - CALCULUS OF GALLBLADDER W ACUTE CHOLECYST W/O OBSTRUCTION (3) Choledocholithiasis with acute cholecystitis Code(s): K80.42 - CALCULUS OF BILE DUCT W ACUTE CHOLECYSTITIS W/O OBSTRUCTION (4) CKD (chronic kidney disease) Code(s): N18.9 - CHRONIC KIDNEY DISEASE, UNSPECIFIED
--- NOTE | 2018-06-30 21:24 | PN ---
Progress Note, Physician Chief Complaint: ascending cholangitis and acute cholecystitis History of Present Illness: Patient is 2 days post ERCP. Had urinary retention requiring Mcneil insertion. Tolerating diet and denies abdominal pain. - Current Medication List Current Medications: Active Medications Diltiazem HCl (Cardizem Injection -) 10 mg IVPUSH Q4H PRN PRN Reason: TACHYCARDIA Finasteride (Proscar -) 5 mg PO DAILY [facility] Last Admin: 06/30/18 10:38 Dose: 5 mg Metronidazole (Flagyl 500mg Premixed Ivpb -) 500 mg in 100 mls @ 100 mls/hr IVPB Q8H-IV CEASAR Last Admin: 06/30/18 18:13 Dose: 100 mls/hr Lactated Ringer's (Lactated Ringers Solution) 1,000 ml in 1,000 mls @ 42 mls/ hr IV ASDIR [facility] Last Admin: 06/30/18 10:40 Dose: Not Given Piperacillin Sod/Tazobactam (Sod 3.375 gm/ Dextrose) 50 mls @ 100 mls/hr IVPB Q8H-IV CEASAR; Protocol Insulin Aspart (Novolog Vial Sliding Scale -) 1 vial SQ ACHS [facility]; Protocol Last Admin: 06/30/18 17:09 Dose: 4 units Metoprolol Tartrate (Lopressor -) 25 mg PO TID [facility] Last Admin: 06/30/18 14:59 Dose: 25 mg Morphine Sulfate (Morphine Sulfate) 2 mg IVPUSH Q3H PRN PRN Reason: PAIN LEVEL 7 - 10 Last Admin: 06/28/18 09:01 Dose: 2 mg - Objective Vital Signs: Vital Signs Temperature 98.4 F 06/30/18 18:00 Pulse Rate 69 06/30/18 18:00 Respiratory Rate 18 06/30/18 18:00 Blood Pressure 123/71 06/30/18 18:00 O2 Sat by Pulse Oximetry (%) 97 06/30/18 12:37 Constitutional: Yes: No Distress Eyes: Yes: WNL HENT: Yes: Normocephalic Gastrointestinal: Yes: Soft, Abdomen, Obese, Tenderness (no RUQ tenderness), Tenderness, Epigastrium (negative) Labs: CBC, BMP 06/30/18 06:00 06/30/18 06:00 INR, PTT INR 1.25 (0.83-1.09) H 06/30/18 06:00 Problem List - Problems (1) Biliary sepsis Assessment/Plan: MRI revealed acute cholecystitis and unremarkable CBD Patient is currently asymptomatic and tolerating diet. Patient is past the optimal period for cholecystectomy. The probability of encountering an edematous and "rock hard" gallbladder is high at this time. Surgical intervention at this time will be fraught with risk of excessive bleeding when planes of dissection is obscured and anatomy is distorted. The possibility of open surgery is also high with no guarantee of completely removing an abnormal GB. Advised interval cholecystectomy in 6 to 8 weeks when GB edema has subsided and the procedure will likely be safer and can be done laparoscopically. Discussed these recommendations to the patient and his . Code(s): K83.09 - OTHER CHOLANGITIS
[2018-07-01] MEDS ORDERED: PIPERACILLIN/TAZOBACTAM 3.375 GM VIAL IVPB ONE ×3 (02:17→17:00)
[2018-07-01] MEDS ORDERED: DEXTROSE 5%-WATER - 50 ML IVPB ONE ×3 (02:18→17:00)
[2018-07-01] MEDS: PIPERACILLIN/TAZOB 3.375 GM 3.375 GM in DEXTROSE 5%-WATER - 50 ML IVPB SCH ×3 (02:22→18:05)
[2018-07-01] MEDS: METOPROLOL TARTRATE 25 MG TABLET (FP) PO SCH ×3 (05:19→21:02)
[2018-07-01] MEDS: INSULIN SLIDING SCALE (NOVOLOG) 1 VIAL SQ SCH ×4 (06:00→21:02)
[2018-07-01 07:24] LABS: HEMATOCRIT 34.8 % (35.4-49); HEMOGLOBIN 11.9 GM/dL (11.7-16.9); MCH 29.7 pg (25.7-33.7); MCHC 34.3 g/dl (32.0-35.9); MEAN CELL VOLUME 86.7 fl (80-96); MEAN PLT VOLUME 9.6 fl (7.5-11.1); PLATELET COUNT 172 K/MM3 (134-434); RBC 4.01 M/mm3 (4.00-5.60); RDW 16.8 % (11.9-15.9); WHITE BLOOD COUNT 10.5 K/mm3 (4.0-10.0)
[2018-07-01 08:00] LABS: ALBUMIN 2.5 g/dl (3.4-5.0); ALK PHOS 202 U/L (45-117); ANION GAP 10 MMOL/L (8-16); BILIRUBIN,DIRECT 0.9 mg/dL (0.0-0.2); BILIRUBIN,TOTAL 1.6 mg/dL (0.2-1); BLOOD UREA NITROGEN 59 mg/dL (7-18); CALCIUM 8.4 mg/dL (8.5-10.1); CHLORIDE 101 mmol/L (98-107); CO2 26 mmol/L (21-32); CREATININE 2.1 mg/dL (0.55-1.3); GLUCOSE,RANDOM 192 mg/dL (74-106); MAGNESIUM 1.8 mg/dL (1.8-2.4); PHOSPHOROUS 2.9 mg/dL (2.5-4.9); POTASSIUM 3.7 mmol/L (3.5-5.1); SGOT/AST 405 U/L (15-37); SGPT/ALT 1239 U/L (13-61); SODIUM 137 mmol/L (136-145); TOT PROT 5.6 g/dl (6.4-8.2)
[2018-07-01] MEDS: FINASTERIDE 5 MG TABLET (FP) PO SCH (09:37)
--- NOTE | 2018-07-01 10:12 | PN ---
Progress Note, Physician History of Present Illness: Epigastric pain resolved, denies nausea or emesis, cp or dyspnea, afebrile. Tolerating soft diet. - Current Medication List Current Medications: Active Medications Diltiazem HCl (Cardizem Injection -) 10 mg IVPUSH Q4H PRN PRN Reason: TACHYCARDIA Finasteride (Proscar -) 5 mg PO DAILY [facility] Last Admin: 07/01/18 09:37 Dose: 5 mg Metronidazole (Flagyl 500mg Premixed Ivpb -) 500 mg in 100 mls @ 100 mls/hr IVPB Q8H-IV CEASAR Last Admin: 07/01/18 09:38 Dose: 100 mls/hr Lactated Ringer's (Lactated Ringers Solution) 1,000 ml in 1,000 mls @ 42 mls/ hr IV ASDIR [facility] Last Admin: 06/30/18 10:40 Dose: Not Given Piperacillin Sod/Tazobactam (Sod 3.375 gm/ Dextrose) 50 mls @ 100 mls/hr IVPB Q8H-IV CEASAR; Protocol Last Admin: 07/01/18 09:38 Dose: 100 mls/hr Insulin Aspart (Novolog Vial Sliding Scale -) 1 vial SQ ACHS [facility]; Protocol Last Admin: 07/01/18 06:00 Dose: 2 units Metoprolol Tartrate (Lopressor -) 25 mg PO TID [facility] Last Admin: 07/01/18 05:19 Dose: 25 mg Morphine Sulfate (Morphine Sulfate) 2 mg IVPUSH Q3H PRN PRN Reason: PAIN LEVEL 7 - 10 Last Admin: 06/28/18 09:01 Dose: 2 mg - Objective Vital Signs: Vital Signs Temperature 98.8 F 07/01/18 06:00 Pulse Rate 59 L 07/01/18 06:00 Respiratory Rate 18 07/01/18 06:00 Blood Pressure 147/75 07/01/18 06:00 O2 Sat by Pulse Oximetry (%) 95 06/30/18 21:00 Constitutional: Yes: No Distress, Calm Neck: Yes: Supple Cardiovascular: Yes: Regular Rate and Rhythm Respiratory: Yes: Regular, Diminished, On Nasal O2 Gastrointestinal: Yes: Normal Bowel Sounds, Soft, Abdomen, Obese Edema: No Labs: CBC, BMP 07/01/18 07:00 07/01/18 06:30 INR, PTT INR 1.25 (0.83-1.09) H 06/30/18 06:00 - ....Imaging EKG: Report Reviewed (Tele: NSR) Problem List - Problems (1) Acute cholecystitis due to biliary calculus Code(s): K80.00 - CALCULUS OF GALLBLADDER W ACUTE CHOLECYST W/O OBSTRUCTION (2) Atrial fibrillation with RVR Code(s): I48.91 - UNSPECIFIED ATRIAL FIBRILLATION (3) Pancreatitis Code(s): K85.90 - ACUTE PANCREATITIS WITHOUT NECROSIS OR INFECTION, UNSP Qualifiers: Chronicity: acute Pancreatitis type: unspecified pancreatitis type Acute pancreatitis complication: unspecified Qualified Code(s): K85.90 - Acute pancreatitis without necrosis or infection, unspecified (4) CKD (chronic kidney disease) Code(s): N18.9 - CHRONIC KIDNEY DISEASE, UNSPECIFIED (5) Demand ischemia Code(s): I24.8 - OTHER FORMS OF ACUTE ISCHEMIC HEART DISEASE (6) Hyperlipidemia Code(s): E78.5 - HYPERLIPIDEMIA, UNSPECIFIED Qualifiers: Hyperlipidemia type: pure hypercholesterolemia Qualified Code(s): E78.00 - Pure hypercholesterolemia, unspecified; E78.0 - Pure hypercholesterolemia Assessment/Plan 06/29/2018 MRCP: GS and sludge c/w acute cholecystitis without choledocholithiasis or biliary ductal dilatation 06/29/2018 Renal US: Large PVR >500 cc, no hydronephrosis 06/29/2018 Normal LV fxn, mild-mod LVH EF 57%, abnl LV compliance, normal RV size and fxn, normal biatrial sizes, mild MR, TR, dilated ao 4.9 cm 1. Acute calculus cholecystitis with GS pancreatits s/p ERCP stone retrieval, sphincterotomy and biliary stent placement 2. Biliary sepsis 3. CAD coronary artery calcification with demand ischemia 4. Diastolic LV dysfunction with clinical class 0 NYHA classification LV failure 5. Persistent atrial fibrillation with RVR [id number] score of 5-6 on no A/C 6. HTN 7. DM 8. Hypercholesterolemia 9. 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 Bladder outlet obstruction PLAN: 1. Continue current medications including Metoprolol 25 PO tid. Cardizem IV can be given when needed for additional rate control 2. Resume Lisinopril therapy once renal function at baseline with caution 3. Withhold HCTZ and statin therapy for now, IVF, amanda, monitor renal recovery 4. Start Eliquis 2.5 bid considering [id number] score of 5-6 now that post- procedure hemostasis achieved 5. Surgery input appreciated and recommended lap cholecystectomy in 6-8 weeks, LFTs trending downwards, maintain on abx to cover biliary sepsis per C&S 6. 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 Melo Myers CD/Fabiola Hernandez
[2018-07-01 11:31] LABS: HBSAG SCREEN Negative (Negative); HEP A AB, IGM Negative (Negative); HEP B CORE AB, TOT Negative (Negative)
[2018-07-01] MEDS: LACTATED RINGERS SOLUTION 1,000 ML/1,000 ML INFUS.BAG IV SCH (13:25)
--- NOTE | 2018-07-01 13:28 | PN ---
Progress Note, Physician History of Present Illness: Pt seen and examined at bedside. He is awake and alert. He denies shortness of breath. - Current Medication List Current Medications: Active Medications Apixaban (Eliquis -) 2.5 mg PO BID [facility] Diltiazem HCl (Cardizem Injection -) 10 mg IVPUSH Q4H PRN PRN Reason: TACHYCARDIA Finasteride (Proscar -) 5 mg PO DAILY [facility] Last Admin: 07/01/18 09:37 Dose: 5 mg Metronidazole (Flagyl 500mg Premixed Ivpb -) 500 mg in 100 mls @ 100 mls/hr IVPB Q8H-IV CEASAR Last Admin: 07/01/18 09:38 Dose: 100 mls/hr Lactated Ringer's (Lactated Ringers Solution) 1,000 ml in 1,000 mls @ 42 mls/ hr IV ASDIR [facility] Last Admin: 07/01/18 13:25 Dose: Not Given Piperacillin Sod/Tazobactam (Sod 3.375 gm/ Dextrose) 50 mls @ 100 mls/hr IVPB Q8H-IV CEASAR; Protocol Last Admin: 07/01/18 09:38 Dose: 100 mls/hr Insulin Aspart (Novolog Vial Sliding Scale -) 1 vial SQ ACHS [facility]; Protocol Last Admin: 07/01/18 12:24 Dose: Not Given Metoprolol Tartrate (Lopressor -) 25 mg PO TID [facility] Last Admin: 07/01/18 05:19 Dose: 25 mg Morphine Sulfate (Morphine Sulfate) 2 mg IVPUSH Q3H PRN PRN Reason: PAIN LEVEL 7 - 10 Last Admin: 06/28/18 09:01 Dose: 2 mg - Objective Vital Signs: Vital Signs Temperature 98.8 F 07/01/18 06:00 Pulse Rate 59 L 07/01/18 06:00 Respiratory Rate 18 07/01/18 10:00 Blood Pressure 147/75 07/01/18 06:00 O2 Sat by Pulse Oximetry (%) 96 07/01/18 10:00 Constitutional: Yes: Calm Eyes: Yes: Conjunctiva Clear HENT: Yes: Atraumatic Cardiovascular: Yes: S1, S2 Respiratory: Yes: CTA Bilaterally Gastrointestinal: Yes: Soft, Abdomen, Obese Genitourinary: Yes: Amanda Present Musculoskeletal: Yes: WNL Edema: No Neurological: Yes: Oriented Psychiatric: Yes: Oriented Labs: CBC, BMP 07/01/18 07:00 07/01/18 06:30 INR, PTT INR 1.25 (0.83-1.09) H 06/30/18 06:00 Problem List - Problems (1) TRUNG (acute kidney injury) Code(s): N17.9 - ACUTE KIDNEY FAILURE, UNSPECIFIED (2) Acute cholecystitis due to biliary calculus Code(s): K80.00 - CALCULUS OF GALLBLADDER W ACUTE CHOLECYST W/O OBSTRUCTION (3) Atrial fibrillation with RVR Code(s): I48.91 - UNSPECIFIED ATRIAL FIBRILLATION (4) CKD (chronic kidney disease) Code(s): N18.9 - CHRONIC KIDNEY DISEASE, UNSPECIFIED (5) HTN (hypertension) Code(s): I10 - ESSENTIAL (PRIMARY) HYPERTENSION Qualifiers: Hypertension type: essential hypertension Qualified Code(s): I10 - Essential (primary) hypertension (6) Pancreatitis Code(s): K85.90 - ACUTE PANCREATITIS WITHOUT NECROSIS OR INFECTION, UNSP Qualifiers: Chronicity: acute Pancreatitis type: unspecified pancreatitis type Acute pancreatitis complication: unspecified Qualified Code(s): K85.90 - Acute pancreatitis without necrosis or infection, unspecified Assessment/Plan Current Medications Generic Name Dose Route Start Last Admin Trade Name Freq PRN Reason Stop Dose Admin Apixaban 2.5 mg 07/01/18 22:00 Eliquis - PO BID CEASAR Diltiazem HCl 10 mg 06/28/18 10:36 Cardizem Injection - IVPUSH Q4H PRN TACHYCARDIA Finasteride 5 mg 06/27/18 12:45 07/01/18 09:37 Proscar - PO 5 mg DAILY CEASAR Administration Metronidazole 500 mg in 100 mls @ 100 mls/hr 06/28/18 10:00 07/01/18 09:38 Flagyl 500mg Premixed Ivpb - IVPB 100 mls/hr Q8H-IV CEASAR Administration Lactated Ringer's 1,000 ml in 1,000 mls @ 42 mls/hr 06/29/18 10:15 07/01/18 13:25 Lactated Ringers Solution IV Not Given ASDIR CEASAR Piperacillin Sod/Tazobactam 50 mls @ 100 mls/hr 07/01/18 02:00 07/01/18 09:38 Sod 3.375 gm/ Dextrose IVPB 100 mls/hr Q8H-IV CEASAR Administration Protocol Insulin Aspart 1 vial 06/27/18 11:00 07/01/18 12:24 Novolog Vial Sliding Scale - SQ Not Given ACHS CEASAR Protocol Metoprolol Tartrate 25 mg 06/28/18 10:45 07/01/18 05:19 Lopressor - PO 25 mg TID CEASAR Administration Morphine Sulfate 2 mg 06/27/18 17:50 06/28/18 09:01 Morphine Sulfate IVPUSH 2 mg Q3H PRN Administration PAIN LEVEL 7 - 10 Impression 1. TRUNG 2. CKD 3. pancreatitis 4. a-fib 5. DM 6. HTN Plan - renal function continues to improve - amanda in place and pt making urine - volume status stable for now - discussed plan with pt and - hold diuretics for now - diastolic dysfunction on echo
--- NOTE | 2018-07-01 13:47 | PN ---
Physical Exam: SUBJECTIVE: Patient seen and examined at bedside. No acute events overnight. OBJECTIVE: Vital Signs Period Temp Pulse Resp BP Sys/Murray Pulse Ox Last 24 Hr 97.9 F-98.8 F 59-88 18-20 120-155/53-75 95-96 GENERAL: NAD. Very Pleasant HEAD: atraumatic/ normocephalic EYES: Sclera Jaundice. EOMI EARS, NOSE, THROAT: MMM. NECK: No JVD appreciated LUNGS: Clear to auscultation B/L HEART: Irregularly irregular ns1s2 ABDOMEN: Obese, Tympanic. Nontender. Dilated periumbilical veins. No fluid wave MUSCULOSKELETAL: FROM throughout UPPER EXTREMITIES: No CCE. Ring finger left hand amputated LOWER EXTREMITIES: No CCE. Onychomycosis PSYCHIATRIC: Cooperative. Good eye contact. Appropriate mood and affect. SKIN: No rashes or lesions appreciated Laboratory Results - last 24 hr 06/30/18 06/30/18 06/30/18 06:00 16:55 22:00 WBC RBC Hgb Hct MCV MCH MCHC RDW Plt Count MPV Sodium Potassium Chloride Carbon Dioxide Anion Gap BUN Creatinine Creat Clearance w eGFR POC Glucometer 245 227 Random Glucose Calcium Phosphorus Magnesium Total Bilirubin Direct Bilirubin AST ALT Alkaline Phosphatase Troponin I Total Protein Albumin Hep A IgM Ab Confirm Negative Hepatitis A Ab Total Positive H Hep Bs Antigen Negative Hep Bs Antibody Non reactive Hep B Core Total Ab Negative Hep C Ab Diagnostic 0.1 07/01/18 07/01/18 07/01/18 05:21 06:30 07:00 WBC 10.5 H RBC 4.01 Hgb 11.9 Hct 34.8 L MCV 86.7 MCH 29.7 MCHC 34.3 RDW 16.8 H Plt Count 172 MPV 9.6 Sodium 137 Potassium 3.7 Chloride 101 Carbon Dioxide 26 Anion Gap 10 BUN 59 H Creatinine 2.1 H Creat Clearance w eGFR 29.95 POC Glucometer 183 Random Glucose 192 H Calcium 8.4 L Phosphorus 2.9 Magnesium 1.8 Total Bilirubin 1.6 H Direct Bilirubin 0.9 H AST 405 H ALT 1239 H Alkaline Phosphatase 202 H Troponin I 0.31 H Total Protein 5.6 L Albumin 2.5 L Hep A IgM Ab Confirm Hepatitis A Ab Total Hep Bs Antigen Hep Bs Antibody Hep B Core Total Ab Hep C Ab Diagnostic Active Medications Generic Name Dose Route Start Last Admin Trade Name Freq PRN Reason Stop Dose Admin Apixaban 2.5 mg 07/01/18 22:00 Eliquis - PO BID CEASAR Diltiazem HCl 10 mg 06/28/18 10:36 Cardizem Injection - IVPUSH Q4H PRN TACHYCARDIA Finasteride 5 mg 06/27/18 12:45 07/01/18 09:37 Proscar - PO 5 mg DAILY CEASAR Administration Metronidazole 500 mg in 100 mls @ 100 mls/hr 06/28/18 10:00 07/01/18 09:38 Flagyl 500mg Premixed Ivpb - IVPB 100 mls/hr Q8H-IV [facility] Administration Lactated Ringer's 1,000 ml in 1,000 mls @ 42 mls/hr 06/29/18 10:15 07/01/18 13:25 Lactated Ringers Solution IV Not Given ASDIR CEASAR Piperacillin Sod/Tazobactam 50 mls @ 100 mls/hr 07/01/18 02:00 07/01/18 09:38 Sod 3.375 gm/ Dextrose IVPB 100 mls/hr Q8H-IV [facility] Administration Protocol Insulin Aspart 1 vial 06/27/18 11:00 07/01/18 12:24 Novolog Vial Sliding Scale - SQ Not Given ACHS CEASAR Protocol Metoprolol Tartrate 25 mg 06/28/18 10:45 07/01/18 05:19 Lopressor - PO 25 mg TID CEASAR Administration Morphine Sulfate 2 mg 06/27/18 17:50 06/28/18 09:01 Morphine Sulfate IVPUSH 2 mg Q3H PRN Administration PAIN LEVEL 7 - 10 ASSESSMENT/PLAN: Pt is an 88 y/o gentleman ([place] ) with a significant past medical history of HLD, BPH, HTN, IDDM, A-fib (on Plavix), Lower extremity claudication , and SUGAR on CPAP who presented to [facility] due to chest pain and nausea. #Gallstone Pancreatitis CTAP--> Acute calculus cholecystitis. 3 mm CBD calculus seen at level of ampulla. CBD dilated at 0.8 cm. -Full liquid diet -S/P ERCP w/ Dr Smalls. Stent placement, sphincterotomy/papillotomy. Two stones removed from CBD successfully. -Surgery Consult- Dr Bradshaw on board--> will opt for Interval cholecystectomy as pt more prone to adverse effects of cholecystectomy at this juncture, i.e bleeding -On Zosyn and Flagyl day 4. BCx + for Gram -Bacilli. Prelim report TRUNG Pt's Bun/Cr on admission: 44/1.5. Today 59/2.1 Dr Wilkins on board #HLD Will hold Statin in light of Transaminitis #BPH Continue Proscar 5 mg daily #IDDM Will start Levemir 20 U SQ AM in light of recently elevated BGMs Will start ISS #A-FIB A-fib with HR 108, Absent CARLOS MANUEL, STD. + L ant fasc. block. Absent Q waves. Nml R wave progression. -Not on any AC for unknown reason -[id number]--> 5-6 -Lopressor titrated up to 25 Q8H. -Diltiazem IVPUSH Q4H PRN for tachycardia > 120 BPM #HTN Will resume Lisinopril when Renal function WNL Withold Thiazides as known to cause pancreatitis. #SUGAR Continue CPAP #FEN LR@42cc/hr Monitor electrolytes Soft Diet #DVT ppx: Eliquis 2.5 MG #Dispo Tele Visit type - Emergency Visit Emergency Visit: Yes ED Registration Date: 06/27/18 Care time: The patient presented to the Emergency Department on the above date and was hospitalized for further evaluation of their emergent condition. - New Patient This patient is new to me today: No - Critical Care Critical Care patient: No - Discharge Referral Referred to [facility] No
--- NOTE | 2018-07-01 15:14 | PN ---
Teaching Attending Note Name of Resident: Jarret Pereira ATTENDING PHYSICIAN STATEMENT I saw and evaluated the patient. I reviewed the resident's note and discussed the case with the resident. I agree with the resident's findings and plan as documented. SUBJECTIVE: No fever or chills. No abd pain. No LOBO , no fever or chills OBJECTIVE: NAD , awake, pleasant, and cooperative CV: RRR, no MRG Lungs: CTAB Ext : no edema or erythema Abd: obese, soft, NT, ND , NL BS ASSESSMENT AND PLAN: 88 y/o man with h/o A fib, DM , CKD, HTN, diastolic heart failure, who presented with abd pain and was found to have acute pancreatitis, cholecystitis with cholangitis and bacteremia. hospital stay was complicated by episode of A fib with VR 1- Acute gall stone pancreatitis: improved 2- Acute cholangitis with anaerobic bacteremia: s/p ERCP and stone extraction. - follow repeat blood cx - follow identification and sensitivity - cont zosyn and flagyl - Surgery input noted. CCy in 6-8 weeks - cont careful IVF 3- A fib: high CHADSVASC score - since CCY is not planned this admission, eliquis was started . - I explained to patient his AC options ( coumadin , NOacs, and Lovenox), he chose NOACs. He understands the risk of bleeding with Ac including spinal bleed with Eliquis . he also understand the risk of stroke without AC. - cont metoprolol 4- H/o diastolic heart failure, stable on IVF 5- TRUNG: imporved on IVF and after inserting amanda - cont hydration and monitor 6- DVT PX: Scds and eliquis
--- NOTE | 2018-07-01 16:02 | PN ---
GI Progress Note Subjective: No acute events No abdominal pain Found sitting up in chair comfortably - Objective Vital Signs: Vital Signs Temperature 98.8 F 07/01/18 06:00 Pulse Rate 59 L 07/01/18 06:00 Respiratory Rate 18 07/01/18 10:00 Blood Pressure 147/75 07/01/18 06:00 O2 Sat by Pulse Oximetry (%) 96 07/01/18 10:00 Constitutional: Calm Eyes: No: Sclera Icterus Neck: Yes: Supple Cardiovascular: Yes: Pulse Irregular (regular rate) Respiratory: Yes: CTA Bilaterally Gastrointestinal Inspection: No: Distention ...Auscultate: Yes: Normoactive Bowel Sounds ...Palpate: No: Tenderness ...Percussion: No: Tympanitic Edema: No Neurological: Yes: Alert Labs: CBC, BMP 07/01/18 07:00 07/01/18 06:30 INR, PTT INR 1.25 (0.83-1.09) H 06/30/18 06:00 Hepatic Panel Total Bilirubin 1.6 mg/dL (0.2-1) H 07/01/18 06:30 Direct Bilirubin 0.9 mg/dL (0.0-0.2) H 07/01/18 06:30 AST 405 U/L (15-37) H 07/01/18 06:30 ALT 1239 U/L (13-61) H 07/01/18 06:30 Alkaline Phosphatase 202 U/L (45-117) H 07/01/18 06:30 Albumin 2.5 g/dl (3.4-5.0) L 07/01/18 06:30 Laboratory Tests 06/30/18 06:00 Hep A IgM Ab Confirm Negative Hepatitis A Ab Total Positive H Hep Bs Antigen Negative Hep Bs Antibody Non reactive Hep B Core Total Ab Negative Hep C Ab Diagnostic 0.1 Problem List - Problems (1) Choledocholithiasis with acute cholecystitis Assessment/Plan: Transaminases and ALP continue to improve with mild elevation of total bilirubin. Clinically improved Suspect component of ischemic hepatopathy post procedure in setting of sepsis as well Continuing to moitor LFTs Avoid hepatotoxic agents Surgery following: timing of cholecystectomy per surgery and when patient optimized medically Code(s): K80.42 - CALCULUS OF BILE DUCT W ACUTE CHOLECYSTITIS W/O OBSTRUCTION
[2018-07-01] MEDS ORDERED: PT OWN MED DRAWER 7, Y5N ONE (17:40)
[2018-07-01] MEDS ORDERED: ALBUTEROL SO4 2.5/IPRATROPIUM 0.5 INH SOL 3 ML VIAL.NEB. NEB ONE (20:24)
[2018-07-01] MEDS: APIXABAN 2.5 MG TABLET PO SCH (21:02)
[2018-07-01] MEDS ORDERED: BENZOCAINE/MENTH/CETYLPYRD CL 1 EACH LOZENGE MM PRN (21:04)
[2018-07-02] MEDS ORDERED: PIPERACILLIN/TAZOBACTAM 3.375 GM VIAL IVPB ONE ×2 (01:00→09:10)
[2018-07-02] MEDS ORDERED: DEXTROSE 5%-WATER - 50 ML IVPB ONE ×2 (01:01→09:10)
[2018-07-02] MEDS: LACTATED RINGERS SOLUTION 1,000 ML/1,000 ML INFUS.BAG IV SCH ×2 (01:08→12:07)
[2018-07-02] MEDS: PIPERACILLIN/TAZOB 3.375 GM 3.375 GM in DEXTROSE 5%-WATER - 50 ML IVPB SCH ×2 (02:14→09:22)
[2018-07-02] MEDS: METOPROLOL TARTRATE 25 MG TABLET (FP) PO SCH ×3 (06:06→23:21)
[2018-07-02] MEDS: INSULIN SLIDING SCALE (NOVOLOG) 1 VIAL SQ SCH ×4 (06:08→23:21)
[2018-07-02 06:43] LABS: BASO % 0.7 % (0-2.0); EOS % 1.3 % (0-4.5); HEMATOCRIT 36.4 % (35.4-49); HEMOGLOBIN 12.5 GM/dL (11.7-16.9); LYMPH % 9.8 % (8-40); MCH 30.1 pg (25.7-33.7); MCHC 34.4 g/dl (32.0-35.9); MEAN CELL VOLUME 87.7 fl (80-96); MEAN PLT VOLUME 9.4 fl (7.5-11.1); MONO % 11.3 % (3.8-10.2); NEUT % 76.9 % (42.8-82.8); PLATELET COUNT 208 K/MM3 (134-434); RBC 4.15 M/mm3 (4.00-5.60); RDW 16.1 % (11.9-15.9); WHITE BLOOD COUNT 11.9 K/mm3 (4.0-10.0)
[2018-07-02 08:10] LABS: ALBUMIN 2.5 g/dl (3.4-5.0); ALK PHOS 185 U/L (45-117); ANION GAP 6 MMOL/L (8-16); BILIRUBIN,DIRECT 0.8 mg/dL (0.0-0.2); BILIRUBIN,TOTAL 1.4 mg/dL (0.2-1); BLOOD UREA NITROGEN 41 mg/dL (7-18); CALCIUM 8.4 mg/dL (8.5-10.1); CHLORIDE 101 mmol/L (98-107); CO2 28 mmol/L (21-32); CREATININE 1.6 mg/dL (0.55-1.3); GLUCOSE,RANDOM 230 mg/dL (74-106); MAGNESIUM 1.9 mg/dL (1.8-2.4); PHOSPHOROUS 2.4 mg/dL (2.5-4.9); POTASSIUM 3.7 mmol/L (3.5-5.1); SGOT/AST 148 U/L (15-37); SGPT/ALT 841 U/L (13-61); SODIUM 136 mmol/L (136-145); TOT PROT 5.6 g/dl (6.4-8.2)
[2018-07-02] MEDS: APIXABAN 2.5 MG TABLET PO SCH ×2 (09:22→23:21)
[2018-07-02] MEDS: FINASTERIDE 5 MG TABLET (FP) PO SCH (09:22)
--- NOTE | 2018-07-02 10:01 | PN ---
Progress Note, Physician History of Present Illness: Epigastric pain resolved, denies nausea or emesis, cp or dyspnea, afebrile. Tolerating soft diet. - Current Medication List Current Medications: Active Medications Apixaban (Eliquis -) 2.5 mg PO BID [facility] Last Admin: 07/02/18 09:22 Dose: 2.5 mg Benzocaine/Menthol (Cepacol Lozenge -) 1 each MM Q2H PRN PRN Reason: SORE THROAT Diltiazem HCl (Cardizem Injection -) 10 mg IVPUSH Q4H PRN PRN Reason: TACHYCARDIA Finasteride (Proscar -) 5 mg PO DAILY [facility] Last Admin: 07/02/18 09:22 Dose: 5 mg Metronidazole (Flagyl 500mg Premixed Ivpb -) 500 mg in 100 mls @ 100 mls/hr IVPB Q8H-IV [facility] Last Admin: 07/02/18 09:23 Dose: 100 mls/hr Lactated Ringer's (Lactated Ringers Solution) 1,000 ml in 1,000 mls @ 42 mls/ hr IV ASDIR [facility] Last Admin: 07/02/18 01:08 Dose: 42 mls/hr Piperacillin Sod/Tazobactam (Sod 3.375 gm/ Dextrose) 50 mls @ 100 mls/hr IVPB Q8H-IV [facility]; Protocol Last Admin: 07/02/18 09:22 Dose: 100 mls/hr Insulin Aspart (Novolog Vial Sliding Scale -) 1 vial SQ ACHS [facility]; Protocol Last Admin: 07/02/18 06:08 Dose: 4 units Metoprolol Tartrate (Lopressor -) 25 mg PO TID [facility] Last Admin: 07/02/18 06:06 Dose: 25 mg Morphine Sulfate (Morphine Sulfate) 2 mg IVPUSH Q3H PRN PRN Reason: PAIN LEVEL 7 - 10 Last Admin: 06/28/18 09:01 Dose: 2 mg - Objective Vital Signs: Vital Signs Temperature 98.3 F 07/02/18 07:22 Pulse Rate 69 07/02/18 07:22 Respiratory Rate 18 07/02/18 07:22 Blood Pressure 149/84 07/02/18 07:22 O2 Sat by Pulse Oximetry (%) 95 07/01/18 22:47 Constitutional: Yes: No Distress, Calm Neck: Yes: Supple Cardiovascular: Yes: Regular Rate and Rhythm Respiratory: Yes: Regular, Diminished, On Nasal O2 Gastrointestinal: Yes: Normal Bowel Sounds, Soft, Abdomen, Obese Genitourinary: Yes: Amanda Present Edema: No Labs: CBC, BMP 07/02/18 06:00 07/02/18 06:00 INR, PTT INR 1.25 (0.83-1.09) H 06/30/18 06:00 - ....Imaging EKG: Report Reviewed (Tele: NSR PAC) Problem List - Problems (1) Acute cholecystitis due to biliary calculus Code(s): K80.00 - CALCULUS OF GALLBLADDER W ACUTE CHOLECYST W/O OBSTRUCTION (2) Atrial fibrillation with RVR Code(s): I48.91 - UNSPECIFIED ATRIAL FIBRILLATION (3) Pancreatitis Code(s): K85.90 - ACUTE PANCREATITIS WITHOUT NECROSIS OR INFECTION, UNSP Qualifiers: Chronicity: acute Pancreatitis type: unspecified pancreatitis type Acute pancreatitis complication: unspecified Qualified Code(s): K85.90 - Acute pancreatitis without necrosis or infection, unspecified (4) CKD (chronic kidney disease) Code(s): N18.9 - CHRONIC KIDNEY DISEASE, UNSPECIFIED (5) Demand ischemia Code(s): I24.8 - OTHER FORMS OF ACUTE ISCHEMIC HEART DISEASE (6) Hyperlipidemia Code(s): E78.5 - HYPERLIPIDEMIA, UNSPECIFIED Qualifiers: Hyperlipidemia type: pure hypercholesterolemia Qualified Code(s): E78.00 - Pure hypercholesterolemia, unspecified; E78.0 - Pure hypercholesterolemia Assessment/Plan 06/29/2018 MRCP: GS and sludge c/w acute cholecystitis without choledocholithiasis or biliary ductal dilatation 06/29/2018 Renal US: Large PVR >500 cc, no hydronephrosis 06/29/2018 Normal LV fxn, mild-mod LVH EF 57%, abnl LV compliance, normal RV size and fxn, normal biatrial sizes, mild MR, TR, dilated ao 4.9 cm 1. Acute calculus cholecystitis with GS pancreatits s/p ERCP stone retrieval, sphincterotomy and biliary stent placement 2. Biliary gram negative sepsis- probable anaerobe-bacteroides 3. CAD coronary artery calcification with demand ischemia 4. Diastolic LV dysfunction with clinical class 0 NYHA classification LV failure 5. Persistent atrial fibrillation with RVR [id number] score of 5-6 on no A/C 6. HTN 7. DM 8. Hypercholesterolemia 9. 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 BPH with bladder outlet obstruction PLAN: 1. Continue current medications including Metoprolol 25 PO tid. Cardizem IV can be given when needed for additional rate control 2. Resume Lisinopril therapy once renal function at baseline with caution 3. Withhold HCTZ and statin therapy for now, d/c amanda with void trial, monitor renal recovery 4. Continue Eliquis 2.5 bid considering [id number] score of 5-6 now that post- procedure hemostasis achieved 5. Surgery input appreciated and recommended lap cholecystectomy in 6-8 weeks, LFTs trending downwards, maintain on abx to cover biliary sepsis per C&S 6. 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 Melo Myers CD/Fabiola Hernandez
--- NOTE | 2018-07-02 11:56 | PN ---
GI Progress Note Subjective: felt as though he was a bit confused last night, otherwise no acute events. Feels well this morning No abdominal pain - Objective Vital Signs: Vital Signs Temperature 98.3 F 07/02/18 07:22 Pulse Rate 69 07/02/18 07:22 Respiratory Rate 18 07/02/18 09:00 Blood Pressure 149/84 07/02/18 07:22 O2 Sat by Pulse Oximetry (%) 97 07/02/18 09:00 Constitutional: Calm Eyes: No: Sclera Icterus Cardiovascular: Yes: Pulse Irregular (regular rate) Respiratory: Yes: Diminished (at bases bilaterally) Gastrointestinal Inspection: No: Distention ...Auscultate: Yes: Normoactive Bowel Sounds ...Palpate: No: Tenderness Edema: No (No LE edema) Neurological: Yes: Alert Labs: CBC, BMP 07/02/18 06:00 07/02/18 06:00 INR, PTT INR 1.25 (0.83-1.09) H 06/30/18 06:00 Hepatic Panel Total Bilirubin 1.4 mg/dL (0.2-1) H 07/02/18 06:00 Direct Bilirubin 0.8 mg/dL (0.0-0.2) H 07/02/18 06:00 AST 148 U/L (15-37) H 07/02/18 06:00 ALT 841 U/L (13-61) H 07/02/18 06:00 Alkaline Phosphatase 185 U/L (45-117) H 07/02/18 06:00 Albumin 2.5 g/dl (3.4-5.0) L 07/02/18 06:00 INR, PTT INR 1.25 (0.83-1.09) H 06/30/18 06:00 Problem List - Problems (1) Choledocholithiasis with acute cholecystitis Assessment/Plan: LFTs continue to normalize Continue to monitor Avoid hepatotoxic agents Per ERCP report: Repeat ERCP needed in 3 months for stent removal and removal of any further CBD stones Code(s): K80.42 - CALCULUS OF BILE DUCT W ACUTE CHOLECYSTITIS W/O OBSTRUCTION
[2018-07-02 12:41] LABS: ANISOCYTOSIS 1+; MACROCYTOSIS 0; OVALOCYTE 1+; PLATELET ESTIMATE NORMAL
--- NOTE | 2018-07-02 12:42 | PN ---
Progress Note, Physician History of Present Illness: Pt seen and examined at bedside. He is awake and alert. He denies shortness of breath. - Current Medication List Current Medications: Active Medications Apixaban (Eliquis -) 2.5 mg PO BID [facility] Last Admin: 07/02/18 09:22 Dose: 2.5 mg Benzocaine/Menthol (Cepacol Lozenge -) 1 each MM Q2H PRN PRN Reason: SORE THROAT Diltiazem HCl (Cardizem Injection -) 10 mg IVPUSH Q4H PRN PRN Reason: TACHYCARDIA Finasteride (Proscar -) 5 mg PO DAILY [facility] Last Admin: 07/02/18 09:22 Dose: 5 mg Metronidazole (Flagyl 500mg Premixed Ivpb -) 500 mg in 100 mls @ 100 mls/hr IVPB Q8H-IV [facility] Last Admin: 07/02/18 09:23 Dose: 100 mls/hr Lactated Ringer's (Lactated Ringers Solution) 1,000 ml in 1,000 mls @ 42 mls/ hr IV ASDIR [facility] Last Admin: 07/02/18 12:07 Dose: Not Given Piperacillin Sod/Tazobactam (Sod 3.375 gm/ Dextrose) 50 mls @ 100 mls/hr IVPB Q8H-IV [facility]; Protocol Last Admin: 07/02/18 09:22 Dose: 100 mls/hr Insulin Aspart (Novolog Vial Sliding Scale -) 1 vial SQ ACHS [facility]; Protocol Last Admin: 07/02/18 12:09 Dose: 6 units Metoprolol Tartrate (Lopressor -) 25 mg PO TID [facility] Last Admin: 07/02/18 06:06 Dose: 25 mg Morphine Sulfate (Morphine Sulfate) 2 mg IVPUSH Q3H PRN PRN Reason: PAIN LEVEL 7 - 10 Last Admin: 06/28/18 09:01 Dose: 2 mg - Objective Vital Signs: Vital Signs Temperature 98.3 F 07/02/18 07:22 Pulse Rate 69 07/02/18 07:22 Respiratory Rate 18 07/02/18 09:00 Blood Pressure 149/84 07/02/18 07:22 O2 Sat by Pulse Oximetry (%) 97 07/02/18 09:00 Constitutional: Yes: Calm Eyes: Yes: Conjunctiva Clear HENT: Yes: Atraumatic Neck: Yes: Supple Cardiovascular: Yes: S1, S2 Respiratory: Yes: CTA Bilaterally Gastrointestinal: Yes: Soft, Abdomen, Obese Genitourinary: Yes: Mcneil Present Musculoskeletal: Yes: WNL Edema: No Neurological: Yes: Oriented Psychiatric: Yes: Oriented Labs: CBC, BMP 07/02/18 06:00 07/02/18 06:00 INR, PTT INR 1.25 (0.83-1.09) H 06/30/18 06:00 Problem List - Problems (1) TRUNG (acute kidney injury) Code(s): N17.9 - ACUTE KIDNEY FAILURE, UNSPECIFIED (2) Acute cholecystitis due to biliary calculus Code(s): K80.00 - CALCULUS OF GALLBLADDER W ACUTE CHOLECYST W/O OBSTRUCTION (3) Atrial fibrillation with RVR Code(s): I48.91 - UNSPECIFIED ATRIAL FIBRILLATION (4) CKD (chronic kidney disease) Code(s): N18.9 - CHRONIC KIDNEY DISEASE, UNSPECIFIED (5) HTN (hypertension) Code(s): I10 - ESSENTIAL (PRIMARY) HYPERTENSION Qualifiers: Hypertension type: essential hypertension Qualified Code(s): I10 - Essential (primary) hypertension (6) Pancreatitis Code(s): K85.90 - ACUTE PANCREATITIS WITHOUT NECROSIS OR INFECTION, UNSP Qualifiers: Chronicity: acute Pancreatitis type: unspecified pancreatitis type Acute pancreatitis complication: unspecified Qualified Code(s): K85.90 - Acute pancreatitis without necrosis or infection, unspecified Assessment/Plan Current Medications Generic Name Dose Route Start Last Admin Trade Name Freq PRN Reason Stop Dose Admin Apixaban 2.5 mg 07/01/18 22:00 07/02/18 09:22 Eliquis - PO 2.5 mg BID [facility] Administration Benzocaine/Menthol 1 each 07/01/18 21:04 Cepacol Lozenge - MM Q2H PRN SORE THROAT Diltiazem HCl 10 mg 06/28/18 10:36 Cardizem Injection - IVPUSH Q4H PRN TACHYCARDIA Finasteride 5 mg 06/27/18 12:45 07/02/18 09:22 Proscar - PO 5 mg DAILY [facility] Administration Metronidazole 500 mg in 100 mls @ 100 mls/hr 06/28/18 10:00 07/02/18 09:23 Flagyl 500mg Premixed Ivpb - IVPB 100 mls/hr Q8H-IV [facility] Administration Lactated Ringer's 1,000 ml in 1,000 mls @ 42 mls/hr 06/29/18 10:15 07/02/18 12:07 Lactated Ringers Solution IV Not Given ASDIR [facility] Piperacillin Sod/Tazobactam 50 mls @ 100 mls/hr 07/01/18 02:00 07/02/18 09:22 Sod 3.375 gm/ Dextrose IVPB 100 mls/hr Q8H-IV [facility] Administration Protocol Insulin Aspart 1 vial 06/27/18 11:00 07/02/18 12:09 Novolog Vial Sliding Scale - SQ 6 units ACHS [facility] Administration Protocol Metoprolol Tartrate 25 mg 06/28/18 10:45 07/02/18 06:06 Lopressor - PO 25 mg TID [facility] Administration Morphine Sulfate 2 mg 06/27/18 17:50 06/28/18 09:01 Morphine Sulfate IVPUSH 2 mg Q3H PRN Administration PAIN LEVEL 7 - 10 Impression 1. TRUNG 2. CKD 3. pancreatitis 4. a-fib 5. DM 6. HTN 7. chf diastolic Plan - voiding trial today - renal function is improving - can keep on fluids - replace phos - repeat labs in am - volume status stable for now - discussed plan with pt and - hold diuretics for now
--- NOTE | 2018-07-02 13:51 | PN ---
Physical Exam: SUBJECTIVE: Patient seen and examined at bedside. Was confused overnight per RN and spouse. OBJECTIVE: Vital Signs Period Temp Pulse Resp BP Sys/Murray Pulse Ox Last 24 Hr 97.8 F-98.3 F 62-71 18-20 124-149/62-84 95-97 GENERAL: Alert and oriented x 3, Very pleasant HEAD: atraumatic/ normocephalic EYES: Sclera Jaundice. EOMI EARS, NOSE, THROAT: MMM. NECK: No JVD appreciated LUNGS: Clear to auscultation B/L Good inspiratory effort HEART: Irregularly irregular ns1s2 ABDOMEN: Non tender, distended, bowel sounds audible all 4 quadrants MUSCULOSKELETAL: FROM throughout UPPER EXTREMITIES: No CCE. Ring finger left hand amputated LOWER EXTREMITIES: No CCE. Onychomycosis PSYCHIATRIC: Cooperative. Good eye contact. Appropriate mood and affect. SKIN: No rashes or lesions appreciated Laboratory Results - last 24 hr 07/01/18 07/01/18 07/02/18 16:50 21:01 00:05 WBC RBC Hgb Hct MCV MCH MCHC RDW Plt Count MPV Absolute Neuts (auto) Neutrophils % Neutrophils % (Manual) Band Neutrophils % Lymphocytes % Lymphocytes % (Manual) Monocytes % Monocytes % (Manual) Eosinophils % Eosinophils % (Manual) Basophils % Basophils % (Manual) Myelocytes % (Man) Promyelocytes % (Man) Blast Cells % (Manual) Nucleated RBC % Metamyelocytes Hypochromia Platelet Estimate Platelet Comment Polychromasia Poikilocytosis Anisocytosis Microcytosis Macrocytosis Spherocytes Ovalocytes Sodium Potassium Chloride Carbon Dioxide Anion Gap BUN Creatinine Creat Clearance w eGFR POC Glucometer 328 221 213 Random Glucose Calcium Phosphorus Magnesium Total Bilirubin Direct Bilirubin AST ALT Alkaline Phosphatase Total Protein Albumin 07/02/18 07/02/18 07/02/18 06:00 06:00 06:07 WBC 11.9 H RBC 4.15 Hgb 12.5 Hct 36.4 MCV 87.7 MCH 30.1 MCHC 34.4 RDW 16.1 H Plt Count 208 D MPV 9.4 Absolute Neuts (auto) 9.2 H Neutrophils % 76.9 Neutrophils % (Manual) 79.0 Band Neutrophils % 1.0 Lymphocytes % 9.8 D Lymphocytes % (Manual) 4.0 L D Monocytes % 11.3 H Monocytes % (Manual) 6 Eosinophils % 1.3 D Eosinophils % (Manual) 2.0 D Basophils % 0.7 D Basophils % (Manual) 0.0 Myelocytes % (Man) 0 Promyelocytes % (Man) 0 Blast Cells % (Manual) 0 Nucleated RBC % 0 Metamyelocytes 1 D Hypochromia 0 Platelet Estimate Normal Platelet Comment Present Polychromasia 1+ Poikilocytosis 0 Anisocytosis 1+ Microcytosis 1+ Macrocytosis 0 Spherocytes 1+ Ovalocytes 1+ Sodium 136 Potassium 3.7 Chloride 101 Carbon Dioxide 28 Anion Gap 6 L BUN 41 H Creatinine 1.6 H Creat Clearance w eGFR 41.00 POC Glucometer 215 Random Glucose 230 H Calcium 8.4 L Phosphorus 2.4 L Magnesium 1.9 Total Bilirubin 1.4 H Direct Bilirubin 0.8 H AST 148 H ALT 841 H Alkaline Phosphatase 185 H Total Protein 5.6 L Albumin 2.5 L 07/02/18 11:38 WBC RBC Hgb Hct MCV MCH MCHC RDW Plt Count MPV Absolute Neuts (auto) Neutrophils % Neutrophils % (Manual) Band Neutrophils % Lymphocytes % Lymphocytes % (Manual) Monocytes % Monocytes % (Manual) Eosinophils % Eosinophils % (Manual) Basophils % Basophils % (Manual) Myelocytes % (Man) Promyelocytes % (Man) Blast Cells % (Manual) Nucleated RBC % Metamyelocytes Hypochromia Platelet Estimate Platelet Comment Polychromasia Poikilocytosis Anisocytosis Microcytosis Macrocytosis Spherocytes Ovalocytes Sodium Potassium Chloride Carbon Dioxide Anion Gap BUN Creatinine Creat Clearance w eGFR POC Glucometer 268 Random Glucose Calcium Phosphorus Magnesium Total Bilirubin Direct Bilirubin AST ALT Alkaline Phosphatase Total Protein Albumin Active Medications Generic Name Dose Route Start Last Admin Trade Name Freq PRN Reason Stop Dose Admin Apixaban 2.5 mg 07/01/18 22:00 07/02/18 09:22 Eliquis - PO 2.5 mg BID CEASAR Administration Benzocaine/Menthol 1 each 07/01/18 21:04 Cepacol Lozenge - MM Q2H PRN SORE THROAT Diltiazem HCl 10 mg 06/28/18 10:36 Cardizem Injection - IVPUSH Q4H PRN TACHYCARDIA Finasteride 5 mg 06/27/18 12:45 07/02/18 09:22 Proscar - PO 5 mg DAILY CEASAR Administration Metronidazole 500 mg in 100 mls @ 100 mls/hr 06/28/18 10:00 07/02/18 09:23 Flagyl 500mg Premixed Ivpb - IVPB 100 mls/hr Q8H-IV CEASAR Administration Lactated Ringer's 1,000 ml in 1,000 mls @ 42 mls/hr 06/29/18 10:15 07/02/18 12:07 Lactated Ringers Solution IV Not Given ASDIR CEASAR Piperacillin Sod/Tazobactam 50 mls @ 100 mls/hr 07/01/18 02:00 07/02/18 09:22 Sod 3.375 gm/ Dextrose IVPB 100 mls/hr Q8H-IV CEASAR Administration Protocol Insulin Aspart 1 vial 06/27/18 11:00 07/02/18 12:09 Novolog Vial Sliding Scale - SQ 6 units ACHS CEASAR Administration Protocol Metoprolol Tartrate 25 mg 06/28/18 10:45 07/02/18 13:40 Lopressor - PO 25 mg TID CEASAR Administration Morphine Sulfate 2 mg 06/27/18 17:50 06/28/18 09:01 Morphine Sulfate IVPUSH 2 mg Q3H PRN Administration PAIN LEVEL 7 - 10 ASSESSMENT/PLAN: Pt is an 88 y/o gentleman ([employer] [place]) with a significant past medical history of HLD, BPH, HTN, IDDM, A-fib (on Plavix), Lower extremity claudication , and SUGAR on CPAP who presented to [facility] due to chest pain and nausea. #Gallstone Pancreatitis CTAP--> Acute calculus cholecystitis. 3 mm CBD calculus seen at level of ampulla. CBD dilated at 0.8 cm. -Full liquid diet -S/P ERCP w/ Dr Smalls. Stent placement, sphincterotomy/papillotomy. Two stones removed from CBD successfully. -Surgery Consult- Dr Bradshaw on board--> will opt for Interval cholecystectomy as pt more prone to adverse effects of cholecystectomy at this juncture, i.e bleeding -On Zosyn and Flagyl day 5. BCx + Bacteroides Distasonis. -AST/ALT 148/841 respectively. Trending down. TRUNG Pt's Bun/Cr on admission: 44/1.5. Today 41/1.6 Dr Wilkins on board #HLD Will hold Statin in light of Transaminitis #BPH Continue Proscar 5 mg daily #IDDM Will start Levemir 20 U SQ AM in light of recently elevated BGMs Will start ISS #A-FIB A-fib with HR 108, Absent CARLOS MANUEL, STD. + L ant fasc. block. Absent Q waves. Nml R wave progression. -Not on any AC for unknown reason -[id number]--> 5-6 -Lopressor titrated up to 25 Q8H. -Diltiazem IVPUSH Q4H PRN for tachycardia > 120 BPM #HTN Will resume Lisinopril when Renal function WNL Withold Thiazides as known to cause pancreatitis. #SUGAR Continue CPAP #FEN LR@42cc/hr Monitor electrolytes Soft Diet #DVT ppx: Eliquis 2.5 MG #Dispo Tele Visit type - Emergency Visit Emergency Visit: Yes ED Registration Date: 06/27/18 Care time: The patient presented to the Emergency Department on the above date and was hospitalized for further evaluation of their emergent condition. - New Patient This patient is new to me today: No - Critical Care Critical Care patient: No - Discharge Referral Referred to [facility] Med [facility] No
--- NOTE | 2018-07-02 15:54 | PN ---
Progress Note (short form) - Note Progress Note: feels well amanda out no abdominal pain Vital Signs Period Temp Pulse Resp BP Sys/Murray Pulse Ox Last 24 Hr 97.8 F-98.8 F 62-71 18-20 124-149/62-84 95-97 cor-rrr lungs clear abd soft,nt ext no edema CBC, BMP 07/02/18 06:00 07/02/18 06:00 Microbiology 06/30/18 18:00 Blood - Peripheral Venous Blood Culture - Preliminary NO GROWTH OBTAINED AFTER 24 HOURS, INCUBATION TO CONTINUE FOR 4 DAYS. 06/30/18 17:00 Blood - Peripheral Venous Blood Culture - Preliminary NO GROWTH OBTAINED AFTER 24 HOURS, INCUBATION TO CONTINUE FOR 4 DAYS. 06/27/18 23:06 Blood - Peripheral Venous Blood Culture - Final Bacteroides Distasonis 06/27/18 17:00 Blood - Peripheral Venous Blood Culture - Preliminary Anaerobic Gram Neg Bacilli 06/27/18 17:00 Blood - Peripheral Venous Blood Culture - Preliminary Anaerobic Gram Neg Bacilli 06/29/18 01:45 Urine - Urine - Catheterized Urine Culture - Final NO GROWTH OBTAINED Current Medications Apixaban (Eliquis -) 2.5 mg PO BID [facility] Last Admin: 07/02/18 09:22 Dose: 2.5 mg Benzocaine/Menthol (Cepacol Lozenge -) 1 each MM Q2H PRN PRN Reason: SORE THROAT Diltiazem HCl (Cardizem Injection -) 10 mg IVPUSH Q4H PRN PRN Reason: TACHYCARDIA Finasteride (Proscar -) 5 mg PO DAILY [facility] Last Admin: 07/02/18 09:22 Dose: 5 mg Metronidazole (Flagyl 500mg Premixed Ivpb -) 500 mg in 100 mls @ 100 mls/hr IVPB Q8H-IV [facility] Last Admin: 07/02/18 09:23 Dose: 100 mls/hr Piperacillin Sod/Tazobactam (Sod 3.375 gm/ Dextrose) 50 mls @ 100 mls/hr IVPB Q8H-IV [facility]; Protocol Last Admin: 07/02/18 09:22 Dose: 100 mls/hr Insulin Aspart (Novolog Vial Sliding Scale -) 1 vial SQ ACHS [facility]; Protocol Last Admin: 07/02/18 12:09 Dose: 6 units Metoprolol Tartrate (Lopressor -) 25 mg PO TID [facility] Last Admin: 07/02/18 13:40 Dose: 25 mg Morphine Sulfate (Morphine Sulfate) 2 mg IVPUSH Q3H PRN PRN Reason: PAIN LEVEL 7 - 10 Last Admin: 06/28/18 09:01 Dose: 2 mg Potassium Phos/Sodium Phos (Phos-Nak Packet -) 1 packet PO TID [facility] Stop: 07/03/18 14:01 imp/reccd gram negative sepsis- probable anaerobe-bacteroides continue flagyl, switch to rocephin repeat blood cultures negative s//p ercp-with sphincterotomy, s/p stone extraction and stent placement biliary sepsis cholycystitis-on hold now history afib reanl function improving Problem List - Problems (1) Biliary sepsis Code(s): K83.09 - OTHER CHOLANGITIS (2) Acute cholecystitis due to biliary calculus Code(s): K80.00 - CALCULUS OF GALLBLADDER W ACUTE CHOLECYST W/O OBSTRUCTION (3) Choledocholithiasis with acute cholecystitis Code(s): K80.42 - CALCULUS OF BILE DUCT W ACUTE CHOLECYSTITIS W/O OBSTRUCTION (4) CKD (chronic kidney disease) Code(s): N18.9 - CHRONIC KIDNEY DISEASE, UNSPECIFIED
[2018-07-02] MEDS ORDERED: CEFTRIAXONE 2 GM-D5W BAG 2 GM/50 ML BAG IVPB SCH (16:00)
[2018-07-02] MEDS ORDERED: DEXTROSE 5%-WATER 100 ML IVPB ONE (16:20)
[2018-07-02] MEDS: NAPH,MB-DB/K PH,MBDB POWDER PACKET PO SCH ×2 (16:34→23:21)
[2018-07-02] MEDS: CEFTRIAXONE 2 GM in DEXTROSE 5%-WATER 100 ML IVPB SCH (16:34)
--- NOTE | 2018-07-02 17:24 | PN ---
Teaching Attending Note Name of Resident: Jarret Pereira ATTENDING PHYSICIAN STATEMENT I saw and evaluated the patient. I reviewed the resident's note and discussed the case with the resident. I agree with the resident's findings and plan as documented. SUBJECTIVE: No fever or chills . No abd pain , no LOBO , no SOB . last night he was confused and was short or breath and had wheezing nebs were given OBJECTIVE: NAD , awake, pleasant, and cooperative CV: RRR, no MRG Lungs: scattered wheezing Ext : no edema or erythema Abd: obese, soft, NT, ND , NL BS ASSESSMENT AND PLAN: 88 y/o man with h/o A fib, DM , CKD, HTN, diastolic heart failure, who presented with abd pain and was found to have acute pancreatitis, cholecystitis with cholangitis and bacteremia. hospital stay was complicated by episode of A fib with VR 1- Acute gall stone pancreatitis: improved. 2- Acute cholangitis with anaerobic bacteremia: s/p ERCP and stone extraction. - repeat blood cx with no growth - cont with ceftriaxone and flagyl. d/w ID. possible po abx on Thursday - CCy in 6-8 weeks - repeat ERCP in 3 months - DC IVF due to wheezing 3- A fib: high CHADSVASC score - cont BB and eliquis - cont metoprolol 4- H/o diastolic heart failure, stable on IVF 5- TRUNG: - Cr cont to improve - dc IVF due to wheezing - amanda out today . monitor 6- DVT PX: Scds and eliquis
[2018-07-02] MEDS ORDERED: INSULIN SLIDING SCALE (NOVOLOG) 1 VIAL SQ ONE (18:27)
--- NOTE | 2018-07-03 05:25 | PN ---
Physical Exam: SUBJECTIVE: Patient seen and examined at bed side , no acute events over night , BP slightly eelvated will strat Norvasc 2.5 lab trending doen . some elevation in WBC no fever chills, N/V/D/C, no abdominal pain OBJECTIVE: Vital Signs Period Temp Pulse Resp BP Sys/Murray Pulse Ox Last 24 Hr 97.4 F-99.6 F 67-97 18-20 90-150/70-84 92-98 GENERAL: Alert and oriented x 3, HEAD: atraumatic/ normocephalic EYES: EOMI EARS, NOSE, THROAT: MMM. NECK: No JVD appreciated LUNGS: Clear to auscultation B/L Good inspiratory effort HEART: Irregularly irregular ns1s2 ABDOMEN: Non tender, distended, bowel sounds audible all 4 quadrants MUSCULOSKELETAL: FROM throughout UPPER EXTREMITIES: No CCE. Ring finger left hand amputated LOWER EXTREMITIES: No CCE. Onychomycosis PSYCHIATRIC: Cooperative. Good eye contact. Appropriate mood and affect. SKIN: No rashes or lesions appreciated Laboratory Results - last 24 hr 07/02/18 07/02/18 07/02/18 06:00 06:00 06:07 WBC 11.9 H RBC 4.15 Hgb 12.5 Hct 36.4 MCV 87.7 MCH 30.1 MCHC 34.4 RDW 16.1 H Plt Count 208 D MPV 9.4 Absolute Neuts (auto) 9.2 H Neutrophils % 76.9 Neutrophils % (Manual) 79.0 Band Neutrophils % 1.0 Lymphocytes % 9.8 D Lymphocytes % (Manual) 4.0 L D Monocytes % 11.3 H Monocytes % (Manual) 6 Eosinophils % 1.3 D Eosinophils % (Manual) 2.0 D Basophils % 0.7 D Basophils % (Manual) 0.0 Myelocytes % (Man) 0 Promyelocytes % (Man) 0 Blast Cells % (Manual) 0 Nucleated RBC % 0 Metamyelocytes 1 D Hypochromia 0 Platelet Estimate Normal Platelet Comment Present Polychromasia 1+ Poikilocytosis 0 Anisocytosis 1+ Microcytosis 1+ Macrocytosis 0 Spherocytes 1+ Ovalocytes 1+ Sodium 136 Potassium 3.7 Chloride 101 Carbon Dioxide 28 Anion Gap 6 L BUN 41 H Creatinine 1.6 H Creat Clearance w eGFR 41.00 POC Glucometer 215 Random Glucose 230 H Calcium 8.4 L Phosphorus 2.4 L Magnesium 1.9 Total Bilirubin 1.4 H Direct Bilirubin 0.8 H AST 148 H ALT 841 H Alkaline Phosphatase 185 H Total Protein 5.6 L Albumin 2.5 L 07/02/18 07/02/18 11:38 16:33 WBC RBC Hgb Hct MCV MCH MCHC RDW Plt Count MPV Absolute Neuts (auto) Neutrophils % Neutrophils % (Manual) Band Neutrophils % Lymphocytes % Lymphocytes % (Manual) Monocytes % Monocytes % (Manual) Eosinophils % Eosinophils % (Manual) Basophils % Basophils % (Manual) Myelocytes % (Man) Promyelocytes % (Man) Blast Cells % (Manual) Nucleated RBC % Metamyelocytes Hypochromia Platelet Estimate Platelet Comment Polychromasia Poikilocytosis Anisocytosis Microcytosis Macrocytosis Spherocytes Ovalocytes Sodium Potassium Chloride Carbon Dioxide Anion Gap BUN Creatinine Creat Clearance w eGFR POC Glucometer 268 260 Random Glucose Calcium Phosphorus Magnesium Total Bilirubin Direct Bilirubin AST ALT Alkaline Phosphatase Total Protein Albumin Active Medications Generic Name Dose Route Start Last Admin Trade Name Lioq PRN Reason Stop Dose Admin Apixaban 2.5 mg 07/01/18 22:00 07/02/18 23:21 Eliquis - PO 2.5 mg BID CEASAR Administration Benzocaine/Menthol 1 each 07/01/18 21:04 Cepacol Lozenge - MM Q2H PRN SORE THROAT Diltiazem HCl 10 mg 06/28/18 10:36 Cardizem Injection - IVPUSH Q4H PRN TACHYCARDIA Finasteride 5 mg 06/27/18 12:45 07/02/18 09:22 Proscar - PO 5 mg DAILY CEASAR Administration Metronidazole 500 mg in 100 mls @ 100 mls/hr 06/28/18 10:00 07/03/18 02:06 Flagyl 500mg Premixed Ivpb - IVPB 100 mls/hr Q8H-IV CEASAR Administration Ceftriaxone Sodium 2 gm/ 100 mls @ 200 mls/hr 07/02/18 16:15 07/02/18 16:34 Dextrose IVPB 200 mls/hr DAILY CEASAR Administration Insulin Aspart 1 vial 06/27/18 11:00 07/02/18 23:21 Novolog Vial Sliding Scale - SQ 4 units ACHS CEASAR Administration Protocol Metoprolol Tartrate 25 mg 06/28/18 10:45 07/02/18 23:21 Lopressor - PO 25 mg TID CEASAR Administration Morphine Sulfate 2 mg 06/27/18 17:50 06/28/18 09:01 Morphine Sulfate IVPUSH 2 mg Q3H PRN Administration PAIN LEVEL 7 - 10 Potassium Phos/Sodium Phos 1 packet 07/02/18 14:30 07/02/18 23:21 Phos-Nak Packet - PO 07/03/18 14:01 1 packet TID CEASAR Administration CBC, BMP 07/03/18 05:15 07/03/18 05:15 ASSESSMENT/PLAN: Pt is an 88 y/o gentleman ([employer] ) with a significant past medical history of HLD, BPH, HTN, IDDM, A-fib (on Plavix), Lower extremity claudication , and SUGAR on CPAP who presented to [facility] due to chest pain and nausea. #Gallstone Pancreatitis CTAP--> Acute calculus cholecystitis. 3 mm CBD calculus seen at level of ampulla. CBD dilated at 0.8 cm. -Full liquid diet -S/P ERCP w/ Dr Smalls. Stent placement, sphincterotomy/papillotomy. Two stones removed from CBD successfully. -Surgery Consult- Dr Hill. on board--> will opt for Interval cholecystectomy as pt more prone to adverse effects of cholecystectomy at this juncture, i.e bleeding -On ceftriaxone and Flagyl BCx + Bacteroides Distasonis. -AST/ALT Trending down. TRUNG Pt's Bun/Cr on admission: 44/1.5. 41/1.6....32/1.5 Dr Wilkins on board #HLD Will hold Statin in light of Transaminitis #BPH Continue Proscar 5 mg daily #IDDM ISS adjusted Hold oral agents and resume uppon dc #A-FIB A-fib with HR 108, Absent CARLOS MANUEL, STD. + L ant fasc. block. Absent Q waves. Nml R wave progression. -Not on any AC for unknown reason -[id number]--> 5-6 -Lopressor titrated up to 25 Q8H. -Diltiazem IVPUSH Q4H PRN for tachycardia > 120 BPM #HTN start norvasc 2.5 mg po daily Will resume Lisinopril when Renal function WNL Withold Thiazides as known to cause pancreatitis. #SUGAR Continue CPAP at night #FEN * dc fluids * Monitor electrolytes * Soft Diet #DVT ppx: * Eliquis 2.5 MG #Dispo * Tele will need Hep B vaccine ISS increased Visit type - Emergency Visit Emergency Visit: Yes ED Registration Date: 06/27/18 Care time: The patient presented to the Emergency Department on the above date and was hospitalized for further evaluation of their emergent condition. - New Patient This patient is new to me today: No - Critical Care Critical Care patient: No
[2018-07-03] MEDS: METOPROLOL TARTRATE 25 MG TABLET (FP) PO SCH ×3 (06:01→21:02)
[2018-07-03] MEDS: NAPH,MB-DB/K PH,MBDB POWDER PACKET PO SCH ×2 (06:01→13:14)
[2018-07-03 06:18] LABS: HEMATOCRIT 35.5 % (35.4-49); HEMOGLOBIN 11.8 GM/dL (11.7-16.9); MCHC 33.3 g/dl (32.0-35.9); MEAN CELL VOLUME 87.3 fl (80-96); MEAN PLT VOLUME 9.3 fl (7.5-11.1); PLATELET COUNT 230 K/MM3 (134-434); RBC 4.07 M/mm3 (4.00-5.60); RDW 16.5 % (11.9-15.9); WHITE BLOOD COUNT 13.3 K/mm3 (4.0-10.0)
[2018-07-03] MEDS: INSULIN SLIDING SCALE (NOVOLOG) 1 VIAL SQ SCH ×4 (06:33→21:02)
[2018-07-03 06:48] LABS: ALBUMIN 2.5 g/dl (3.4-5.0); ALK PHOS 174 U/L (45-117); ANION GAP 7 MMOL/L (8-16); BILIRUBIN,DIRECT 0.6 mg/dL (0.0-0.2); BILIRUBIN,TOTAL 1.1 mg/dL (0.2-1); BLOOD UREA NITROGEN 32 mg/dL (7-18); CALCIUM 8.7 mg/dL (8.5-10.1); CHLORIDE 100 mmol/L (98-107); CO2 29 mmol/L (21-32); CREATININE 1.5 mg/dL (0.55-1.3); GLUCOSE,RANDOM 244 mg/dL (74-106); POTASSIUM 3.7 mmol/L (3.5-5.1); SGOT/AST 80 U/L (15-37); SGPT/ALT 609 U/L (13-61); SODIUM 136 mmol/L (136-145); TOT PROT 5.9 g/dl (6.4-8.2)
[2018-07-03] MEDS ORDERED: DEXTROSE 5%-WATER 100 ML IVPB ONE (08:45)
[2018-07-03] MEDS: APIXABAN 2.5 MG TABLET PO SCH ×2 (09:01→21:02)
[2018-07-03] MEDS: FINASTERIDE 5 MG TABLET (FP) PO SCH (09:01)
[2018-07-03] MEDS: CEFTRIAXONE 2 GM in DEXTROSE 5%-WATER 100 ML IVPB SCH (09:32)
--- NOTE | 2018-07-03 09:42 | PN ---
Progress Note (short form) - Note Progress Note: RENAL pt is awake and alert comfortable denies problems urinating Last Vital Signs Temp Pulse Resp BP Pulse Ox 98.6 F 77 20 163/83 96 07/03/18 05:44 07/03/18 05:44 07/03/18 08:35 07/03/18 05:44 07/03/18 08:35 lungs clear cvs s1s2 rr abd soft ext noedema neuro a+ox3 CBC, BMP 07/03/18 05:15 07/03/18 05:15 Current Medications Generic Name Dose Route Start Last Admin Trade Name Freq PRN Reason Stop Dose Admin Amlodipine Besylate 2.5 mg 07/03/18 10:00 Norvasc - PO DAILY CEASAR Apixaban 2.5 mg 07/01/18 22:00 07/03/18 09:01 Eliquis - PO 2.5 mg BID CEASAR Administration Benzocaine/Menthol 1 each 07/01/18 21:04 Cepacol Lozenge - MM Q2H PRN SORE THROAT Diltiazem HCl 10 mg 06/28/18 10:36 Cardizem Injection - IVPUSH Q4H PRN TACHYCARDIA Finasteride 5 mg 06/27/18 12:45 07/03/18 09:01 Proscar - PO 5 mg DAILY CEASAR Administration Metronidazole 500 mg in 100 mls @ 100 mls/hr 06/28/18 10:00 07/03/18 09:32 Flagyl 500mg Premixed Ivpb - IVPB 100 mls/hr Q8H-IV CEASAR Administration Ceftriaxone Sodium 2 gm/ 100 mls @ 200 mls/hr 07/02/18 16:15 07/03/18 09:32 Dextrose IVPB 200 mls/hr DAILY CEASAR Administration Insulin Aspart 1 vial 06/27/18 11:00 07/03/18 06:33 Novolog Vial Sliding Scale - SQ 4 units ACHS CAESAR Administration Protocol Metoprolol Tartrate 25 mg 06/28/18 10:45 07/03/18 06:01 Lopressor - PO 25 mg TID CEASAR Administration Morphine Sulfate 2 mg 06/27/18 17:50 06/28/18 09:01 Morphine Sulfate IVPUSH 2 mg Q3H PRN Administration PAIN LEVEL 7 - 10 Potassium Phos/Sodium Phos 1 packet 07/02/18 14:30 07/03/18 06:01 Phos-Nak Packet - PO 07/03/18 14:01 1 packet TID CEASAR Administration Impression 1. TRUNG improving 2. CKD 3. gall stone pancreatitis 4. a-fib 5. DM 6. HTN 7. chf diastolic Plan would continue current management increase amlodipine if bp remains elevated proteinuria work up if persistent- rpeat ua and obtain urine proteina nd creat MV
[2018-07-03] MEDS: amLODIPine BESYLATE 2.5 MG TABLET (FP) PO SCH (09:46)
--- NOTE | 2018-07-03 10:42 | PN ---
Progress Note (short form) - Note Progress Note: Pt tolerating diet, indeed, is getting more food from the outside. Denies abdominal pain. Liver chemistries still elevated but coming down. Pt eager to be discharged. Would check WBC again to make sure it is not climbing (13.3 today).
--- NOTE | 2018-07-03 12:55 | PN ---
Teaching Attending Note Name of Resident: Dakota Hancock ATTENDING PHYSICIAN STATEMENT I saw and evaluated the patient. I reviewed the resident's note and discussed the case with the resident. I agree with the resident's findings and plan as documented. SUBJECTIVE: no fever or chills, no SOB today . No LOBO , no Abd pain OBJECTIVE: NAD , awake, pleasant, and cooperative CV: RRR, no MRG Lungs: CTAB Ext : no edema or erythema Abd: obese, soft, NT, ND , NL BS ASSESSMENT AND PLAN: 88 y/o man with h/o A fib, DM , CKD, HTN, diastolic heart failure, who presented with abd pain and was found to have acute pancreatitis, cholecystitis with cholangitis and bacteremia. hospital stay was complicated by episode of A fib with VR 1- Acute gall stone pancreatitis: improved. 2- Acute cholangitis with anaerobic bacteremia: s/p ERCP and stone extraction. - repeat blood cx with no growth x 48 hrs - cont with ceftriaxone and flagyl. - monitor leukocytosis - CCy in 6-8 weeks - repeat ERCP in 3 months 3- A fib: - cont BB and eliquis 4-HTN: - cont ot hold home lisinopril - cont BB - add low dose norvasc 5- TRUNG: - cr cont to improved off IVF. - repeat UA ordered for proteinuria. if persistent will check protein /cr ration 6- H/o diastolic heart failure, euvolemic 7- Dm : increase his SSI DVT PX: Scds and eliquis
[2018-07-03 19:38] LABS: URINE APPEARANCE CLEAR; URINE BILIRUBIN NEGATIVE (<2.0 mg/dL); URINE COLOR LTYELLOW; URINE GLUCOSE (UA) 3+ (NEGATIVE); URINE KETONE NEGATIVE (NEGATIVE); URINE LEUK ESTERASE NEGATIVE (NEGATIVE); URINE NITRITE NEGATIVE (NEGATIVE); URINE PROTEIN NEGATIVE (NEGATIVE); URINE UROBILINOGEN NEGATIVE mg/dL (0.2-1.0)
[2018-07-04] MEDS: INSULIN SLIDING SCALE (NOVOLOG) 1 VIAL SQ SCH ×4 (06:31→22:06)
[2018-07-04] MEDS: METOPROLOL TARTRATE 25 MG TABLET (FP) PO SCH ×3 (06:31→22:06)
[2018-07-04 07:28] LABS: BASO % 0.2 % (0-2.0); EOS % 2.1 % (0-4.5); HEMATOCRIT 35.5 % (35.4-49); HEMOGLOBIN 11.8 GM/dL (11.7-16.9); LYMPH % 12.2 % (8-40); MCHC 33.2 g/dl (32.0-35.9); MEAN CELL VOLUME 87.4 fl (80-96); MEAN PLT VOLUME 9.2 fl (7.5-11.1); MONO % 9.1 % (3.8-10.2); NEUT % 76.4 % (42.8-82.8); PLATELET COUNT 243 K/MM3 (134-434); RBC 4.06 M/mm3 (4.00-5.60); RDW 16.5 % (11.9-15.9); WHITE BLOOD COUNT 10.2 K/mm3 (4.0-10.0)
[2018-07-04] MEDS ORDERED: DEXTROSE 5%-WATER 100 ML IVPB ONE (08:51)
--- NOTE | 2018-07-04 09:33 | PN ---
Progress Note (short form) - Note Progress Note: RENAL pt is awake and alert comfortable denies problems urinating had some difficulty sleeping Last Vital Signs Temp Pulse Resp BP Pulse Ox 98.4 F 73 20 142/53 L 97 07/04/18 06:10 07/04/18 06:10 07/04/18 09:00 07/04/18 06:10 07/04/18 09:00 lungs clear cvs s1s2 rr abd soft ext noedema neuro a+ox3 CBC, BMP 07/04/18 06:10 07/03/18 05:15 Current Medications Generic Name Dose Route Start Last Admin Trade Name Freq PRN Reason Stop Dose Admin Amlodipine Besylate 2.5 mg 07/03/18 10:00 07/03/18 09:46 Norvasc - PO 2.5 mg DAILY CEASAR Administration Apixaban 2.5 mg 07/01/18 22:00 07/03/18 21:02 Eliquis - PO 2.5 mg BID CEASAR Administration Benzocaine/Menthol 1 each 07/01/18 21:04 Cepacol Lozenge - MM Q2H PRN SORE THROAT Diltiazem HCl 10 mg 06/28/18 10:36 Cardizem Injection - IVPUSH Q4H PRN TACHYCARDIA Finasteride 5 mg 06/27/18 12:45 07/03/18 09:01 Proscar - PO 5 mg DAILY CEASAR Administration Metronidazole 500 mg in 100 mls @ 100 mls/hr 06/28/18 10:00 07/04/18 01:43 Flagyl 500mg Premixed Ivpb - IVPB 100 mls/hr Q8H-IV CEASAR Administration Ceftriaxone Sodium 2 gm/ 100 mls @ 200 mls/hr 07/02/18 16:15 07/03/18 09:32 Dextrose IVPB 200 mls/hr DAILY CEASAR Administration Insulin Aspart 1 vial 07/03/18 15:41 07/04/18 06:31 Novolog Vial Sliding Scale - SQ 6 units ACHS CEASAR Administration Protocol Metoprolol Tartrate 25 mg 06/28/18 10:45 07/04/18 06:31 Lopressor - PO 25 mg TID CEASAR Administration Impression 1. TRUNG improving 2. CKD 3. gall stone pancreatitis 4. a-fib 5. DM 6. HTN 7. chf diastolic Plan would continue current management increase amlodipine if bp remains elevated proteinuria work up if persistent- repeat ua and obtain urine proteina nd creat MV
[2018-07-04] MEDS: CEFTRIAXONE 2 GM in DEXTROSE 5%-WATER 100 ML IVPB SCH (10:08)
[2018-07-04] MEDS: amLODIPine BESYLATE 2.5 MG TABLET (FP) PO SCH (10:14)
[2018-07-04] MEDS: APIXABAN 2.5 MG TABLET PO SCH ×2 (10:14→22:06)
[2018-07-04] MEDS: FINASTERIDE 5 MG TABLET (FP) PO SCH (10:14)
--- NOTE | 2018-07-04 14:54 | PN ---
Progress Note, Physician History of Present Illness: Epigastric pain resolved, denies nausea or emesis, cp or dyspnea, afebrile. Tolerating soft diet. - Current Medication List Current Medications: Active Medications Amlodipine Besylate (Norvasc -) 2.5 mg PO DAILY [facility] Last Admin: 07/04/18 10:14 Dose: 2.5 mg Apixaban (Eliquis -) 2.5 mg PO BID [facility] Last Admin: 07/04/18 10:14 Dose: 2.5 mg Benzocaine/Menthol (Cepacol Lozenge -) 1 each MM Q2H PRN PRN Reason: SORE THROAT Diltiazem HCl (Cardizem Injection -) 10 mg IVPUSH Q4H PRN PRN Reason: TACHYCARDIA Finasteride (Proscar -) 5 mg PO DAILY [facility] Last Admin: 07/04/18 10:14 Dose: 5 mg Metronidazole (Flagyl 500mg Premixed Ivpb -) 500 mg in 100 mls @ 100 mls/hr IVPB Q8H-IV [facility] Last Admin: 07/04/18 10:15 Dose: 100 mls/hr Ceftriaxone Sodium 2 gm/ (Dextrose) 100 mls @ 200 mls/hr IVPB DAILY [facility] Last Admin: 07/04/18 10:08 Dose: 200 mls/hr Insulin Aspart (Novolog Vial Sliding Scale -) 1 vial SQ ACHS [facility]; Protocol Last Admin: 07/04/18 11:51 Dose: 10 units Metoprolol Tartrate (Lopressor -) 25 mg PO TID [facility] Last Admin: 07/04/18 06:31 Dose: 25 mg - Objective Vital Signs: Vital Signs Temperature 98.4 F 07/04/18 14:02 Pulse Rate 80 07/04/18 14:02 Respiratory Rate 20 07/04/18 14:02 Blood Pressure 127/74 07/04/18 14:02 O2 Sat by Pulse Oximetry (%) 96 07/04/18 11:54 Constitutional: Yes: No Distress, Calm Neck: Yes: Supple Cardiovascular: Yes: Regular Rate and Rhythm Respiratory: Yes: Regular, CTA Bilaterally Gastrointestinal: Yes: Normal Bowel Sounds, Soft Edema: Yes Edema: LLE: Trace, RLE: Trace Labs: CBC, BMP 07/04/18 06:10 07/03/18 05:15 INR, PTT INR 1.25 (0.83-1.09) H 06/30/18 06:00 - ....Imaging EKG: Report Reviewed (Tele: NSR) Problem List - Problems (1) Acute cholecystitis due to biliary calculus Code(s): K80.00 - CALCULUS OF GALLBLADDER W ACUTE CHOLECYST W/O OBSTRUCTION (2) Atrial fibrillation with RVR Code(s): I48.91 - UNSPECIFIED ATRIAL FIBRILLATION (3) Pancreatitis Code(s): K85.90 - ACUTE PANCREATITIS WITHOUT NECROSIS OR INFECTION, UNSP Qualifiers: Chronicity: acute Pancreatitis type: unspecified pancreatitis type Acute pancreatitis complication: unspecified Qualified Code(s): K85.90 - Acute pancreatitis without necrosis or infection, unspecified (4) CKD (chronic kidney disease) Code(s): N18.9 - CHRONIC KIDNEY DISEASE, UNSPECIFIED (5) Demand ischemia Code(s): I24.8 - OTHER FORMS OF ACUTE ISCHEMIC HEART DISEASE (6) Hyperlipidemia Code(s): E78.5 - HYPERLIPIDEMIA, UNSPECIFIED Qualifiers: Hyperlipidemia type: pure hypercholesterolemia Qualified Code(s): E78.00 - Pure hypercholesterolemia, unspecified; E78.0 - Pure hypercholesterolemia Assessment/Plan 06/29/2018 MRCP: GS and sludge c/w acute cholecystitis without choledocholithiasis or biliary ductal dilatation 06/29/2018 Renal US: Large PVR >500 cc, no hydronephrosis 06/29/2018 Normal LV fxn, mild-mod LVH EF 57%, abnl LV compliance, normal RV size and fxn, normal biatrial sizes, mild MR, TR, dilated ao 4.9 cm 1. Acute calculus cholecystitis with GS pancreatits s/p ERCP stone retrieval, sphincterotomy and biliary stent placement 2. Biliary gram negative sepsis- probable anaerobe-bacteroides 3. CAD coronary artery calcification with demand ischemia 4. Diastolic LV dysfunction with clinical class 0 NYHA classification LV failure 5. Persistent atrial fibrillation with RVR [id number] score of 5-6 on no A/C 6. HTN 7. DM 8. Hypercholesterolemia 9. Acute on chronic kidney disease due to sepsis improving, underlying proteinuria 10. OSAS 11. BPH with bladder outlet obstruction PLAN: 1. Decrease Metoprolol 25 PO bid. Cardizem IV can be given when needed for additional rate control 2. Currently on Norvasc 2.5 qd, would change to lisinopril once renal function at baseline 3. Withhold HCTZ and statin therapy for now, monitor renal recovery 4. Continue Eliquis 2.5 bid considering [id number] score of 5-6 now that post- procedure hemostasis achieved 5. Surgery input appreciated and recommended lap cholecystectomy in 6-8 weeks, LFTs trending downwards, maintain on abx to cover biliary sepsis per C&S 6. CPAP nightly [employer] Dr. Melo Myers [facility] [place]Fabiola Hernandez
[2018-07-04] MEDS ORDERED: INSULIN (LEVEMIR) 100 UNITS/ML UNITS SQ ONE ×2 (16:08→18:35)
--- NOTE | 2018-07-04 16:09 | PN ---
Progress Note (short form) - Note Progress Note: Subjective: no pain, OSB , or diarrhea . no events over night Objective: Vital Signs: Last Vital Signs Temp Pulse Resp BP Pulse Ox 98.4 F 80 20 127/74 97 07/04/18 14:02 07/04/18 14:02 07/04/18 14:02 07/04/18 14:02 07/04/18 15:00 Laboratory Results - last 24 hr 07/03/18 07/03/18 07/03/18 14:45 14:45 14:45 WBC RBC Hgb Hct MCV MCH MCHC RDW Plt Count MPV Absolute Neuts (auto) Neutrophils % Lymphocytes % Monocytes % Eosinophils % Basophils % Nucleated RBC % POC Glucometer Urine Color Ltyellow Urine Appearance Clear Urine pH 5.0 Ur Specific Dania 1.012 Urine Protein Negative 15 H Urine Glucose (UA) 3+ H Urine Ketones Negative Urine Blood Negative Urine Nitrite Negative Urine Bilirubin Negative Urine Urobilinogen Negative Ur Leukocyte Esterase Negative Urine Creatinine 49.7 07/03/18 07/03/18 07/04/18 16:33 20:59 05:23 WBC RBC Hgb Hct MCV MCH MCHC RDW Plt Count MPV Absolute Neuts (auto) Neutrophils % Lymphocytes % Monocytes % Eosinophils % Basophils % Nucleated RBC % POC Glucometer 224 271 209 Urine Color Urine Appearance Urine pH Ur Specific Dania Urine Protein Urine Glucose (UA) Urine Ketones Urine Blood Urine Nitrite Urine Bilirubin Urine Urobilinogen Ur Leukocyte Esterase Urine Creatinine 07/04/18 07/04/18 06:10 11:34 WBC 10.2 H RBC 4.06 Hgb 11.8 Hct 35.5 MCV 87.4 MCH 29.0 MCHC 33.2 RDW 16.5 H Plt Count 243 MPV 9.2 Absolute Neuts (auto) 7.8 Neutrophils % 76.4 Lymphocytes % 12.2 D Monocytes % 9.1 Eosinophils % 2.1 Basophils % 0.2 Nucleated RBC % 0 POC Glucometer 340 Urine Color Urine Appearance Urine pH Ur Specific Dania Urine Protein Urine Glucose (UA) Urine Ketones Urine Blood Urine Nitrite Urine Bilirubin Urine Urobilinogen Ur Leukocyte Esterase Urine Creatinine Physical Exam: NAD , awake, pleasant, and cooperative CV: RRR, no MRG Lungs: CTAB Ext : no edema or erythema Abd: obese, soft, NT, ND , NL BS ASSESSMENT AND PLAN: 88 y/o man with h/o A fib, DM , CKD, HTN, diastolic heart failure, who presented with abd pain and was found to have acute pancreatitis, cholecystitis with cholangitis and bacteremia. hospital stay was complicated by episode of A fib with VR 1- Acute gall stone pancreatitis: improved. 2- Acute cholangitis with anaerobic bacteremia: s/p ERCP and stone extraction. - repeat blood cx with no growth x 72 hrs - cont with ceftriaxone and flagyl. possible deescalation to po abx tomorrow - monitor leukocytosis ( improved ) - CCy in 6-8 weeks - repeat ERCP in 3 months 3- A fib: - cont BB and eliquis 4-HTN: - cont to hold home lisinopril - cont BB - cont norvasc 5- TRUNG: - follow off IVF - protein uria 0.306 g /24 hr . renal f/u 6- H/o diastolic heart failure, euvolemic 7- Dm : cont SSI. add low dose levemir DVT PX: Scds and eliquis Visit type - Emergency Visit Emergency Visit: Yes ED Registration Date: 06/27/18 Care time: The patient presented to the Emergency Department on the above date and was hospitalized for further evaluation of their emergent condition. - New Patient This patient is new to me today: No - Critical Care Critical Care patient: No
[2018-07-05] MEDS: INSULIN SLIDING SCALE (NOVOLOG) 1 VIAL SQ SCH ×3 (07:00→16:57)
[2018-07-05] MEDS ORDERED: INSULIN (LEVEMIR) 100 UNITS/ML UNITS SQ SCH (07:00)
[2018-07-05 07:03] LABS: BASO % 0.5 % (0-2.0); EOS % 1.6 % (0-4.5); HEMOGLOBIN 11.8 GM/dL (11.7-16.9); LYMPH % 13.8 % (8-40); MCH 29.3 pg (25.7-33.7); MCHC 33.8 g/dl (32.0-35.9); MEAN CELL VOLUME 86.6 fl (80-96); MEAN PLT VOLUME 8.9 fl (7.5-11.1); MONO % 8.3 % (3.8-10.2); NEUT % 75.8 % (42.8-82.8); PLATELET COUNT 266 K/MM3 (134-434); RBC 4.04 M/mm3 (4.00-5.60); RDW 17.1 % (11.9-15.9); WHITE BLOOD COUNT 9.6 K/mm3 (4.0-10.0)
[2018-07-05 07:39] LABS: ALBUMIN 2.7 g/dl (3.4-5.0); ALK PHOS 156 U/L (45-117); ANION GAP 6 MMOL/L (8-16); BILIRUBIN,TOTAL 1.1 mg/dL (0.2-1); BLOOD UREA NITROGEN 22 mg/dL (7-18); CALCIUM 8.9 mg/dL (8.5-10.1); CHLORIDE 101 mmol/L (98-107); CO2 30 mmol/L (21-32); CREATININE 1.2 mg/dL (0.55-1.3); GLUCOSE,RANDOM 163 mg/dL (74-106); POTASSIUM 3.8 mmol/L (3.5-5.1); SGOT/AST 32 U/L (15-37); SGPT/ALT 341 U/L (13-61); SODIUM 137 mmol/L (136-145); TOT PROT 5.8 g/dl (6.4-8.2)
[2018-07-05] MEDS ORDERED: INSULIN (LEVEMIR) 100 UNITS/ML UNITS SQ ONE (08:55)
--- NOTE | 2018-07-05 09:01 | PN ---
Teaching Attending Note Name of Resident: Jarret Pereira ATTENDING PHYSICIAN STATEMENT I saw and evaluated the patient. I reviewed the resident's note and discussed the case with the resident. I agree with the resident's findings and plan as documented. SUBJECTIVE: No LOBO , no ABd pain, no fever or chills . no diarrhea OBJECTIVE: OBJECTIVE: NAD , awake, pleasant, and cooperative CV: RRR, no MRG Lungs: CTAB Ext : no edema or erythema Abd: obese, soft, NT, ND , NL BS ASSESSMENT AND PLAN: 88 y/o man with h/o A fib, DM , CKD, HTN, diastolic heart failure, who presented with abd pain and was found to have acute pancreatitis, cholecystitis with cholangitis and bacteremia. hospital stay was complicated by episode of A fib with VR 1- Acute gall stone pancreatitis: improved. 2- Acute cholangitis with anaerobic bacteremia: s/p ERCP and stone extraction. - repeat blood cx with no growth x 96 hrs - On ceftriaxone and flagyl. will d/w ID , possibly can switch to po today - CCy in 6-8 weeks - repeat ERCP in 3 months 3- A fib: - cont BB and eliquis 4-HTN: - renal function is back to NL, will d/w renal , if not recommended to resumem lisinopril, then will cont norvasc temporarily until evaluated as out pt - cont BB 5- TRUNG: normal now f/u with renal regarding protein uria , 0.306 g/24 hr 6- H/o diastolic heart failure, euvolemic 7- Dm : at home he is on 40 of lantus at night , metformin and actos. No glipizide. - hypoglycemic at night some times kane lsend home on lantus 25 units in am and actos no metformin due to renal function and age Dispo: possible dc today , pending ID recs. VNS services and PT to be arranged
[2018-07-05] MEDS ORDERED: DEXTROSE 5%-WATER 100 ML IVPB ONE (09:05)
[2018-07-05] MEDS: amLODIPine BESYLATE 2.5 MG TABLET (FP) PO SCH (09:23)
[2018-07-05] MEDS: METOPROLOL TARTRATE 25 MG TABLET (FP) PO SCH (09:23)
[2018-07-05] MEDS: APIXABAN 2.5 MG TABLET PO SCH (09:23)
[2018-07-05] MEDS: FINASTERIDE 5 MG TABLET (FP) PO SCH (09:23)
[2018-07-05] MEDS: CEFTRIAXONE 2 GM in DEXTROSE 5%-WATER 100 ML IVPB SCH (09:23)
--- NOTE | 2018-07-05 10:54 | PN ---
Progress Note, Physician History of Present Illness: Epigastric pain resolved, denies nausea or emesis, cp or dyspnea, afebrile. Tolerating soft diet. - Current Medication List Current Medications: Active Medications Amlodipine Besylate (Norvasc -) 2.5 mg PO DAILY [facility] Last Admin: 07/05/18 09:23 Dose: 2.5 mg Apixaban (Eliquis -) 2.5 mg PO BID [facility] Last Admin: 07/05/18 09:23 Dose: 2.5 mg Benzocaine/Menthol (Cepacol Lozenge -) 1 each MM Q2H PRN PRN Reason: SORE THROAT Last Admin: 07/05/18 09:24 Dose: 1 each Diltiazem HCl (Cardizem Injection -) 10 mg IVPUSH Q4H PRN PRN Reason: TACHYCARDIA Finasteride (Proscar -) 5 mg PO DAILY [facility] Last Admin: 07/05/18 09:23 Dose: 5 mg Ceftriaxone Sodium 2 gm/ (Dextrose) 100 mls @ 200 mls/hr IVPB DAILY [facility] Last Admin: 07/05/18 09:23 Dose: 200 mls/hr Insulin Aspart (Novolog Vial Sliding Scale -) 1 vial SQ ACHS [facility]; Protocol Last Admin: 07/05/18 07:00 Dose: 4 units Insulin Detemir (Levemir Vial) 20 units SQ AM [facility] Metoprolol Tartrate (Lopressor -) 25 mg PO BID [facility] Last Admin: 07/05/18 09:23 Dose: 25 mg - Objective Vital Signs: Vital Signs Temperature 98.6 F 07/05/18 09:31 Pulse Rate 89 07/05/18 09:31 Respiratory Rate 18 07/05/18 09:31 Blood Pressure 117/64 07/05/18 09:31 O2 Sat by Pulse Oximetry (%) 95 07/05/18 07:38 Constitutional: Yes: No Distress, Calm Neck: Yes: Supple Cardiovascular: Yes: Regular Rate and Rhythm Respiratory: Yes: Regular, Diminished Gastrointestinal: Yes: Normal Bowel Sounds, Soft Edema: No Labs: CBC, BMP 07/05/18 06:30 07/05/18 06:30 INR, PTT INR 1.25 (0.83-1.09) H 06/30/18 06:00 - ....Imaging EKG: Report Reviewed (Tele: NSR occ PVC) Problem List - Problems (1) Acute cholecystitis due to biliary calculus Code(s): K80.00 - CALCULUS OF GALLBLADDER W ACUTE CHOLECYST W/O OBSTRUCTION (2) Atrial fibrillation with RVR Code(s): I48.91 - UNSPECIFIED ATRIAL FIBRILLATION (3) Pancreatitis Code(s): K85.90 - ACUTE PANCREATITIS WITHOUT NECROSIS OR INFECTION, UNSP Qualifiers: Chronicity: acute Pancreatitis type: unspecified pancreatitis type Acute pancreatitis complication: unspecified Qualified Code(s): K85.90 - Acute pancreatitis without necrosis or infection, unspecified (4) CKD (chronic kidney disease) Code(s): N18.9 - CHRONIC KIDNEY DISEASE, UNSPECIFIED (5) Demand ischemia Code(s): I24.8 - OTHER FORMS OF ACUTE ISCHEMIC HEART DISEASE (6) Hyperlipidemia Code(s): E78.5 - HYPERLIPIDEMIA, UNSPECIFIED Qualifiers: Hyperlipidemia type: pure hypercholesterolemia Qualified Code(s): E78.00 - Pure hypercholesterolemia, unspecified; E78.0 - Pure hypercholesterolemia Assessment/Plan 06/29/2018 MRCP: GS and sludge c/w acute cholecystitis without choledocholithiasis or biliary ductal dilatation 06/29/2018 Renal US: Large PVR >500 cc, no hydronephrosis 06/29/2018 Normal LV fxn, mild-mod LVH EF 57%, abnl LV compliance, normal RV size and fxn, normal biatrial sizes, mild MR, TR, dilated ao 4.9 cm 1. Acute calculus cholecystitis with GS pancreatits s/p ERCP stone retrieval, sphincterotomy and biliary stent placement 2. Biliary gram negative sepsis- anaerobe-bacteroides 3. CAD coronary artery calcification with demand ischemia 4. Diastolic LV dysfunction with clinical class 0 NYHA classification LV failure 5. Persistent atrial fibrillation with RVR [id number] score of 5-6 on no A/C 6. HTN 7. DM 8. Hypercholesterolemia 9. Acute on chronic kidney disease due to sepsis improving, underlying proteinuria 10. 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 BPH with bladder outlet obstruction PLAN: 1. Continue Metoprolol 25 PO bid. Cardizem IV can be given when needed for additional rate control 2. Currently on Norvasc 2.5 qd, would change to lisinopril 10 qd once renal function at baseline 3. Withhold HCTZ and statin therapy for now, monitor renal recovery 4. Continue Eliquis 2.5 bid considering [id number] score of 5-6 now that post- procedure hemostasis achieved 5. Surgery input appreciated and recommended lap cholecystectomy in 6-8 weeks, LFTs trending downwards, complete abx to cover biliary sepsis per C&S, repeat ERCP 3 months 6. CPAP nightly 7. D/c planning Assistant Accounting Manager Dr. Melo Myers CD/Fabiola Hernandez
--- NOTE | 2018-07-05 12:11 | PN ---
Progress Note, Physician History of Present Illness: Pt seen and examined at bedside. He is awake and alert. He denies shortness of breath. - Current Medication List Current Medications: Active Medications Amlodipine Besylate (Norvasc -) 2.5 mg PO DAILY [facility] Last Admin: 07/05/18 09:23 Dose: 2.5 mg Apixaban (Eliquis -) 2.5 mg PO BID [facility] Last Admin: 07/05/18 09:23 Dose: 2.5 mg Benzocaine/Menthol (Cepacol Lozenge -) 1 each MM Q2H PRN PRN Reason: SORE THROAT Last Admin: 07/05/18 09:24 Dose: 1 each Diltiazem HCl (Cardizem Injection -) 10 mg IVPUSH Q4H PRN PRN Reason: TACHYCARDIA Finasteride (Proscar -) 5 mg PO DAILY [facility] Last Admin: 07/05/18 09:23 Dose: 5 mg Ceftriaxone Sodium 2 gm/ (Dextrose) 100 mls @ 200 mls/hr IVPB DAILY [facility] Last Admin: 07/05/18 09:23 Dose: 200 mls/hr Insulin Aspart (Novolog Vial Sliding Scale -) 1 vial SQ ACHS [facility]; Protocol Last Admin: 07/05/18 11:28 Dose: 12 units Insulin Detemir (Levemir Vial) 20 units SQ AM [facility] Metoprolol Tartrate (Lopressor -) 25 mg PO BID [facility] Last Admin: 07/05/18 09:23 Dose: 25 mg - Objective Vital Signs: Vital Signs Temperature 98.6 F 07/05/18 09:31 Pulse Rate 89 07/05/18 09:31 Respiratory Rate 18 07/05/18 09:31 Blood Pressure 117/64 07/05/18 09:31 O2 Sat by Pulse Oximetry (%) 95 07/05/18 07:38 Constitutional: Yes: Calm Eyes: Yes: Conjunctiva Clear HENT: Yes: Atraumatic Neck: Yes: Supple Cardiovascular: Yes: S1, S2 Respiratory: Yes: CTA Bilaterally Gastrointestinal: Yes: Soft, Abdomen, Obese Genitourinary: Yes: WNL Musculoskeletal: Yes: WNL Edema: LLE: Trace, RLE: Trace Neurological: Yes: Oriented Psychiatric: Yes: Oriented Labs: CBC, BMP 07/05/18 06:30 07/05/18 06:30 INR, PTT INR 1.25 (0.83-1.09) H 06/30/18 06:00 Problem List - Problems (1) TRUNG (acute kidney injury) Code(s): N17.9 - ACUTE KIDNEY FAILURE, UNSPECIFIED (2) Acute cholecystitis due to biliary calculus Code(s): K80.00 - CALCULUS OF GALLBLADDER W ACUTE CHOLECYST W/O OBSTRUCTION (3) Atrial fibrillation with RVR Code(s): I48.91 - UNSPECIFIED ATRIAL FIBRILLATION (4) CKD (chronic kidney disease) Code(s): N18.9 - CHRONIC KIDNEY DISEASE, UNSPECIFIED (5) HTN (hypertension) Code(s): I10 - ESSENTIAL (PRIMARY) HYPERTENSION Qualifiers: Hypertension type: essential hypertension Qualified Code(s): I10 - Essential (primary) hypertension (6) Pancreatitis Code(s): K85.90 - ACUTE PANCREATITIS WITHOUT NECROSIS OR INFECTION, UNSP Qualifiers: Chronicity: acute Pancreatitis type: unspecified pancreatitis type Acute pancreatitis complication: unspecified Qualified Code(s): K85.90 - Acute pancreatitis without necrosis or infection, unspecified Assessment/Plan Current Medications Generic Name Dose Route Start Last Admin Trade Name Freq PRN Reason Stop Dose Admin Amlodipine Besylate 2.5 mg 07/03/18 10:00 07/05/18 09:23 Norvasc - PO 2.5 mg DAILY [facility] Administration Apixaban 2.5 mg 07/01/18 22:00 07/05/18 09:23 Eliquis - PO 2.5 mg BID [facility] Administration Benzocaine/Menthol 1 each 07/01/18 21:04 07/05/18 09:24 Cepacol Lozenge - MM 1 each Q2H PRN Administration SORE THROAT Diltiazem HCl 10 mg 06/28/18 10:36 Cardizem Injection - IVPUSH Q4H PRN TACHYCARDIA Finasteride 5 mg 06/27/18 12:45 07/05/18 09:23 Proscar - PO 5 mg DAILY [facility] Administration Ceftriaxone Sodium 2 gm/ 100 mls @ 200 mls/hr 07/02/18 16:15 07/05/18 09:23 Dextrose IVPB 200 mls/hr DAILY [facility] Administration Insulin Aspart 1 vial 07/03/18 15:41 07/05/18 11:28 Novolog Vial Sliding Scale - SQ 12 units ACHS [facility] Administration Protocol Insulin Detemir 20 units 07/06/18 07:00 Levemir Vial SQ AM [facility] Metoprolol Tartrate 25 mg 07/04/18 22:00 07/05/18 09:23 Lopressor - PO 25 mg BID [facility] Administration Impression 1. TRUNG 2. CKD 3. pancreatitis 4. a-fib 5. DM 6. HTN 7. chf diastolic Plan - renal function is improving - discussed with cardio - can restart lisinopril at 10 mg and titrate up (pt was on 40 mg before) - pt off of fluids - volume status stable for now - discussed plan with pt and
[2018-07-05] MEDS ORDERED: LISINOPRIL 10 MG TABLET (FP) PO SCH (12:15)
[2018-07-05 15:00] VITALS: BP 137/66; PULSE 75; TEMP 98.8
--- NOTE | 2018-07-05 15:13 | PN ---
Progress Note (short form) - Note Progress Note: doing well some neck discomfort he attributes to the bed no diarrhea no rash no difficulty urinating Vital Signs Period Temp Pulse Resp BP Sys/Murray Pulse Ox Last 24 Hr 98.0 F-99.2 F 67-89 16-20 117-157/55-67 95-96 cor-rrr llungs clear abd soft,nt ext no edema CBC, BMP 07/05/18 06:30 07/05/18 06:30 Microbiology 06/30/18 18:00 Blood - Peripheral Venous Blood Culture - Preliminary NO GROWTH OBTAINED AFTER 96 HOURS, INCUBATION TO CONTINUE FOR 1 DAYS. 06/30/18 17:00 Blood - Peripheral Venous Blood Culture - Preliminary NO GROWTH OBTAINED AFTER 96 HOURS, INCUBATION TO CONTINUE FOR 1 DAYS. 06/27/18 17:00 Blood - Peripheral Venous Blood Culture - Final Bacteroides Distasonis 06/27/18 17:00 Blood - Peripheral Venous Blood Culture - Final Bacteroides Distasonis 06/27/18 23:06 Blood - Peripheral Venous Blood Culture - Final Bacteroides Distasonis 06/29/18 01:45 Urine - Urine - Catheterized Urine Culture - Final NO GROWTH OBTAINED Current Medications Amlodipine Besylate (Norvasc -) 2.5 mg PO DAILY [facility] Last Admin: 07/05/18 09:23 Dose: 2.5 mg Apixaban (Eliquis -) 2.5 mg PO BID [facility] Last Admin: 07/05/18 09:23 Dose: 2.5 mg Benzocaine/Menthol (Cepacol Lozenge -) 1 each MM Q2H PRN PRN Reason: SORE THROAT Last Admin: 07/05/18 09:24 Dose: 1 each Diltiazem HCl (Cardizem Injection -) 10 mg IVPUSH Q4H PRN PRN Reason: TACHYCARDIA Finasteride (Proscar -) 5 mg PO DAILY [facility] Last Admin: 07/05/18 09:23 Dose: 5 mg Ceftriaxone Sodium 2 gm/ (Dextrose) 100 mls @ 200 mls/hr IVPB DAILY [facility] Last Admin: 07/05/18 09:23 Dose: 200 mls/hr Insulin Aspart (Novolog Vial Sliding Scale -) 1 vial SQ ACHS [facility]; Protocol Last Admin: 07/05/18 11:28 Dose: 12 units Insulin Detemir (Levemir Vial) 20 units SQ AM [facility] Lisinopril (Prinivil) 10 mg PO DAILY [facility] Last Admin: 07/05/18 12:56 Dose: 10 mg Metoprolol Tartrate (Lopressor -) 25 mg PO BID [facility] Last Admin: 07/05/18 09:23 Dose: 25 mg imp/reccd doing well day #8 antibiotics wbc normal for two days now no abdominal pain eating can switch to levaquin 500 daily and flagyl 500 tid for 7 days s//p ercp-with sphincterotomy, s/p stone extraction and stent placement cholycystitis-on hold now history afib d/w resident Problem List - Problems (1) Biliary sepsis Code(s): K83.09 - OTHER CHOLANGITIS (2) Acute cholecystitis due to biliary calculus Code(s): K80.00 - CALCULUS OF GALLBLADDER W ACUTE CHOLECYST W/O OBSTRUCTION (3) Choledocholithiasis with acute cholecystitis Code(s): K80.42 - CALCULUS OF BILE DUCT W ACUTE CHOLECYSTITIS W/O OBSTRUCTION (4) CKD (chronic kidney disease) Code(s): N18.9 - CHRONIC KIDNEY DISEASE, UNSPECIFIED
--- NOTE | 2018-07-05 16:32 | DS ---
Physical Exam: SUBJECTIVE: Patient seen and examined at bedside. no acute events overnight. OBJECTIVE: Vital Signs Period Temp Pulse Resp BP Sys/Murray Pulse Ox Last 24 Hr 98.0 F-99.2 F 67-89 16-20 117-157/55-67 95-96 PHYSICAL EXAM GENERAL: no acute distress. AAox3 HEAD: atraumatic/ normocephalic EYES: Sclera Jaundice. EOMI Sclera Clear EARS, NOSE, THROAT: MMM. NECK: No JVD appreciated LUNGS: CTAB HEART: Irregularly irregular ns1s2 ABDOMEN: NDNY MUSCULOSKELETAL: FROM throughout UPPER EXTREMITIES: No CCE. Ring finger left hand amputated LOWER EXTREMITIES: No CCE. Onychomycosis PSYCHIATRIC: Cooperative. Good eye contact. Appropriate mood and affect. SKIN: No rashes or lesions appreciated LABS Laboratory Results - last 24 hr 07/02/18 07/04/18 07/04/18 21:42 16:58 22:05 WBC RBC Hgb Hct MCV MCH MCHC RDW Plt Count MPV Absolute Neuts (auto) Neutrophils % Lymphocytes % Monocytes % Eosinophils % Basophils % Nucleated RBC % Sodium Potassium Chloride Carbon Dioxide Anion Gap BUN Creatinine Creat Clearance w eGFR POC Glucometer 227 231 312 Random Glucose Calcium Total Bilirubin AST ALT Alkaline Phosphatase Total Protein Albumin 07/05/18 07/05/18 07/05/18 05:47 06:30 06:30 WBC 9.6 RBC 4.04 Hgb 11.8 Hct 35.0 L MCV 86.6 MCH 29.3 MCHC 33.8 RDW 17.1 H Plt Count 266 MPV 8.9 Absolute Neuts (auto) 7.3 Neutrophils % 75.8 Lymphocytes % 13.8 Monocytes % 8.3 Eosinophils % 1.6 Basophils % 0.5 Nucleated RBC % 0 Sodium 137 Potassium 3.8 Chloride 101 Carbon Dioxide 30 Anion Gap 6 L BUN 22 H Creatinine 1.2 Creat Clearance w eGFR 57.14 POC Glucometer 156 Random Glucose 163 H Calcium 8.9 Total Bilirubin 1.1 H AST 32 ALT 341 H Alkaline Phosphatase 156 H Total Protein 5.8 L Albumin 2.7 L 07/05/18 07/05/18 11:26 16:28 WBC RBC Hgb Hct MCV MCH MCHC RDW Plt Count MPV Absolute Neuts (auto) Neutrophils % Lymphocytes % Monocytes % Eosinophils % Basophils % Nucleated RBC % Sodium Potassium Chloride Carbon Dioxide Anion Gap BUN Creatinine Creat Clearance w eGFR POC Glucometer 394 137 Random Glucose Calcium Total Bilirubin AST ALT Alkaline Phosphatase Total Protein Albumin HOSPITAL COURSE: Date of Admission:06/27/18 Pt is a 88 y/o gentleman ([place] ) with a significant past medical history of HLD, BPH, HTN, IDDM, A-fib, Lower extremity claudication, and SUGAR on CPAP who presented to [facility] due to chest pain and nausea. Pt exhibited demand ischemia with a peak troponin level at 1.52. CTAP was performed which revealed acute calculus cholecystitis as well as a 3 mm CBD calculus at level of ampulla. CBD was dilated at 0.8 cm. Pt underwent an ERCP w/ Dr Smalls w/ stent placement, sphincterotomy/papillotomy. Two stones removed from CBD successfully. Surgery was consulted, Dr Angelic Hill, for possible cholecystectomy. Surgery opted for an interval cholecystectomy in 6-8 weeks as risk of bleeding and complications were thought to be increased. Pt's AST/ALT/Alk Phos were significantly elevated at 3497, 2602, and 359 respectively. Total Bili was 4.7 and direct bili 3.8. Pt was placed on rocephin and flagyl. Furthermore, pt developed an TRUNG as his creatinine peaked at 2.9. Baseline Cr was WNL. Pt was taken off his plavix prior to his ERCP. Pt was started on Eliquis 2.5 Mg PO BID as his [id number] was 5-6. Thiazide and lisinopril were placed on hold in light of renal function. Pt's metformin was also d/c'ed in light of renal function. Pt was placed on IS and levemir 25 U in am. Pt discharged with VNS. #IDDM Will start Levemir 20 U SQ AM in light of recently elevated BGMs Will start ISS Date of Discharge: 07/05/18 Minutes to complete discharge: 35 Discharge Summary Reason For Visit: PANCREATTIS,CHEST PAIN AT REST,A-FIB W/RAPID VENTR Current Active Problems TRUNG (acute kidney injury) (Acute) Acute cholecystitis due to biliary calculus (Acute) Atrial fibrillation with RVR (Acute) Biliary sepsis (Acute) Chest pain at rest (Acute) Choledocholithiasis with acute cholecystitis (Acute) Demand ischemia (Acute) Pancreatitis (Acute) CKD (chronic kidney disease) (Chronic) HTN (hypertension) (Chronic) Hyperlipidemia (Chronic) Condition: Improved - Instructions Diet, Activity, Other Instructions: You presented to the hospital due to abdominal pain and nausea.You were found to have a stone in your common bile duct causing inflammation of your pancreas. Please follow up with the [facility], Dr Smalls, for a repeat ERCP in 3 months for your stent removal and removal of any further CBD stones. please check your blood pressure daily in am , and take log to your doctor Please STOP your Metformin Hold Simvastatin for now, it can be resumed when your liver enzymes normalize stop cardizem: now you are on metoprolol. Please take the following antibiotics for 7 days: -Levaquin 500 MG Orally for 7 days -Flagyl 500 MG THREE Times per day for 7 Days. - Take 20 units of lantus every morning . continue to take actos - check your sugar three times before meals and take log to your doctor. if your sugar is > 300 or < 100 call your doctor for instructions . - do not take aspirin and plavix as you are on eliquis -You were started on an anticoagulation called [facility] for your atrial fibrillation. Please continue to take this medication as prescribed. -You were placed on metoprolol tartrate 25 MG orally TWICE per day -Lisinopril 10 MG PO Daily, reduced from your previous dose of 40 mg daily. your dose might need to be increased to your usual dose after following with your primary and nephrology ( dr. wilkins) You will need a cholecystectomy (Removal of your gallbladder) within 6-8 weeks. Please follow up with your surgeon, Dr Bk Hill after you leave the hospital. A referral has been provided for you in your discharge papers. Please return to the emergency department with any new or worsening symptoms or concerns. Please follow up with your primary care physician within 72 hours. blood work in 1 week. very important ( CMP, CBC) . fax to your PCP dr. Carranza. Referrals: Romario Euceda MD [Primary Care Provider] - 1 Week Bk Hill MD [Staff Physician] - 3 Weeks Pinky Smalls MD [Staff Physician] - 1 Month Papo Wilkins MD [Staff Physician] - Disposition: VNS/HOME HEALTH CARE - Home Medications Comprehensive Discharge Medication List: Ambulatory Orders Finasteride [Proscar] 5 mg PO DAILY 03/30/15 Pioglitazone HCl [Actos] 30 mg PO DAILY 03/30/15 Apixaban [Eliquis -] 2.5 mg PO BID #60 tablet 07/05/18 Insulin (Levemir) [Levemir Vial] 20 units SQ AM units 07/05/18 Levofloxacin [Levaquin] 500 mg PO DAILY #7 tablet 07/05/18 Lisinopril [Prinivil] 10 mg PO DAILY #30 tablet 07/05/18 Metoprolol Tartrate [Lopressor -] 25 mg PO BID #60 tablet 07/05/18 Miscellaneous Medical Supply [Outpatient Order] 1 each ASDIR #1 misc metroNIDAZOLE [Flagyl -] 500 mg PO TID #21 tablet 07/05/18 This patient is new to me today: No Emergency Visit: Yes ED Registration Date: 06/27/18 Care time: The patient presented to the Emergency Department on the above date and was hospitalized for further evaluation of their emergent condition. Critical Care patient: No - Discharge Referral Referred to [facility] No
[2018-07-06] MEDS ORDERED: INSULIN (LEVEMIR) 100 UNITS/ML UNITS SQ SCH (07:00)
== END 2018-07-05 17:51 | disposition home health service (06) | DRG 444 ==
LOC: JER 03:19 → JERBED 06:10 → J4S 11:06
PROVIDERS: ADMIT Internal Medicine; ATTEND Internal Medicine
PROC: 5A09557 Assistance with Respiratory Ventilation, Greater than 96 Consecutive Hours, Continuous Positive Airway Pressure (ICD-10-PCS; 2018-06-27)
PROC: 0F798DZ Dilation of Common Bile Duct with Intraluminal Device, Via Natural or Artificial Opening Endoscopic (ICD-10-PCS; 2018-06-28)
PROC: BF10YZZ Fluoroscopy of Bile Ducts using Other Contrast (ICD-10-PCS; 2018-06-28)
PROC: 0FC98ZZ Extirpation of Matter from Common Bile Duct, Via Natural or Artificial Opening Endoscopic (ICD-10-PCS; principal; 2018-06-28 14:00)
DX: K80.42 Calculus of bile duct with acute cholecystitis without obstruction (principal); K85.90 Acute pancreatitis without necrosis or infection, unspecified; I24.8 Other forms of acute ischemic heart disease; I50.32 Chronic diastolic (congestive) heart failure; I48.1 Persistent atrial fibrillation; K80.00 Calculus of gallbladder with acute cholecystitis without obstruction; R78.81 Bacteremia; N17.9 Acute kidney failure, unspecified; I13.0 Hypertensive heart and chronic kidney disease with heart failure and stage 1 through stage 4 chronic kidney disease, or unspecified chronic kidney disease; E87.1 Hypo-osmolality and hyponatremia; N18.9 Chronic kidney disease, unspecified; N40.0 Benign prostatic hyperplasia without lower urinary tract symptoms; E78.5 Hyperlipidemia, unspecified; G47.33 Obstructive sleep apnea (adult) (pediatric); Z68.35 Body mass index [BMI] 35.0-35.9, adult; E66.01 Morbid (severe) obesity due to excess calories; R33.9 Retention of urine, unspecified; R74.0 Nonspecific elevation of levels of transaminase and lactic acid dehydrogenase [LDH]; I25.119 Atherosclerotic heart disease of native coronary artery with unspecified angina pectoris
CPT/HCPCS: 36415; 71045-TC-FY; 74176-TC; 74181-TC; 76000-TC-FY; 76705-TC; 76775-TC; 76856-TC; 80048; 80053; 80076; 81003; 81015; 82150; 82248; 82550; 82570; 82962; 83605; 83615; 83690; 83735; 83880; 84100; 84156; 84478; 84484; 85025; 85027; 85610; 86140; 86704; 86706; 86708; 86803; 87040; 87076; 87086; 87340; 87804; 93005; 93010; 93306-TC; 94640; 94660; 94761; 97116-GP; 97161-GP; 99282-25; J0131; J1644; J7030

== ENCOUNTER 2018-10-01 07:31 | Day surgery (SDC) | payer OTHER ==
[2018-09-30 15:00] VITALS: BMI 35.1
[2018-10-01] MEDS ORDERED: IOHEXOL 300 MG/ML INFUS..BTL IV ONE (09:30)
[2018-10-01] MEDS ORDERED: CEFAZOLIN 1 GM/D5W 2 GM/100 ML BAG ONE (09:34)
[2018-10-01] MEDS ORDERED: ceFAZolin 2 GRAM PREMIX BAG IVPB ONE ×2 (09:40→09:43)
[2018-10-01 10:13] VITALS: TEMP 97.5
[2018-10-01] MEDS ORDERED: CEFAZOLIN 2 GM/D5W 2 GM/50 ML ML IVPB ONE (10:15)
[2018-10-01 12:34] VITALS: BP 144/68; PULSE 58
--- NOTE | 2018-10-04 12:07 | PATH ---
Surgical Pathology Report Patient Name: CAMERON ACEVEDO Med. Rec. #: [id number] /Age/Gender: 1930 (Age: 88) / M Account: [id number] Location: [facility]-ENDOSCOPY Taken: 10/01/2018 Received: 10/01/2018 Reported: 10/04/2018 Physicians: Pinky Smalls M.D. Specimen(s) Received OLD CBD STENT Clinical History Stent removal, possible CBD stone removal Final Diagnosis OLD CBD STENT, REMOVAL: CONSISTENT WITH BILIARY STENT. MACROSCOPIC DIAGNOSIS. Electronically Signed Ella Muñiz M.D. Gross Description Received fresh labeled "old CBD stent," is a 16 cm in length blue, coiled portion of tubing, consistent with a biliary stent. No soft tissue is present. No sections are submitted, gross only. DL/10/01/2018 saudi/10/01/2018
== END 2018-10-01 12:20 | disposition home or self-care (01) ==
LOC: JASU-ENDO 07:31
PROVIDERS: ATTEND Internal Medicine Gastroenterology
PROC: 0FC98ZZ Extirpation of Matter from Common Bile Duct, Via Natural or Artificial Opening Endoscopic (ICD-10-PCS; 2018-10-01)
PROC: 0FPB8DZ Removal of Intraluminal Device from Hepatobiliary Duct, Via Natural or Artificial Opening Endoscopic (ICD-10-PCS; principal; 2018-10-01 08:30)
DX: K80.50 Calculus of bile duct without cholangitis or cholecystitis without obstruction (principal); E11.9 Type 2 diabetes mellitus without complications; I10 Essential (primary) hypertension
CPT/HCPCS: 76000-TC-FY; 88300-TC